=== PATIENT | male | born 1940 | race Caucasian/White ===

== ENCOUNTER 2018-04-27 13:39 | Outpatient (CLI) | payer MEDICARE, BC | END 2018-04-27 13:40 | disposition home or self-care (01) | LOC: LABBT 13:39 | PROVIDERS: ATTEND Internal Medicine Cardiovascular Disease | DX: Z01.818 Encounter for other preprocedural examination (principal); I48.92 Unspecified atrial flutter | CPT/HCPCS: 93005; 93010 ==

== ENCOUNTER 2018-05-03 09:51 | Day surgery (SDC) | payer MEDICARE, BC ==
[2018-04-27 14:01] VITALS: BMI 28.5
[2018-05-03] MEDS ORDERED: Lidocaine 1% PF 5 ML VIAL ONE ×2 (09:55→12:34)
[2018-05-03] MEDS ORDERED: PROPOFOL 200 MG/20 ML VIAL ONE (09:55)
--- NOTE | 2018-05-03 19:01 | ECHO ---
DATE OF SERVICE: 05/03/2018. PREPROCEDURE DIAGNOSIS: Atrial flutter. PROCEDURES PERFORMED: Transesophageal echo. The anesthesiology department provided with sedation for the patient. Please see their notes for det ails. After adequate sedation was achieved, the transesophageal probe was inserted into the mouth and into the esophagus and multiplanar views were then obtained. Left ventricle is normal size with normal wall thickness. Systolic function is normal with estimated EF at 50-55%. Left atrium is severely dilated. Left atrial appendage is small with normal velocities. No evidence of mass or thrombus. Right atrium is mildly dilated. No mass or thrombus. Interatrial septum appears to be intact by color Doppler. Right ventricle is not entirely well seen. Aortic valve is structurally normal. Three cusps, no stenosis or regurgitation. Mitral valve is structurally normal. There is mild MR, no stenosis. Tricuspid valve structurally normal. There is mild TR. Pulmonary valve is structurally normal. There is no stenosis or regurgitation. Thoracic aorta is without significant atherosclerotic disease. CONCLUSIONS: 1. Normal systolic function, EF of 50-55%. 2. Severely dilated left atrium. 3. Left atrial appendage is small without mass or thrombus, normal velocities. 4. The patient in atrial flutter during procedure. 5. Mild MR, mild TR.
--- NOTE | 2018-05-03 19:07 | OP ---
DATE OF SERVICE: 05/03/2019. PROCEDURES PERFORMED. Synchronized DC cardioversion. SUMMARY: The patient was brought to the outpatient area for a planned SILVIANO cardioversion. Please see SILVIANO repor t for further detail. After adequate sedation was achieved by the Anesthesia Department and the SILVIANO showed no evidence of t hrombus in the left atrial appendage, one single 150 joules synchronized cardioversion shock was del ivered successfully converting him from atrial flutter into sinus bradycardia. Patient tolerated pro cedure well. RECOMMENDATIONS: 1. Continue flecainide, Eliquis and beta jeferson. 2. Follow up in the office in 1 month.
--- NOTE | 2018-05-07 22:10 | EKG ---
Test Reason : PREOP Blood Pressure : / mmHG Vent. Rate : 050 BPM Atrial Rate : 250 BPM P-R Int : 000 ms QRS Dur : 098 ms QT Int : 506 ms P-R-T Axes : 252 -17 -09 degrees QTc Int : 461 ms Atrial flutter with variable A-V block Moderate voltage criteria for LVH, may be normal variant Junctional ST depression, probably normal Abnormal ECG Confirmed by LIZBETH SARAH (2) on 05/07/2018 10:09:39 PM Referred By: NATE Confirmed By:LIZBETH SARAH
== END 2018-05-03 14:01 | disposition home or self-care (01) ==
LOC: CCL 09:51
PROVIDERS: ATTEND Internal Medicine Cardiovascular Disease
PROC: B24BZZ4 Ultrasonography of Heart with Aorta, Transesophageal (ICD-10-PCS; principal; 2018-05-03)
PROC: 5A2204Z Restoration of Cardiac Rhythm, Single (ICD-10-PCS; 2018-05-03)
DX: I48.3 Typical atrial flutter (principal); I08.1 Rheumatic disorders of both mitral and tricuspid valves; I10 Essential (primary) hypertension; Z79.01 Long term (current) use of anticoagulants; Z79.899 Other long term (current) drug therapy
CPT/HCPCS: 92960; 93005; 93010; 93312; J2001; J2704

== ENCOUNTER 2018-08-11 08:57 | Outpatient (CLI) | payer MEDICARE, BC ==
--- NOTE | 2018-08-11 13:14 | PET ---
RADIONUCLIDE PET SCAN WITH CT ATTENUATION CORRECTION: HISTORY: Gastric cancer. Pancreatic mass. No prior imaging is available for direct correlation. FINDINGS: A large, ill-defined mass at the posterior aspect of the gastric fundus also involves the pancreatic tail and splenic artery, very poorly defined on the noncontrast images. Maximum SUV is 24.2. Near it in the left upper quadrant, an ill-defined soft tissue density mass estimated at 4.7 cm diameter show s maximum SUV of 31.3. Multiple additional ill-defined masses are scattered throughout the peritoneal cavity. A small implan t at the left anterior upper quadrant peritoneum shows maximum SUV of 10.9. Within the right upper qu adrant, a large lobular soft tissue density mass, estimated at 9.0 cm, shows maximum SUV of 22.2. At the lateral aspect of the right lower quadrant, a smaller soft tissue density mass, estimated at 2.0 cm, shows maximum SUV of 12.4. Within the left lower quadrant, an ill-defined soft tissue density mas s involving the sigmoid colon shows maximum SUV of 34.5. Deep within the dependent portion of the pel vis, uptake is favored to be associated with free fluid and shows a maximum SUV of 23.1. At the anterior aspect of the left upper lung lobe, a 1.4 cm linear soft tissue density lesion shows maximum SUV O0f 2.6. A prevascular mediastinal lymph node, estimated at 2.7 cm, shows maximum SUV of 5.7. Old, traumatic injury of the right posterolateral chest wall is apparent. Cysts arise from the cortex of each kidney. There is mild distention of the left renal collecting system and proximal ureter. A stone is not visible. Partial obstruction may be related to the metastatic intra-abdominal implants o r reactive inflammation. Small amount of free fluid is also seen over the dome of the liver. IMPRESSION: 1. Multiple hypermetabolic masses throughout the abdomen, consistent with widespread metastatic dise ase. The largest masses are associated with posterior wall of gastric fundus and pancreatic tail, and with intraperitoneal ill-defined soft tissue density masses throughout each side of the abdomen, as detailed above. 2. Metastatic disease also involves the left upper lobe lung and the prevascular mediastinal lymph n ode. POS: [facility]
== END 2018-08-11 08:58 | disposition home or self-care (01) ==
LOC: PET 08:57
PROVIDERS: ATTEND Internal Medicine Hematology & Oncology
DX: C16.9 Malignant neoplasm of stomach, unspecified (principal); C78.01 Secondary malignant neoplasm of right lung; C77.1 Secondary and unspecified malignant neoplasm of intrathoracic lymph nodes; R19.09 Other intra-abdominal and pelvic swelling, mass and lump
CPT/HCPCS: 78815; A9552

== ENCOUNTER 2018-08-16 09:53 | Outpatient (CLI) | payer MEDICARE, BC ==
--- NOTE | 2018-08-16 11:25 | RAD ---
TWO VIEWS OF THE CHEST: Comparison: None. History: Pre-operative radiograph. FINDINGS: Two views of the chest shows a normal sized cardiomediastinal silhouette. There is no evidence of con solidation, mass, or pleural effusion. Multiple remote right rib fractures are seen. IMPRESSION: No evidence of acute cardiopulmonary disease. POS: [facility]
--- NOTE | 2018-08-16 17:13 | EKG ---
Test Reason : Blood Pressure : / mmHG Vent. Rate : 051 BPM Atrial Rate : 051 BPM P-R Int : 000 ms QRS Dur : 106 ms QT Int : 470 ms P-R-T Axes : 000 -08 022 degrees QTc Int : 433 ms Sinus arrhythmia Minimal voltage criteria for LVH, may be normal variant Cannot exclude Anterior infarct , age undetermined T wave abnormality, consider anterior ischemia Abnormal ECG Confirmed by SELMA WHITFIELD ([id number]) on 08/16/2018 5:13:37 PM Referred By: SCHUYLER Confirmed By:SELMA WHITFIELD
== END 2018-08-16 09:54 | disposition home or self-care (01) ==
LOC: LABBT 09:53
PROVIDERS: ATTEND Specialist
DX: Z01.818 Encounter for other preprocedural examination (principal); C16.9 Malignant neoplasm of stomach, unspecified; K86.9 Disease of pancreas, unspecified; R16.0 Hepatomegaly, not elsewhere classified
CPT/HCPCS: 71046; 93005; 93010

== ENCOUNTER 2018-08-22 11:25 | Day surgery (SDC) | payer MEDICARE, BC ==
[2018-08-16 10:56] VITALS: BMI 26.6
[2018-08-22] MEDS ORDERED: Ketorolac Tromethamine 30 MG/ML VIAL ONE (12:20)
[2018-08-22] MEDS ORDERED: ceFAZolin Sodium 2 GM/100 ML BAG ONE (12:20)
[2018-08-22] MEDS ORDERED: Lidocaine 1% (PF) 30 ML VIAL ONE (12:32)
[2018-08-22] MEDS ORDERED: Bupivacaine/Epinephrine 0.25% 30 ML VIAL ONE (12:32)
[2018-08-22] MEDS ORDERED: Propofol 500 MG/50 ML VIAL ONE (12:45)
[2018-08-22] MEDS ORDERED: Fentanyl 100 MCG/2 ML VIAL ONE (13:17)
[2018-08-22] MEDS ORDERED: Lidocaine 1% PF 5 ML VIAL ONE (13:40)
[2018-08-22] MEDS ORDERED: ePHEDrine 50 MG/ML VIAL ONE (13:40)
[2018-08-22] MEDS ORDERED: PROPOFOL 200 MG/20 ML VIAL ONE (13:40)
[2018-08-22] MEDS ORDERED: Ondansetron PF 4 MG/2 ML Vial ONE (13:40)
--- NOTE | 2018-08-22 16:10 | RAD ---
CHEST ONE VIEW: HISTORY: Mediport placement. COMPARISON: Chest radiograph from 08/16/2018. FINDINGS: A new port catheter is in place with the tip at the inferior SVC, in good position. Multiple dysplas tic right-sided old rib fractures. The aorta is mildly tortuous. IMPRESSION: Uncomplicated placement of port catheter. No pneumothorax. POS: [facility]
--- NOTE | 2018-08-23 09:58 | OP ---
DATE OF PROCEDURE: 08/22/2018 PREOPERATIVE DIAGNOSIS: Gastroesophageal cancer. POSTOPERATIVE DIAGNOSIS: Gastroesophageal cancer PROCEDURE PERFORMED: Placement of right subclavian standard-sized power compatible MediPort. ANESTHESIA: Total intravenous anesthesia with local using 0.25% Marcaine with epinephrine. INDICATIONS: The patient is a 78-year-old white male. He has recently been diagnosed with a distal esophageal malignancy. Chemotherapy has been recommended. MediPort placement has been requested for this purpose. DESCRIPTION OF OPERATION: Informed consent was obtained. The patient was taken to the operating room where total intravenous anesthesia was obtained with the patient in supine position. Right periclavicular area was prepped with ChloraPrep and draped in sterile fashion. Local anesthetic was infiltrated and a large-gauge needle was passed under the clavicle in the subclavian vein. Guidewire was passed through the needle and fluoroscopically confirmed to enter the superior vena cava. Additional local anesthetic was infiltrated and transverse incision was created based on needle insertion site. A subcutaneous pocket was dissected inferiorly. Introducer dilator was passed over the guidewire under fluoroscopic guidance. The guidewire and dilator were removed, and the catheter was passed through the introducer. The tip of the catheter was positioned at the atriocaval junction and the catheter was trimmed to the appropriate length and secured to the locking hub of the MediPort. The port was then placed in the subcutaneous pocket where it was secured to the pectoral fascia with 2 interrupted sutures of 3-0 Prolene. The incision was then closed in layers with 3-0 and 4-0 Monocryl. Additional local anesthetic was infiltrated. The port was cannulated with a Melissa needle and it aspirated blood freely and was flushed with heparinized saline. Dermabond was placed externally on the skin incision. There were no complications. Blood loss was negligible. The patient tolerated the procedure well and was taken to recovery room in stable condition. FINDINGS: A standard size port was placed uneventfully into the right subclavian vein. The patient had normal anatomy internally and externally. There was essentially no blood loss and there were no complications. The patient tolerated the procedure well. Job ID: [id number]
== END 2018-08-22 15:31 | disposition home or self-care (01) ==
LOC: SDC 11:25
PROVIDERS: ATTEND Specialist
PROC: 02HV33Z Insertion of Infusion Device into Superior Vena Cava, Percutaneous Approach (ICD-10-PCS; principal; 2018-08-22)
PROC: B518ZZA Fluoroscopy of Superior Vena Cava, Guidance (ICD-10-PCS; 2018-08-22)
DX: C15.5 Malignant neoplasm of lower third of esophagus (principal); I10 Essential (primary) hypertension; K86.9 Disease of pancreas, unspecified; Z79.899 Other long term (current) drug therapy; Z98.890 Other specified postprocedural states
CPT/HCPCS: 71045; C1788; J0131; J0690; J1642; J1885; J2001; J2405; J2704; J3010; J3490

== ENCOUNTER 2018-10-09 16:02 | Inpatient (IN) | payer MEDICARE, BC ==
[2018-10-09 18:05] VITALS: BMI 24.2
[2018-10-09] MEDS ORDERED: Acetaminophen 325 MG TAB PO PRN (18:15)
[2018-10-09 18:53] LABS: Bilirubin Negative (Negative); Blood, Urine Negative (Negative); Clarity CLEAR (Clear); Glucose, Urine (Dipstick) Negative (Negative); Leukocyte Negative (Negative); Nitrite Negative (Negative); Protein, Urine (Dipstick) Negative (Neg-Trace); Specific Gravity, Urine 1.015 (1.002-1.036)
[2018-10-09 18:56] LABS: Bacteria/HPF None Seen HPF (None Seen); Hyaline Casts/LPF 0-3 HYALINE CAST LPF (0-3 Hyaline); RBC/HPF 0-3 HPF (0-3); Squamous Epithelial None Seen HPF (0-3); WBC/HPF 0-3 HPF (0-3)
[2018-10-09 19:14] LABS: ALT (SGPT) 16 U/L (8-55); AST (SGOT) 30 U/L (5-34); Albumin 3.3 g/dL (3.4-4.8); Alkaline Phosphatase 111 U/L (40-150); Anion Gap 10 mmol/L (10-20); BUN (Urea Nitrogen) 27 mg/dL (8.4-25.7); Bilirubin, Total 0.7 mg/dL (0.2-1.2); Calc. Creatinine Clearance 56 mL/min (70-130); Calcium 8.2 mg/dL (7.8-10.44); Carbon Dioxide 26 mmol/L (23-31); Chloride 101 mmol/L (98-107); Estimated GFR-MDRD 49; Globulin 2.1 g/dL (2.4-3.5); Glucose 131 mg/dL (83-110); Protein, Total 5.4 g/dL (5.8-8.1); Sodium 133 mmol/L (136-145)
[2018-10-09] MEDS ORDERED: Ondansetron PF 4 MG/2 ML Vial IVP PRN (21:09)
[2018-10-09] MEDS ORDERED: Ondansetron ODT 4 MG TAB PO PRN (21:09)
[2018-10-09] MEDS: Flecainide 50 MG TAB PO SCH (21:14)
[2018-10-09] MEDS: Cefepime 2 GM in Sodium Chloride 0.9% 100 ML IVPB SCH (22:09)
--- NOTE | 2018-10-10 03:29 | HP ---
PRIMARY CARE DOCTOR: Dr. Valdez. CODE STATUS: Full code. TIME OF EVALUATION: 9 p.m. CHIEF COMPLAINT: Fever. HISTORY OF PRESENT ILLNESS: This is a 78-year-old male patient with past medical history of gastric cancer recently diagnosed, being treated by Dr. Brendon Valdez. The patient received the last chemo on Tuesday and he reported that he gone to see Dr. Valdez through the [facility] because he was very weak and also he was found to have fever with no clear triggers and no alleviating factors. Symptoms were moderate. REVIEW OF SYSTEMS: CONSTITUTIONAL: The patient has fever, chills, generalized weakness. RESPIRATORY: The patient has low oxygen, needing oxygen by nasal cannula, scant cough and sputum production, mild shortness of breath. CARDIOVASCULAR: No chest pain or palpitation. GASTROINTESTINAL: No nausea. No vomiting, diarrhea, or abdominal pain. BABY SITTER: No dizziness, headache, or feeling lightheaded. GENITOURINARY: No burning on urination. EXTREMITIES: No leg swelling. All other systems were reviewed and negative except for the findings mentioned above. PAST MEDICAL HISTORY: Positive for gastric cancer, status post chemo, also history of A-flutter treated by Dr. Truong. FAMILY HISTORY: Reviewed and noncontributory for current presentation. SOCIAL HISTORY: The patient lives with family. No alcohol. No drugs. PAST SURGICAL HISTORY: Hip replacement, SILVIANO by Dr. Truong. ALLERGIES: NO KNOWN DRUG ALLERGIES. REPORTED MEDICATIONS: 1. Metoprolol 12.5 mg p.o. daily (Toprol-XL). 2. Flecainide. 3. Ferrous sulfate. 4. Multivitamins. PHYSICAL EXAMINATION: VITAL SIGNS: On presentation, the patient had fever in the [facility]. In the hospital, temperature was 98.6, blood pressure and heart rate within normal limits. The patient was hypoxic, needing nasal cannula 2 L to keep saturation above 90. GENERAL APPEARANCE: The patient is alert, oriented, not in acute distress. HEENT: Eyes, normal conjunctiva. Moist oral mucosa. Anicteric. No JVD. RESPIRATORY: Bilateral air entry. No rales. No wheezing. Symmetric expansion. CARDIOVASCULAR: Normal rate, regular rhythm. No murmurs. No gallop. No edema. ABDOMEN: Soft. Normal bowel sounds. MUSCULOSKELETAL: Baseline range of motion and strength. No tenderness. SKIN: Warm, intact. No pallor. No rash. No redness. Peripheral pulses are present. Capillary refill seems to be intact. NEURO: No evidence of any new focal weakness. Baseline speech. Cranial nerves seems to be intact. PSYCH: The patient is in good mood. No anxiety. Optimal judgment. LABORATORY DATA: Chest x-ray was done and the most likely patient to have pneumonia. We will need confirmation from chest x-ray and await to follow radiology results. Labs were reviewed. The patient has sodium 133, potassium 4.0, chloride 101, carbon dioxide 26, anion gap 10, BUN 27, creatinine 1.41, the previous creatinine was 1.69, GFR was 49, glucose 131, calcium 8.2, total bilirubin 0.7. LFTs were negative. Beta-natriuretic peptide 170. Albumin 3.3, globulin 2.1. Serum total protein is 5.4. UA was done and was negative. ASSESSMENT AND PLAN: The patient will be placed in the hospital with following medical problems: 1. Severe anemia. Also, the hemoglobin is in the paper chart reportedly, the hemoglobin was around 6. The patient receiving 3 PRBCs that has been ordered during admission to the hospital. Oncology to follow this problem. We will follow recommendations. 2. Possible pneumonia. The patient has shortness of breath, needing oxygen. Chest x-ray is pending. The patient had fever. We have placed him on antibiotics so far. We will follow cultures and adjust treatment as needed depending on sensitivity. 3. History of stomach cancer. This problem is being followed by Dr. Valdez, follow recommendations, has been consulted. 4. hx of atrial flutter. The patient has been followed with Dr. Truong in the past. This problem is chronic and is stable. No need for acute intervention at this point. Reconcile home medications. 5. Deep venous thrombosis prophylaxis. We will apply SCDs. 6. Acute hypoxic respiratory failure - needing oxygen on presentation to keep saturation above 90, likely due to pneumonia treatment as above. Job ID: [id number] [facility]
[2018-10-10 03:35] LABS: Band 9 % (5-11); Hemoglobin 6.3 g/dL (14.0-18.0); Lymphocytes 18 % (21-51); MDiff Complete? YES; Mean Corpuscular HGB CONC 32.5 g/dL (32.0-36.0); Mean Corpuscular Hemoglobin 30.8 pg (27.0-31.0); Mean Corpuscular Volume 94.7 fL (78.0-98.0); Mean Platelet Volume 8.3 fL (7.4-10.4); Monocytes 13 % (0-10); Neutrophil 60 % (42-75); Platelet Count 74 thou/uL (130-400); Platelet Morphology Comment Appears Decreased; RBC Distribution Width 15.2 % (11.5-14.5); Red Blood Cell (RBC) Count 2.05 mill/uL (4.70-6.10); White Blood Cell (WBC) Count 8.3 thou/uL (4.8-10.8)
[2018-10-10 03:55] LABS: Anion Gap 9 mmol/L (10-20); BUN (Urea Nitrogen) 29 mg/dL (8.4-25.7); Calc. Creatinine Clearance 62 mL/min (70-130); Calcium 7.9 mg/dL (7.8-10.44); Carbon Dioxide 26 mmol/L (23-31); Chloride 104 mmol/L (98-107); Estimated GFR-MDRD 55; Glucose 116 mg/dL (83-110); Sodium 135 mmol/L (136-145)
--- NOTE | 2018-10-10 08:52 | RAD ---
CHEST TWO VIEWS: Indication: History of hypoxia. Comparison: 08-22-18 FINDINGS: Right chest wall port is stable. Mild cardiomegaly is stable. Chronic lung changes are similar appear ing. There is stable post-traumatic deformity involving the right posterolateral chest wall. No airsp giovanni opacity, pleural effusion or pneumothorax was evident. IMPRESSION: Stable exam. No acute cardiopulmonary abnormality. POS: [facility]
[2018-10-10] MEDS: Flecainide 50 MG TAB PO SCH ×2 (09:07→21:36)
[2018-10-10] MEDS: Multivit, Therapeutic 1 TAB PO SCH (09:08)
[2018-10-10] MEDS: Ferrous Sulfate 325 MG TAB PO SCH (09:08)
[2018-10-10] MEDS: Cefepime 2 GM in Sodium Chloride 0.9% 100 ML IVPB SCH ×2 (09:09→21:37)
[2018-10-10 09:34] LABS: Hemoglobin 6.5 g/dL (14.0-18.0)
[2018-10-10 16:21] LABS: Hemoglobin 6.9 g/dL (14.0-18.0)
--- NOTE | 2018-10-10 17:05 | PDOC.PN ---
- Subjective Encounter Start Date: 10/10/18 Encounter Start Time: 17:03 Subjective: Admitted due to worsening weakness after chemotherapy. -: Also had low grade fever temp of 100.4 and severe anemia of 6. -: S/p 2 PRBC with no significant increase in Hb. Feeling better overall. - Objective Resuscitation Status - Order Detail: 10/09/18 21:09 Resuscitation Status Routine Resuscitation Status: FULL: Full Resuscitation Vital Signs & Weight: Vital Signs (12 hours) Temp Pulse Pulse Resp BP BP Pulse Ox 10/10/18 15:11 98.0 F 60 18 139/68 10/10/18 12:40 97.4 F L 58 L 18 136/67 10/10/18 12:27 97.9 F 59 L 18 121/61 10/10/18 11:40 98.0 F 68 18 128/67 97 10/10/18 08:00 97 10/10/18 07:50 98.1 F 71 18 139/76 97 Weight Admit Weight 198 lb 14.4 oz Weight 198 lb 14.4 oz I&O: 10/09/18 10/10/18 10/11/18 06:59 06:59 06:59 Intake Total 1280 1087 Output Total 1000 900 Balance 280 187 Result Diagrams: 10/10/18 15:50 10/10/18 03:05 Phys Exam - Physical Examination Constitutional: NAD HEENT: PERRLA, moist MMs Neck: supple Respiratory: no wheezing, no rhonchi fair air entry with right base crackles. Cardiovascular: RRR Gastrointestinal: soft, positive bowel sounds Musculoskeletal: no edema, pulses present Neurological: non-focal, moves all 4 limbs Psychiatric: A&O x 3 Dx/Plan (1) Acute on chronic anemia Code(s): D64.9 - ANEMIA, UNSPECIFIED Status: Acute (2) Thrombocytopenia Code(s): D69.6 - THROMBOCYTOPENIA, UNSPECIFIED Status: Acute (3) Atrial flutter Code(s): I48.92 - UNSPECIFIED ATRIAL FLUTTER Status: Acute (4) Iron deficiency anemia Code(s): D50.9 - IRON DEFICIENCY ANEMIA, UNSPECIFIED Status: Acute (5) CKD (chronic kidney disease) Code(s): N18.9 - CHRONIC KIDNEY DISEASE, UNSPECIFIED Status: Acute (6) Gastric cancer Status: Acute (7) Right lower lobe pneumonia Code(s): J18.1 - LOBAR PNEUMONIA, UNSPECIFIED ORGANISM Status: Acute (8) HTN (hypertension) Code(s): I10 - ESSENTIAL (PRIMARY) HYPERTENSION Status: Acute (9) Physical deconditioning Code(s): R53.81 - OTHER MALAISE Status: Acute - Plan Transfuse 1 more PRBC. Monitor H/H -: Replete bodys iron with IV iron -: Continue antibiotics. -: cardiology and Oncology following. -: PT eval and treat. * .
[2018-10-10] MEDS ORDERED: Sodium Chloride 0.9% (PF) 10 ML VIAL FS PRN (17:53)
[2018-10-10] MEDS: Pantoprazole 40 MG VIAL IVP SCH (20:20)
[2018-10-10] MEDS: Iron, Sodium Ferric Gluconate 250 MG in Sodium Chloride 0.9% 100 ML IVPB SCH (20:20)
--- NOTE | 2018-10-11 00:14 | CON ---
DATE OF CONSULTATION: REASON FOR CONSULT: Adenocarcinoma of the stomach. HISTORY OF PRESENT ILLNESS: Mr. 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 At the time of diagnosis, he had a hemoglobin of 5.3 and was transfused 4 units. He was seen by Dr. Miller. He was started on chemotherapy consisting of FOLFOX and Herceptin. He has received 4 doses, his 1st one was September 05, last dose was October 03. His hemoglobin has been stable throughout treatment with hemoglobin in the upper 7 range. He presented to the clinic yesterday with complaints of shortness of breath and weakness. He had 103.1 fever. He had low oxygen saturation on room air. His hemoglobin was 6.2 at that time. He was admitted for fever and anemia. He was started on antibiotics. All cultures are currently negative. He has received 3 units of packed RBCs with minimal improvement of his hemoglobin to 6.9. He did have a positive occult blood in his stool. He has been afebrile since admission. PAST MEDICAL HISTORY: 1. Stage IV gastric cancer. 2. Hypertension. PAST SURGICAL HISTORY: 1. Hip surgery. 2. Endoscopy. 3. Biopsy. ALLERGIES: NO KNOWN DRUG ALLERGIES. HOME MEDICATIONS: 1. Ferrous sulfate 325 daily. 2. Flecainide acetate 50 mg q.12 hours. 3. Toprol-XL 25 mg daily. 4. Protonix 40 mg b.i.d. FAMILY HISTORY: Sisters had breast cancer. SOCIAL HISTORY: , has 2 children. Lives with his spouse. No alcohol, tobacco, or illicit drug use. REVIEW OF SYSTEMS: A 10-point review of systems is negative except for noted in HPI. PHYSICAL EXAMINATION: VITAL SIGNS: Temperature is 98.0, pulse is 18, respiratory rate 16, BP is 139/ 68. GENERAL: This is a well-developed, well-nourished male, in no acute distress. HEENT: Normocephalic, atraumatic. Pupils are equal and reactive to light. NECK: Supple. CV: Regular rate and rhythm. LUNGS: He has rhonchi on right posterior. GI: No nausea, vomiting, diarrhea, constipation, or abdominal pain. : No dysuria or hematuria. MUSCULOSKELETAL: No joint or back pain. SKIN: No rash or pruritus. HEMATOLOGICAL: No petechiae or purpura. NEUROLOGICAL: Nonfocal. PSYCH: He is alert, oriented and appropriate. PERTINENT LABS AND X-RAYS: Current WBCs 8.3, hemoglobin 6.9, hematocrit 21.0, platelet count is 74,000. He has 60% neutrophils, 9% bands, 18% lymphocytes. Sodium is 135, potassium 4.9, chloride 104, CO2 is 26, BUN is 29, creatinine 1.27, calcium is 7.9, bilirubin is 0.7, AST is 30, ALT 16, alkaline phosphatase is 111. BNP is 170. Serum total protein 5.4, albumin 3.3, globulin 2.1. Urine was negative. Chest x-ray showed no acute process. ASSESSMENT: 1. Stage IV gastric cancer. 2. Severe symptomatic anemia secondary to gastrointestinal bleeding and chemotherapy. 3. Fever. DISCUSSION: The patient has been transfused 3 units of packed RBCs. He does have positive blood in his stool. We will begin Protonix and monitor his CBC closely. Consult Dr. Miller for his opinion. He will be continued on antibiotics. His cough and upper respiratory symptoms are much improved since admission. Case was discussed with Dr. Valdez. Thank you for the consult. We will follow him closely. Job ID: [id number] [facility]
[2018-10-11] MEDS ORDERED: Benzonatate 100 MG CAP PO PRN (01:14)
[2018-10-11 06:17] LABS: Anion Gap 10 mmol/L (10-20); BUN (Urea Nitrogen) 25 mg/dL (8.4-25.7); Calc. Creatinine Clearance 65 mL/min (70-130); Calcium 7.9 mg/dL (7.8-10.44); Carbon Dioxide 26 mmol/L (23-31); Chloride 104 mmol/L (98-107); Estimated GFR-MDRD 58; Glucose 148 mg/dL (83-110); Magnesium 2.1 mg/dL (1.6-2.6); Potassium 3.5 mmol/L (3.5-5.1); Sodium 136 mmol/L (136-145)
[2018-10-11 06:31] LABS: Mean Corpuscular HGB CONC 33.2 g/dL (32.0-36.0); Mean Corpuscular Hemoglobin 31.3 pg (27.0-31.0); Mean Corpuscular Volume 94.1 fL (78.0-98.0); Mean Platelet Volume 8.2 fL (7.4-10.4); Platelet Count 68 thou/uL (130-400); RBC Distribution Width 15.5 % (11.5-14.5); Red Blood Cell (RBC) Count 2.22 mill/uL (4.70-6.10); White Blood Cell (WBC) Count 5.3 thou/uL (4.8-10.8)
[2018-10-11 06:40] LABS: Anisocytosis SLIGHT = 6-15 cells (100X) (0-5/hpf); Band 7 % (5-11); Eosinophils 1 % (0-10); Lymphocytes 19 % (21-51); MDiff Complete? YES; Monocytes 19 % (0-10); Myelocyte 1 % (0-0); Neutrophil 53 % (42-75); Platelet Morphology Comment Appears Decreased
--- NOTE | 2018-10-11 08:23 | PRG ---
DATE OF SERVICE: 10/11/2018 SUBJECTIVE: The patient is feeling better today and had a good night's rest; however, he does complain of severe dry cough and has started Tessalon Perles with almost resolution of the cough. Denies any shortness of breath and otherwise feels well. He has not had a bowel movement yesterday, which was black. OBJECTIVE: VITAL SIGNS: Temperature 98.2, pulse 70, respirations 18, saturating 94% on room air, blood pressure 138/65. GENERAL APPEARANCE: The patient is lying in bed, in no acute distress. HEENT: Normocephalic, atraumatic, pale. Respirations are nonlabored. NEUROLOGIC: Cranial nerves 2 through 12 are grossly intact. PSYCH: A and O x3. LABORATORY DATA: White blood cells 5.3, hemoglobin 7.0, platelets 68. Sodium 136, potassium 3.5, BUN 25, creatinine 1.22, glucose 148, calcium 7.9, magnesium 2.1. ASSESSMENT AND PLAN: A 78-year-old male with metastatic gastric cancer, currently on the FOLFOX plus Herceptin, presenting with likely upper gastrointestinal bleed. The patient has a known stomach mass and ulcer, and has had bleeding and blood transfusions in the past. The patient has received 3 units of blood on this admission with minimal improvement, and after his last transfusion, his hemoglobin went to 6.9 and over the last 12 hours, has been stable and is currently 7.0. Dr. Miller has been consulted and should see the patient this morning, and we will await his decision if any intervention is needed at this time. I am going to also recheck his CBC again in the next 8 to 12 hours. We will continue to follow. Job ID: [id number]
[2018-10-11] MEDS ORDERED: Pantoprazole 40 MG VIAL IVP SCH (09:00)
[2018-10-11] MEDS: Ferrous Sulfate 325 MG TAB PO SCH (09:16)
[2018-10-11] MEDS: Flecainide 50 MG TAB PO SCH ×2 (09:16→21:16)
[2018-10-11] MEDS: Cefepime 2 GM in Sodium Chloride 0.9% 100 ML IVPB SCH ×2 (09:17→21:17)
[2018-10-11] MEDS: Multivit, Therapeutic 1 TAB PO SCH (09:17)
[2018-10-11] MEDS: Iron, Sodium Ferric Gluconate 250 MG in Sodium Chloride 0.9% 100 ML IVPB SCH (10:24)
--- NOTE | 2018-10-11 14:52 | PDOC.PN ---
- Subjective Encounter Start Date: 10/11/18 Encounter Start Time: 12:51 Subjective: Feeling better. -: S/p 3 PRBC. -: Denied fever or SOB. getting stronger - Objective Resuscitation Status - Order Detail: 10/09/18 21:09 Resuscitation Status Routine Resuscitation Status: FULL: Full Resuscitation Vital Signs & Weight: Vital Signs (12 hours) Temp Pulse Resp BP Pulse Ox 10/11/18 12:00 98.2 F 61 16 143/71 H 95 10/11/18 08:00 94 L 10/11/18 07:55 97.9 F 62 18 129/76 94 L 10/11/18 04:00 98.2 F 70 18 138/65 94 L Weight Admit Weight 198 lb 14.4 oz Weight 198 lb 14.4 oz I&O: 10/10/18 10/11/18 10/12/18 06:59 06:59 06:59 Intake Total 1280 1687 237 Output Total 1000 2050 Balance 280 -363 237 Result Diagrams: 10/11/18 05:45 10/11/18 05:45 Phys Exam - Physical Examination Constitutional: NAD HEENT: PERRLA, moist MMs Neck: no JVD, supple Respiratory: no wheezing, no rhonchi fair air ewntry bilaterally with few bibasal crackles/transmitted sound. Cardiovascular: irregular Gastrointestinal: soft, non-tender, no distention, positive bowel sounds Musculoskeletal: no edema, pulses present Neurological: non-focal, moves all 4 limbs Psychiatric: A&O x 3 Dx/Plan (1) Acute on chronic anemia Code(s): D64.9 - ANEMIA, UNSPECIFIED Status: Acute (2) Thrombocytopenia Code(s): D69.6 - THROMBOCYTOPENIA, UNSPECIFIED Status: Acute (3) Atrial flutter Code(s): I48.92 - UNSPECIFIED ATRIAL FLUTTER Status: Acute (4) Iron deficiency anemia Code(s): D50.9 - IRON DEFICIENCY ANEMIA, UNSPECIFIED Status: Acute (5) CKD (chronic kidney disease) Code(s): N18.9 - CHRONIC KIDNEY DISEASE, UNSPECIFIED Status: Acute (6) Gastric cancer Status: Acute (7) Right lower lobe pneumonia Code(s): J18.1 - LOBAR PNEUMONIA, UNSPECIFIED ORGANISM Status: Acute (8) HTN (hypertension) Code(s): I10 - ESSENTIAL (PRIMARY) HYPERTENSION Status: Acute (9) Physical deconditioning Code(s): R53.81 - OTHER MALAISE Status: Acute - Plan Monitor H/H. -: Awaiting GI input. -: Gastric cancer treatment as per Oncology. -: Continue antibiotics. -: Continue tambocor and metoprolol for atrial flutter * .
[2018-10-11] MEDS: Pantoprazole 40 MG VIAL IVP SCH (21:17)
[2018-10-12 05:49] LABS: Anisocytosis SLIGHT = 6-15 cells (100X) (0-5/hpf); Band 3 % (5-11); Eosinophils 1 % (0-10); Hemoglobin 7.6 g/dL (14.0-18.0); Lymphocytes 26 % (21-51); MDiff Complete? YES; Mean Corpuscular HGB CONC 32.4 g/dL (32.0-36.0); Mean Corpuscular Hemoglobin 30.6 pg (27.0-31.0); Mean Corpuscular Volume 94.2 fL (78.0-98.0); Mean Platelet Volume 8.7 fL (7.4-10.4); Monocytes 17 % (0-10); Neutrophil 53 % (42-75); Platelet Count 70 thou/uL (130-400); Platelet Morphology Comment Appears Decreased; Polychromasia SLIGHT = 2-3 cells (100X) (0-2/hpf); RBC Distribution Width 15.9 % (11.5-14.5); Red Blood Cell (RBC) Count 2.49 mill/uL (4.70-6.10); White Blood Cell (WBC) Count 5.2 thou/uL (4.8-10.8)
--- NOTE | 2018-10-12 07:54 | PDOC.PN ---
- Subjective Encounter Start Date: 10/12/18 Encounter Start Time: 07:52 Subjective: had a fall earlier after showering sustaining few samml scrapes/ bruises. -: No head trauma. -: For EGD today - Objective Resuscitation Status - Order Detail: 10/09/18 21:09 Resuscitation Status Routine Resuscitation Status: FULL: Full Resuscitation Vital Signs & Weight: Vital Signs (12 hours) Temp Pulse Resp BP Pulse Ox 10/12/18 07:49 98.6 F 64 16 136/77 95 10/12/18 05:12 98.1 F 64 20 139/72 96 10/11/18 20:00 97 Weight Admit Weight 198 lb 14.4 oz Weight 198 lb 14.4 oz I&O: 10/11/18 10/12/18 10/13/18 06:59 06:59 06:59 Intake Total 1687 1287 Output Total 2049 Balance -363 1287 Result Diagrams: 10/12/18 05:04 10/11/18 05:45 Phys Exam - Physical Examination Constitutional: NAD HEENT: PERRLA, moist MMs Neck: no JVD, supple Respiratory: no wheezing, no rhonchi good air entry with transmitted sound Cardiovascular: no significant murmur Gastrointestinal: soft, non-tender, no distention, positive bowel sounds Musculoskeletal: no edema Neurological: non-focal, moves all 4 limbs Psychiatric: A&O x 3 Dx/Plan (1) Acute on chronic anemia Code(s): D64.9 - ANEMIA, UNSPECIFIED Status: Acute (2) Thrombocytopenia Code(s): D69.6 - THROMBOCYTOPENIA, UNSPECIFIED Status: Acute (3) Atrial flutter Code(s): I48.92 - UNSPECIFIED ATRIAL FLUTTER Status: Acute (4) Iron deficiency anemia Code(s): D50.9 - IRON DEFICIENCY ANEMIA, UNSPECIFIED Status: Acute (5) CKD (chronic kidney disease) Code(s): N18.9 - CHRONIC KIDNEY DISEASE, UNSPECIFIED Status: Acute (6) Gastric cancer Status: Acute (7) Right lower lobe pneumonia Code(s): J18.1 - LOBAR PNEUMONIA, UNSPECIFIED ORGANISM Status: Acute (8) HTN (hypertension) Code(s): I10 - ESSENTIAL (PRIMARY) HYPERTENSION Status: Acute (9) Physical deconditioning Code(s): R53.81 - OTHER MALAISE Status: Acute - Plan For EGD. -: Start IS and mucinex. -: Re evaluate after EGD -: Isrraeloll add doxyxucline for atypical bacteria coverage. * .
[2018-10-12] MEDS ORDERED: guaiFENesin ER 600 MG TAB PO SCH (09:00)
--- NOTE | 2018-10-12 10:29 | CON ---
DATE OF CONSULTATION: 10/11/2018 REASON FOR CONSULTATION: Melena, anemia due to blood loss. HISTORY OF PRESENT ILLNESS: Mr. Charlie Mendieta is a very pleasant 78-year-old male who is known to me from before. The patient had an episode of SVT-atrial flutter and was cardioverted by Dr. Truong. . The patient was hospitalized a few days afterward earlier this year at [facility] because of melena, anemia due to blood loss. He underwent EGD and was found to have a very large ulcer in the proximal stomach over the gastric cardia and fundus and also a mass lesion. As he was on the anticoagulation, I could not biopsy the lesion. The anticoagulation was stopped and he returned and had a repeat EGD. The EGD showed adenocarcinoma. He subsequently had an abdominal CAT scan and also had and an endosonography to see if the surgery is possible. Unfortunately, endosonography done showed very large pancreatic mass and multiple liver metastases. It is not very clear whether he has primary or gastric cancer invading the pancreas. Ultimately, it was concluded it was probably the gastric cancer invading the pancreas and also going to liver. Initially, he wanted to go to [facility] for the opinion. Subsequently, he was asked to see Dr. Valdez to have chemotherapy. Subsequently, he had chemotherapy over the last several weeks. He has had 3 cycles of chemotherapy. A couple of days ago, he went to see Dr. Valdez and in the office he noticed fever of 103 degrees Fahrenheit. He was sent to hospital admission. The patient also found to be anemic. He has been transfused 3 units of packed RBCs. He gives history of black tarry stool off and on. The last stool was yesterday, but today he has no stool. He has no abdominal pain, no nausea, no vomiting. He had fever of 103 on admission, but now he is afebrile. Chest x-ray shows possible pneumonia. The patient at present time is awake, alert, and communicative. He denies any chest pain, abdominal pain, nausea, or vomiting. As mentioned earlier, he had one stool yesterday, but today no stool. He is also anemic. MEDICAL ILLNESS: 1. 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 2. Atrial flutter, status post cardioversion by Dr. Truong a few months ago. 3. Hip replacement. 4. Endosonography earlier this year. 5. SILVIANO by Dr. Truong. ALLERGIES: NONE. MEDICATIONS: Reviewed include; 1. Metoprolol. 2. Flecainide. 3. Ferrous sulfate. 4. Multivitamin. REVIEW OF SYSTEMS: Remarkable for melena, fever of 103 degrees Fahrenheit, he became normal afterward. He also is coughing with some mucus expectoration. PHYSICAL EXAMINATION: GENERAL: He appears very comfortable. He is awake, alert, and communicative. He appears very pale. He is in no distress. VITAL SIGNS: Afebrile. Pulse is 59, blood pressure 134/71. HEENT: Conjunctivae clear. NECK: Supple. No adenitis or thyromegaly noted. CARDIOVASCULAR: First and second heart sounds. LUNGS: Actually clear to auscultation except few rales on the left side. ABDOMEN: Soft. Abdomen is nontender. There is no organomegaly or masses. Bowel sounds are normal. EXTREMITIES: Reveal no edema. LABORATORY DATA: From today; WBC 5300, hemoglobin is 7, hematocrit 25.9, MCV 94.9, platelet count 68,000, polymorphs 53, lymphocytes 19, monocytes 19. Chemistry panel; sodium is 136, potassium 3.5, chloride 104, bicarb 26, BUN is 25, creatinine 1.22, glucose 148, calcium 7.9, magnesium 2.1. Liver function tests are normal. BNP 170. Albumin is 3.3. IMPRESSION: 1. A 78-year-old male with gastric ulcer, gastric mass diagnosed earlier this year and biopsy showed adenocarcinoma. Subsequent workup revealed he has liver metastasis and also invasion of pancreas. He had a chemotherapy and he has had 3 cycles of chemotherapy. His next cycle is due next week. He has had melena off and on. 2. Fever of 103, but no history for the last couple of days. 3. Atrial flutter status post cardioversion. I had a long talk with Anam's friend difficult really to do any specific therapy for it. However, visible vessel with bleeding can be or cauterized. He is agreeable to have this procedure. I will plan the EGD tomorrow and make further recommendation. In the meantime, I will recommend transfusion support as needed. Job ID: [id number]
[2018-10-12] MEDS: Multivit, Therapeutic 1 TAB PO SCH (10:59)
[2018-10-12] MEDS: Ferrous Sulfate 325 MG TAB PO SCH (10:59)
[2018-10-12] MEDS: Flecainide 50 MG TAB PO SCH (10:59)
[2018-10-12] MEDS: Cefepime 2 GM in Sodium Chloride 0.9% 100 ML IVPB SCH (11:09)
[2018-10-12] MEDS ORDERED: Promethazine HCl 25 MG/ML VIAL IM PRN (11:12)
[2018-10-12] MEDS ORDERED: Promethazine HCl 25 MG/ML VIAL SLOW IVP PRN (11:12)
[2018-10-12] MEDS ORDERED: Ondansetron HCl/PF 4 MG/2 ML Vial IVP PRN (11:12)
[2018-10-12 12:59] VITALS: BP 156/80; TEMP 97.7
--- NOTE | 2018-10-12 23:33 | OP ---
DATE OF PROCEDURE: 10/12/2018 OPERATIVE PROCEDURE: Esophagogastroduodenoscopy. PREOPERATIVE DIAGNOSES: A 78-year-old male with recently diagnosed gastric carcinoma of his ulcerated polyp. The patient presents with tarry stool off and on. He had been transfused 3 units so far. The patient underwent EGD to see whether lesion can be cauterized or amenable to injection of epinephrine. POSTOPERATIVE DIAGNOSES: Large ulcerated polyp and mass in fundus. No visible vessel active bleeding seen. DESCRIPTION OF PROCEDURE: The patient was placed on his left lateral position and was given sedation by Anesthesia Department. A Pentax video gastroscope under direct vision passed down the oropharynx, past the GE junction into the stomach and subsequently into the descending duodenum. There was no blood in this esophagus. In the GE junction, no pathology. The stomach is completely empty, does not show any fresh blood or any coffee ground material. the duodenum. No pathology seen in the duodenum. Retroflexion of scope in the stomach showed a large ulcerated polyp or lesion in the gastric fundus. No active bleeding seen. There is no visible vessel or any stigmata of bleeding seen. The stomach decompressed and the scope removed. RECOMMENDATION: 1. Protonix 40 once a day. 2. Transfuse as needed. Job ID: [id number]
== END 2018-10-12 16:04 | disposition home or self-care (01) | DRG 811 ==
LOC: UNDOADMIN 17:32 → ONC 17:32 → INTOOBSV 17:37 → ONC 17:37 → OBSVTOIN 20:26
PROVIDERS: ADMIT Internal Medicine; ATTEND Internal Medicine
PROC: 30233N1 Transfusion of Nonautologous Red Blood Cells into Peripheral Vein, Percutaneous Approach (ICD-10-PCS; 2018-10-09)
PROC: 0DJ08ZZ Inspection of Upper Intestinal Tract, Via Natural or Artificial Opening Endoscopic (ICD-10-PCS; principal; 2018-10-12)
DX: D50.9 Iron deficiency anemia, unspecified (principal); J18.1 Lobar pneumonia, unspecified organism; I48.92 Unspecified atrial flutter; C16.9 Malignant neoplasm of stomach, unspecified; C78.7 Secondary malignant neoplasm of liver and intrahepatic bile duct; C78.89 Secondary malignant neoplasm of other digestive organs; D69.6 Thrombocytopenia, unspecified; N18.9 Chronic kidney disease, unspecified; I12.9 Hypertensive chronic kidney disease with stage 1 through stage 4 chronic kidney disease, or unspecified chronic kidney disease; R53.81 Other malaise; K25.9 Gastric ulcer, unspecified as acute or chronic, without hemorrhage or perforation; Z96.649 Presence of unspecified artificial hip joint; Z92.21 Personal history of antineoplastic chemotherapy
CPT/HCPCS: 36415; 36430; 71046; 80048; 80053; 81001; 82274; 83735; 83880; 85025; 86301; 86850; 86870; 86900; 86901; 86905; 86922; 87040; 87070; 87205; C9113; J0692; J1642; J2916; J3490; P9016

== ENCOUNTER 2018-12-05 12:37 | Outpatient (CLI) | payer MEDICARE, BC ==
--- NOTE | 2018-12-05 15:40 | PET ---
Nuclear medicine FDG PET/CT: (Positron emission tomography and computed tomography) DATE: 12/05/2018 HISTORY: 78-year-old male with gastric carcinoma restaging COMPARISON: 08/11/2018 TECHNIQUE: IV injection of F-18 fluorodeoxyglucose (FDG) dose: 12.2 mCi. PET scan and attenuation correction CT performed from skull base to proximal thighs. FINDINGS: SUV (standard uptake values) numbers given are maximum SUVs. QCLR used. Previously, a noncalcified pulmonary nodule in anterior segment left upper lobe measuring approximate ly 1.4 x 0.6 cm with SUV of 2.6, currently measures 0.6 x 0.4 cm, with SUV of 1.1. In the left mediastinum, previously demonstrated approximately 2.7 x 2 cm prevascular space lymph nod e with SUV of 5.7, currently measures 1.8 x 1.3 cm, with SUV of 1.8. Mass at the gastric fundus enveloping the pancreatic tail is difficult to measure without IV contrast . Previous SUV was 24.2. Current SUV is 10.9. Located a short distance anterior and lateral to it, still abutting the ventral surface of the spleen , there is a soft tissue density mass that is attached to the main mass by a stalk, and is inseparable from the splenic flexure of the colon. It measures approximately 4 x 3 cm currently. Prev ious SUV was 31.3. Current SUV is 21.5. Left anterior upper quadrant peritoneal implant at peritoneal surface with previous SUV of 10.9 has c urrent SUV of 2.6. At right anterior mid abdomen, previous 9 x 3.5 cm intraperitoneal mass with SUV of 22.2 currently me asures 7 x 2.5 cm and has SUV of 12.5. Previously, a left lower quadrant mass involving sigmoid colon measuring approximately 4.5 x 3 cm, wi th previous SUV of 34.5, currently measures 4 x 3.5 cm, with SUV of 31.1. A small ill-defined focus of increased uptake abutting the left side of the rectosigmoid junction wit h previous SUV of 23.8 has current SUV of 16.7. A round 1.5 x 1.5 cm peritoneal implant near the right paracolic gutter abutting the lateral peritone al wall at previous SUV of 12.4. It is currently approximately 1 x 1 cm, with current SUV of 4.4. Previously, there were a few small foci of mildly increased uptake in the liver, higher than that of background liver activity. For example, in hepatic segment 4B abutting the falciform ligament, there was a focus 5.7 SUV. Currently, this area is the same as that of background liver activity, 2.[address] . [address] attenuation correction CT demonstrates again moderate left hydroureteronephrosis consis tent with obstructive uropathy. Splenomegaly. At least one tiny calcified gallstone. Prominent left renal cyst. IMPRESSION: 1) significant interval response to therapy. 2) the main gastric tumor, and the peritoneal metastatic masses, including the large masses, have dec reased in size and decreased in SUV. 3) the left upper lobe pulmonary nodule and the left mediastinal malignant lymphadenopathy are no lucho ibrahima hypermetabolic. 4) obstructive left uropathy with moderate left hydronephrosis, probably due to one of the masses in the left lower quadrant. 5) splenomegaly 6) cholelithiasis 7) there was probably hepatic metastasis on the previous PET scan. Those are no longer detectable..
== END 2018-12-05 12:38 | disposition home or self-care (01) ==
LOC: PET 12:37
PROVIDERS: ATTEND Internal Medicine Hematology & Oncology
DX: C16.0 Malignant neoplasm of cardia (principal); C25.2 Malignant neoplasm of tail of pancreas; K80.20 Calculus of gallbladder without cholecystitis without obstruction; R16.1 Splenomegaly, not elsewhere classified; R91.1 Solitary pulmonary nodule; C16.9 Malignant neoplasm of stomach, unspecified; C78.6 Secondary malignant neoplasm of retroperitoneum and peritoneum; N13.30 Unspecified hydronephrosis
CPT/HCPCS: 78815; A9552

== ENCOUNTER 2018-12-08 14:32 | Outpatient (CLI) | payer MEDICARE, BC | END 2018-12-08 14:33 | disposition home or self-care (01) | LOC: ULT 14:32 | PROVIDERS: ATTEND Internal Medicine Hematology & Oncology | DX: Z51.11 Encounter for antineoplastic chemotherapy (principal); C16.0 Malignant neoplasm of cardia; I08.3 Combined rheumatic disorders of mitral, aortic and tricuspid valves; Z79.899 Other long term (current) drug therapy | CPT/HCPCS: 93306 ==

== ENCOUNTER 2019-03-13 12:47 | Outpatient (CLI) | payer MEDICARE, BC ==
--- NOTE | 2019-03-13 14:01 | PET ---
PET CT SKULL TO MID THIGH: COMPARISON: PET/CT 12/05/2018. HISTORY: Malignant neoplasm of tail of pancreas, malignant neoplasm of the gastric cardia. TECHNIQUE: A PET/CT was performed from the skull to the mid thigh after administration of 12.2 millicuries of F- 18 FDG. Evaluation was performed on a [employer] workstation. FINDINGS: NECK: No areas of hypermetabolic activity. CHEST: No areas of hypermetabolic activity. ABDOMEN/PELVIS: Hypermetabolic mass of the proximal stomach is redemonstrated, with maximum SUV of 7, previously 10.9 . Ill-defined irregular soft tissue mass of this region by noncontrast CT imaging remains, with interspersed calcification, and is grossly stable in volume, although the mass is difficult to accura tely measure with discrete size parameters on the basis of this exam. Adjacent mesenteric mass, just laterally, is redemonstrated, with maximum SUV approximately 11.6, previously 21.5. There has be en interval decrease in hypermetabolic activity within mesenteric mass of the anterior right abdomen 1.5. This has decreased in size, where previously it measured at 9 cm now measures 5.6 cm. No dule related to metastasis of the right lower abdomen, laterally, previously measured at 1.5 cm measures approximately 1.1 cm. Finding is not currently hypermetabolic. SKELETON: Widespread scintigraphic uptake throughout the osseous structures is present. This could relate to re sponse to therapy and does limit evaluation of the osseous structures. CT images used for attenuation correction show scattered nonspecific pulmonary parenchymal opacities, primarily interstitial in configuration. There are redemonstrated remote, multiple right rib deformities, posterolaterally. Prior nodule of the medial left upper lobe has nearly resolved with mi nimal residua. Previously mentioned left prevascular space lymph node has also decreased in volume without hypermetabolic activity.. IMPRESSION: 1. Interval response to therapy with regard to gastric mass and scattered peritoneal metastases. 2. Diffuse scintigraphic uptake of the osseous structures which may relate to response to chemothera py. 3. Interval decrease in size of left upper lobe pulmonary nodule and prevascular lymph node. Transcribed Date/Time: 03/13/2019 2:10 PM
== END 2019-03-13 12:48 | disposition home or self-care (01) ==
LOC: PET 12:47
PROVIDERS: ATTEND Internal Medicine Hematology & Oncology
DX: C16.0 Malignant neoplasm of cardia (principal); K86.89 Other specified diseases of pancreas; C78.6 Secondary malignant neoplasm of retroperitoneum and peritoneum; K31.89 Other diseases of stomach and duodenum; R91.1 Solitary pulmonary nodule
CPT/HCPCS: 78815; A9552

== ENCOUNTER 2019-03-22 12:17 | Outpatient (CLI) | payer MEDICARE, BC | END 2019-03-22 12:18 | disposition home or self-care (01) | LOC: ULT 12:17 | PROVIDERS: ATTEND Internal Medicine Hematology & Oncology | DX: Z51.11 Encounter for antineoplastic chemotherapy (principal); C16.0 Malignant neoplasm of cardia; C25.2 Malignant neoplasm of tail of pancreas; Z79.899 Other long term (current) drug therapy; I08.8 Other rheumatic multiple valve diseases | CPT/HCPCS: 93306 ==

== ENCOUNTER 2019-05-19 00:52 | Inpatient (IN) | payer MEDICARE, BC ==
[2019-05-19 01:24] VITALS: BMI 24.6
[2019-05-19 02:36] LABS: INR-International Normal Ratio 1.3; PTT 37.5 SEC (22.9-36.1); Prothrombin Time 15.9 SEC (12.0-14.7)
[2019-05-19 02:43] LABS: Lactic Acid 1.1 mmol/L (0.5-2.2)
[2019-05-19 02:49] LABS: ALT (SGPT) 13 U/L (8-55); AST (SGOT) 20 U/L (5-34); Albumin 2.5 g/dL (3.4-4.8); Alkaline Phosphatase 129 U/L (40-110); Anion Gap 9 mmol/L (10-20); BUN (Urea Nitrogen) 27 mg/dL (8.4-25.7); Bilirubin, Direct 0.3 mg/dL (0.1-0.3); Bilirubin, Total 0.5 mg/dL (0.2-1.2); Calc. Creatinine Clearance 59 mL/min (70-130); Calcium 7.3 mg/dL (7.8-10.44); Carbon Dioxide 30 mmol/L (23-31); Chloride 100 mmol/L (98-107); Estimated GFR-MDRD 52; Glucose 118 mg/dL (83-110); Magnesium 1.8 mg/dL (1.6-2.6); Phosphorus 2.3 mg/dL (2.3-4.7); Potassium 3.2 mmol/L (3.5-5.1); Protein, Total 4.9 g/dL (5.8-8.1); Sodium 136 mmol/L (136-145)
[2019-05-19 02:52] LABS: Anisocytosis SLIGHT = 6-15 cells (100X) (0-5/hpf); Band 5 % (5-11); Eosinophils 1 % (0-10); Hemoglobin 7.1 g/dL (14.0-18.0); Lymphocytes 18 % (21-51); MDiff Complete? YES; Macrocytosis SLIGHT = 6-15 cells (100X) (0-5/hpf); Mean Platelet Volume 7.4 fL (7.4-10.4); Monocytes 29 % (0-10); Neutrophil 47 % (42-75); Platelet Count 84 thou/uL (130-400); Platelet Morphology Comment Appears Decreased; RBC Distribution Width 14.3 % (11.5-14.5); Red Blood Cell (RBC) Count 1.93 mill/uL (4.70-6.10); White Blood Cell (WBC) Count 6.4 thou/uL (4.8-10.8)
[2019-05-19 03:03] LABS: Troponin I 0.014 ng/mL (< 0.028)
[2019-05-19 06:49] LABS: Bacteria/HPF None Seen HPF (None Seen); Bilirubin Negative (Negative); Blood, Urine Trace (Negative); Clarity Clear (Clear); Glucose, Urine (Dipstick) Normal (Negative); Leukocyte Negative Leu/uL (Negative); Nitrite Negative (Negative); Protein, Urine (Dipstick) Negative (Neg-Trace); Squamous Epithelial None Seen HPF (0-3); Urobilinogen Normal mg/dL (Less than 2); WBC/HPF 0-3 HPF (0-3)
[2019-05-19 06:52] LABS: Urine Culture Reflex No No
[2019-05-19] MEDS ORDERED: Senokot S 8.6-50 MG TAB PO PRN (07:27)
[2019-05-19] MEDS ORDERED: Ondansetron PF 4 MG/2 ML Vial IVP PRN (07:27)
[2019-05-19] MEDS ORDERED: Acetaminophen 325 MG TAB PO PRN (07:27)
[2019-05-19] MEDS ORDERED: Sodium Chloride 0.9% 1,000 ML IV SCH (07:30)
--- NOTE | 2019-05-19 07:59 | RAD ---
EXAM: Single view of the chest HISTORY: Sepsis COMPARISON: 10/09/2018 FINDINGS: Single view of the chest shows a normal sized cardiomediastinal silhouette. The Mediport i s unchanged in position. Atelectasis is seen in the lung bases. There is no evidence of consolidation, mass, or pleural effusion. The bones are unremarkable. IMPRESSION: No evidence of acute cardiopulmonary disease
[2019-05-19] MEDS: Famotidine/PF 20 mg/2ml Vial SLOW IVP SCH ×2 (08:52→20:48)
[2019-05-19] MEDS: Ferrous Sulfate 325 MG TAB PO SCH ×2 (08:53→16:00)
[2019-05-19] MEDS ORDERED: Saccharomyces boulardii 250 MG CAP PO SCH (09:00)
[2019-05-19] MEDS ORDERED: Cefepime 1 GM in Sodium Chloride 0.9% 100 ML IVPB SCH (09:00)
[2019-05-19] MEDS ORDERED: Flecainide 50 MG TAB PO SCH (09:45)
--- NOTE | 2019-05-19 10:43 | RAD ---
EXAM: 3 views of the left ankle HISTORY: Ankle pain COMPARISON: None FINDINGS: 3 views of the left ankle shows no evidence of acute fracture or dislocation. Moderate late ral soft tissue swelling is seen. No degenerative changes are present. IMPRESSION: No evidence of acute osseous abnormality. Because of bony demineralization, if the patien t has persistent pain, a repeat radiograph in 7 days may be indicated. This examination was reviewed with Dr. Linn who agrees with the findings and impression.
[2019-05-19 11:40] LABS: Band 9 % (5-11); Eosinophils 1 % (0-10); Hemoglobin 7.3 g/dL (14.0-18.0); Hypersemented Neutrophil SLIGHT; Lymphocytes 20 % (21-51); MDiff Complete? YES; Macrocytosis SLIGHT = 6-15 cells (100X) (0-5/hpf); Mean Corpuscular HGB CONC 32.7 g/dL (32.0-36.0); Mean Corpuscular Hemoglobin 36.7 pg (27.0-31.0); Mean Platelet Volume 7.6 fL (7.4-10.4); Monocytes 11 % (0-10); Neutrophil 59 % (42-75); Platelet Count 86 thou/uL (130-400); Platelet Morphology Comment Appears Decreased; Polychromasia SLIGHT = 2-3 cells (100X) (0-2/hpf); RBC Distribution Width 14.2 % (11.5-14.5); Red Blood Cell (RBC) Count 1.98 mill/uL (4.70-6.10); White Blood Cell (WBC) Count 5.4 thou/uL (4.8-10.8)
--- NOTE | 2019-05-19 11:45 | ULT ---
Bilateral lower extremity venous duplex exam: HISTORY: Bilateral leg pain and swelling. COMPARISON: None. FINDINGS: Real-time color Doppler evaluation of the right and left lower extremities were performed f rom groin to calf. This includes evaluation the common femoral superficial and profunda femoral saphenous popliteal and posterior tibial veins. This shows patent deep venous systems bilaterally wit h normal compressibility and augmentation. Incidental note is made of soft tissue edema change and a right-sided Orona's cyst. IMPRESSION: No evidence of DVT of either lower extremity.
[2019-05-19] MEDS ORDERED: Potassium Chloride 20 MEQ TAB PO SCH (15:00)
--- NOTE | 2019-05-19 17:08 | HP ---
CHIEF COMPLAINT: Fall. HISTORY OF PRESENT ILLNESS: The patient is a 79-year-old male, who recently earlier this year was diagnosed with gastric cancer, undergoing chemotherapy. The patient presented to the hospital with multiple falls. The patient stated that he finished his chemotherapy about a couple of weeks ago and since then he has been feeling very tired. 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 He did not hit his head. The patient stated that on , he also had another fall. However, this was again a mechanical fall. The patient stated that on Tuesday he tried to sit on his chair, where the chair went backwards and the patient fell on his left side. The patient denied any losing of any consciousness. He denies any dizziness or lightheadedness. The patient does state that his left ankle is more swollen than the right and his left ankle has always given him more trouble than the right. The patient denies any shortness of breath, any fevers or chills, any chest pain or chest tightness. The patient was then brought into the hospital for possible concerns of some low-grade fever. However, he currently denies any symptoms of cough, diarrhea, abdominal pain, nausea, vomiting, chest pain, or shortness of breath. In the ER, this was [place] [facility], urine appeared clear. His chest x-ray was normal. He did not have any leukocytosis. The only thing that was abnormal was his hemoglobin was 7. The patient was admitted here for further evaluation. PAST MEDICAL HISTORY: As of the following; 1. Diagnosis of gastric cancer. 2. History of aflutter, currently on flecainide. 3. GERD. FAMILY HISTORY: No history of heart disease or cancer. SOCIAL HISTORY: He lives with his family. No alcohol use, drug use, or smoking history. He is a full code. PAST SURGICAL HISTORY: He had hip replacement, SILVIANO also done. ALLERGIES: NO KNOWN DRUG ALLERGIES. MEDICATIONS: He takes; 1. Metoprolol 1-/2, that is 37.5 mg daily. 2. Flecainide. 3. Iron. 4. Multivitamin. 5. Protonix. PHYSICAL EXAMINATION: VITAL SIGNS: As of the following; temperature of 99.0, pulse 73, respirations 18, oxygen saturation 95% on room air, and blood pressure 112/68. GENERAL: He is awake, alert, and oriented x3. Does not appear in any distress. HEENT: Normocephalic, atraumatic. Pupils are equal and reactive to light. NECK: No lymphadenopathy noted. CARDIOVASCULAR: S1 and S2 present. No murmurs, rubs, or gallops. LUNGS: Clear to auscultation. No rhonchi or wheezes noted. ABDOMEN: Soft and nontender. Bowel sounds are present x2. EXTREMITIES: He does have +2 lower extremity edema, left foot looks greater than right. He does have significant lower extremity swelling. NEUROVASCULAR: There are no focal deficits noted. LABORATORY RESULTS: WBCs of 5.4, hemoglobin of 7.3, his MCV is 112, and platelets of 86. Chemistry; sodium of 136, potassium of 3.2, BUN of 27, and creatinine of 1.33. He has mildly elevated alkaline phosphatase and lactate dehydrogenase. Urine as I mentioned from earlier was normal. He did have a chest x-ray, which did not show any acute abnormalities. ASSESSMENT AND PLAN: The patient is a 79-year-old male, who presents to the hospital with falls. 1. Generalized weakness. The patient's fall risk is multifactorial. His H and H are really low. He also has significant edema to his bilateral lower extremity and he is recently on chemotherapy. The patient states that he has been having some tingling sensation to his bilateral hands, which is most likely the side effect of chemotherapy. I will get Physical Therapy to evaluate him. His blood pressure also has been on the lower side. Even in [place] [facility], his blood pressure systolic was in the high 90s. I will continue his flecainide, however, I will stop his metoprolol for now. Also, if his H and H drops less than 7, may transfuse him 1 unit of PRBCs. I might even transfuse him if it is less than 7.5. We will watch him overnight. The patient currently would not be able to go to inpatient rehab because that would stop his chemotherapy and he wants to continue with the chemotherapy. The patient stated the last time that he fell, he did injure his left rotator cuff and is going to request surgery; however, everything is on hold since the patient first needs to finish his chemotherapy. I have also encouraged him to eat more protein, which he has not been doing much. The patient also has lost significant amount of weight, which most likely is contributing to this weakness and balancing issue, especially if his blood pressure is low. I will again discontinue the metoprolol for now. He did have an echocardiogram on 03/22, which indicated an ejection fraction of 45% to 50% with mild enlargement of the right atrium. 2. Gastric cancer. The patient to continue chemotherapy. 3. Anemia, appears to be macrocytic. I will transfuse him 1 unit of PRBCs. 4. Lower extremity swelling. I will get a venous Doppler and also x-ray of the left ankle. I may give him some diuretics and I have also recommended if the venous Dopplers are negative, I will recommend to use compression stockings. 5. Chronic kidney disease, stage 3. We will continue to monitor. This is his baseline. 6. Hypokalemia. We will replace potassium. Job ID: [id number]
[2019-05-19] MEDS: Flecainide 50 MG TAB PO SCH (20:48)
[2019-05-20 05:01] LABS: Anion Gap 8 mmol/L (10-20); BUN (Urea Nitrogen) 24 mg/dL (8.4-25.7); Calc. Creatinine Clearance 65 mL/min (70-130); Calcium 7.4 mg/dL (7.8-10.44); Carbon Dioxide 30 mmol/L (23-31); Chloride 101 mmol/L (98-107); Estimated GFR-MDRD 58; Glucose 97 mg/dL (83-110); Potassium 3.9 mmol/L (3.5-5.1); Sodium 135 mmol/L (136-145)
[2019-05-20 05:34] LABS: Band 7 % (5-11); Eosinophils 1 % (0-10); Lymphocytes 24 % (21-51); MDiff Complete? YES; Macrocytosis SLIGHT = 6-15 cells (100X) (0-5/hpf); Mean Corpuscular HGB CONC 32.3 g/dL (32.0-36.0); Mean Corpuscular Hemoglobin 36.4 pg (27.0-31.0); Mean Platelet Volume 7.7 fL (7.4-10.4); Monocytes 17 % (0-10); Neutrophil 50 % (42-75); Platelet Count 86 thou/uL (130-400); Platelet Morphology Comment Appears Decreased; Polychromasia SLIGHT = 2-3 cells (100X) (0-2/hpf); RBC Distribution Width 14.3 % (11.5-14.5); Reactive Lymphocytes 1 % (0-10); Red Blood Cell (RBC) Count 1.93 mill/uL (4.70-6.10); White Blood Cell (WBC) Count 5.2 thou/uL (4.8-10.8)
[2019-05-20] MEDS ORDERED: Furosemide 40 MG/4 ML VIAL SLOW IVP SCH (09:00)
[2019-05-20] MEDS: Flecainide 50 MG TAB PO SCH ×2 (10:01→20:17)
[2019-05-20] MEDS: Ferrous Sulfate 325 MG TAB PO SCH ×2 (10:01→17:59)
[2019-05-20] MEDS: Famotidine/PF 20 mg/2ml Vial SLOW IVP SCH ×2 (10:01→20:17)
[2019-05-20] MEDS: Multivitamin W/ Minerals 1 TAB PO SCH (10:02)
--- NOTE | 2019-05-20 19:25 | PDOC.HOSPP ---
- Subjective Encounter Date: 05/20/19 Encounter Time: 09:00 Subjective: pt up in bed no complains - Objective Vital Signs & Weight: Vital Signs (12 hours) Temp Pulse Pulse Pulse Resp BP BP 05/20/19 16:00 98.2 F 86 16 05/20/19 11:20 76 94 115/75 116/93 H 05/20/19 08:35 BP Pulse Ox 05/20/19 16:00 154/67 H 96 05/20/19 11:20 05/20/19 08:35 95 Weight Admit Weight 202 lb 4.8 oz Weight 203 lb 4.8 oz I&O: 05/19/19 05/20/19 05/21/19 06:59 06:59 06:59 Intake Total 0 Output Total 600 Balance -600 0 Result Diagrams: 05/20/19 04:00 05/20/19 04:00 Hospitalist ROS - Review of Systems Cardiovascular: denies: chest pain, palpitations, orthopnea, paroxysmal noc. dyspnea, edema, light headedness, other Gastrointestinal: denies: nausea, vomiting, abdominal pain, diarrhea, constipation, melena, hematochezia, other Genitourinary: denies: dysuria, frequency, incontinence, hematuria, retention, other - Medication Medications: Active Medications Generic Name Dose Route Start Last Admin Trade Name Jovanni PRN Reason Stop Dose Admin Famotidine 20 mg 05/19/19 09:00 05/20/19 10:01 Pepcid SLOW IVP 20 mg Q12HR LINDA Administration Ferrous Sulfate 325 mg 05/19/19 08:00 05/20/19 17:59 Feosol PO 325 mg BID-WM LINDA Administration Flecainide Acetate 50 mg 05/19/19 21:00 05/20/19 10:01 Tambocor PO 50 mg Q12HR LINDA Administration Iron/Minerals/Multivitamins 1 tab 05/20/19 09:00 05/20/19 10:02 Theragran M PO 1 tab DAILY LINDA Administration Pantoprazole Sodium 40 mg 05/19/19 09:00 05/20/19 10:02 Protonix PO 40 mg DAILY LINDA Administration Sodium Chloride 10 ml 05/19/19 09:00 05/20/19 10:02 Flush - Normal Saline IVF 10 ml Q12HR LINDA Administration - Exam Heart: negative: RRR, no murmur, no gallops, no rubs, normal peripheral pulses, irregular, diminshed peripheral pulses, murmur present, II/IV, III/IV Respiratory: negative: CTAB, no wheezes, no rales, no ronchi, normal chest expansion, no tachypnea, normal percussion, rales, rhonchi, tachypneic, wheezes Gastrointestinal: negative: soft, non-tender, non-distended, normal bowel sounds , no palpable masses, no hepatomegaly, no splenomegaly, no bruit, no guarding, no rigidity, tender to palpation, distended, diminished bowl sounds, voluntary guarding Hosp A/P (1) Generalized weakness Code(s): R53.1 - WEAKNESS Status: Acute (2) Anemia Code(s): D64.9 - ANEMIA, UNSPECIFIED Status: Acute (3) HTN (hypertension) Code(s): I10 - ESSENTIAL (PRIMARY) HYPERTENSION Status: Acute (4) Physical deconditioning Code(s): R53.81 - OTHER MALAISE Status: Acute - Plan will transfuse one unit of blood. will also give him lasix. PT to work with pt. possible discharge in am. currently in SR. no fever overnight.
[2019-05-21 05:11] LABS: Anion Gap 11 mmol/L (10-20); BUN (Urea Nitrogen) 25 mg/dL (8.4-25.7); Calc. Creatinine Clearance 60 mL/min (70-130); Calcium 7.6 mg/dL (7.8-10.44); Carbon Dioxide 27 mmol/L (23-31); Chloride 101 mmol/L (98-107); Estimated GFR-MDRD 52; Glucose 109 mg/dL (83-110); Potassium 3.4 mmol/L (3.5-5.1); Sodium 136 mmol/L (136-145)
[2019-05-21 06:17] LABS: Anisocytosis SLIGHT = 6-15 cells (100X) (0-5/hpf); Band 5 % (5-11); Eosinophils 1 % (0-10); Lymphocytes 11 % (21-51); MDiff Complete? YES; Mean Corpuscular HGB CONC 32.9 g/dL (32.0-36.0); Mean Corpuscular Hemoglobin 35.9 pg (27.0-31.0); Mean Platelet Volume 8.1 fL (7.4-10.4); Monocytes 18 % (0-10); Neutrophil 65 % (42-75); Platelet Count 89 thou/uL (130-400); Platelet Morphology Comment Appears Decreased; RBC Distribution Width 15.9 % (11.5-14.5); Red Blood Cell (RBC) Count 2.21 mill/uL (4.70-6.10); White Blood Cell (WBC) Count 4.9 thou/uL (4.8-10.8)
[2019-05-21 08:06] VITALS: BP 111/72; TEMP 97.8
[2019-05-21] MEDS ORDERED: Furosemide 40 MG/4 ML VIAL SLOW IVP SCH (09:00)
[2019-05-21] MEDS: Ferrous Sulfate 325 MG TAB PO SCH (09:12)
[2019-05-21] MEDS: Flecainide 50 MG TAB PO SCH (09:12)
[2019-05-21] MEDS: Multivitamin W/ Minerals 1 TAB PO SCH (09:12)
[2019-05-21] MEDS: Famotidine/PF 20 mg/2ml Vial SLOW IVP SCH (09:12)
[2019-05-21] MEDS ORDERED: Potassium Chloride 20 MEQ TAB PO SCH (09:15)
--- NOTE | 2019-05-22 02:33 | DIS ---
DATE OF ADMISSION: 05/19/2019 DATE OF DISCHARGE: 05/21/2019 DISCHARGE DIAGNOSES: 1. Generalized weakness. 2. Anemia, most likely secondary to his underlying malignancy. 3. Multiple falls. 4. Hypertension. 5. Physical deconditioning. HOSPITAL COURSE: The patient is a 79-year-old male, who initially presented to the hospital after multiple falls. A couple of them were mechanical. The patient has noticed that after his chemotherapy, he has become severely weak. The patient also was found to have an H and H of 7 to 7.3. At this time, he was transfused 1 unit of PRBC. The patient also had some swelling to his lower extremities at which venous Doppler was done, which was negative. He also had an ankle x-ray, which was stable. Just had some swelling. The patient was evaluated by PT and recommended outpatient with PT, which patient already has. The patient is going to be discharged home today. He does have an appointment with Oncology at 10:30 and he will make it to that appointment. The patient had some concerns in regard to the chemotherapy causing him to have more weakness. HOME MEDICATIONS: Will be as of the following. He is going to be on: 1. Pantoprazole 40 mg daily. 2. Tylenol 650 as needed. 3. Flecainide one tab p.o. daily. 4. Metoprolol 0.5 p.o. daily. 5. Multivitamin one p.o. daily. 6. Furosemide 1 tab p.o. daily. His generalized weakness and falls were attributed to multifactorial probably to anemia, also to significant lower extremity edema and also to his mild deconditioning from chemotherapy. The patient also has not been eating very much. I have encouraged him to do so and I also have asked him to restrict his fluids to at least 1.2 to 1.5 L a day. PHYSICAL EXAMINATION: VITAL SIGNS: Temperature of 97.8, 92, 16, 96% on room air, 111/72. GENERAL: He is awake, alert, and oriented x3. Does not appear in distress. CV: S1, S2 present. No murmurs, rubs, or gallops. ABDOMEN: Soft and nontender. Bowel sounds are present x2. Again, he will be discharged home. Follow up with his primary and oncologist. Job ID: [id number]
--- NOTE | 2019-05-23 05:33 | PQF ---
SAP Informatics Specialist Crystal Reports Winform BELEN Mayfield KYLE LEGGETT [id number] [facility]295 [id number] CLINICAL DOCUMENTATION CLARIFICATION FORM: POST DISCHARGE Addendum to original discharge summary date: ____ Late entry note date: __ DATE: 05/23/2019 ATTN: KYLE LEGGETT Please exercise your independent, professional judgment in responding to the clarification form. Clinical indicators are provided on the bottom of this form for your review Please check appropriate box(s): Kindly Provide etiology of weakness [ ] Weakness due to Anemia 2/2 malignancy [ x ] Weakness due to adverse effect of Chemotherapy/ anemia and malignancy [ ] Other diagnosis [ ] Unable to determine In addition, please specify: Present on Admission (POA): [ x] Yes [ ] No [ ] Unable to determine For continuity of documentation, please document condition throughout progress notes and discharge summary. Thank You. CLINICAL INDICATORS - SIGNS / SYMPTOMS / LABS Generalized weakness - Documented in H&P on 05/19 by KYLE LEGGETT H&H are really low - Documented in H&P on 05/19 by KYLE LEGGETT He Recently on chemotherapy - Documented in H&P on 05/19 by KYLE LEGGETT Tingling sensation to his bilateral hands, which is most likely side effect of chemotherapy - Documented in H&P on 05/19 by KYLE LEGGETT HGB 7.1 and HCT 21.6 on 05/19 - Documented in Laboratory results Anemia most likely 2/2 malignancy - Documented in DS on 05/21 by KYLE LEGGETT Mild deconditioning from chemotherapy - Documented in DS on 05/21 by KYLE LEGGETT RISK FACTORS Gastric cancer - Documented in H&P on 05/19 by KYLE LEGGETT Multiple falls HTN TREATMENTS: Blood transfusion PT/OT SAP Informatics Specialist Crystal Reports Winform Viewer (This form is maintained as a part of the permanent medical record) 2014 [employer]. All Rights Reserved [email or web address] [not provided] MTDD
--- NOTE | 2019-05-23 05:43 | PQF ---
SAP Boat Joiner Helper Crystal Reports Winform ViewerBELEN HOPE KYLE LEGGETT [id number] [id number] CLINICAL DOCUMENTATION CLARIFICATION FORM: POST DISCHARGE Addendum to original discharge summary date: ____ Late entry note date: __ DATE: 05/23/2019 ATTN:KYLE LEGGETT Please exercise your independent, professional judgment in responding to the clarification form. Clinical indicators are provided on the bottom of this form for your review Please check appropriate box(s): Weakness Etiology [x ] Weakness due to Anemia 2/2 malignancy [ x ] Weakness due to adverse effect of Chemotherapy [ ] Other diagnosis [ ] Unable to determine In addition, please specify: Present on Admission (POA): [x ] Yes [ ] No [ ] Unable to determine For continuity of documentation, please document condition throughout progress notes and discharge summary. Thank You. CLINICAL INDICATORS - SIGNS / SYMPTOMS / LABS H&H are very low- Documented in H&P on 05/19 by KYLE LEGGETT Patient having tingling sensation to his bilateral hands which is most likely side effect of Chemotherapy - Documented in H&P on 05/19 by KYLE LEGGETT HGB 7.1 & HCT 21.6 on 05/19 - Documented in Laboratory Anemia 2/2 malignancy - Documented in DS on 05/21 by KYLE LEGGETT Physical deconditioning from chemotherapy - Documented in DS on 05/21 by KYLE LEGGETT Generalized weakness and falls were attributed to multifactorial probably to anemia also significant lower extremity edema - Documented in DS on 05/21 by KYLE LEGGETT RISK FACTORS Gastric cancer - adverse effect of Chemotherapy HTN CKD 3 TREATMENTS: Blood transfusion PT/OT SAP Boat Joiner Helper Crystal Reports Winform Viewer (This form is maintained as a part of the permanent medical record) 2014 [employer]. All Rights Reserved [email or web address] [not provided] MTDD
--- NOTE | 2019-05-23 21:17 | PQF ---
SAP Loan Processing Supervisor Crystal Reports Winform BELEN Mayfield KYLE LEGGETT [id number] [facility] [id number] CLINICAL DOCUMENTATION CLARIFICATION FORM: POST DISCHARGE Addendum to original discharge summary date: ____ Late entry note date: __ Date: 05/23/2019 ATTN: KYLE LEGGETT Please exercise your independent, professional judgment in responding to the clarification form. Clinical indicators are provided on the bottom of this form for your review Please check appropriate box(s): [ ] Protein Calorie Malnutrition: [ ] Mild [ x] Moderate [ ] Severe [ ] Other Malnutrition (please specify) __ [ ] Underweight without malnutrition [ ] Cachexia [ ] Other diagnosis [ ] Unable to determine In addition, please specify: Present on Admission (POA): [ x ] Yes [ ] No [ ] Unable to determine CLINICAL INDICATORS - SIGNS / SYMPTOMS / LABS BMI of __24.8_ lost significant amount of weight which is most likely contributing to this weakness and balancing issue - Documented in H&P on 05/19 by KYLE LEGGETT Anemia appears to be macrocytic -Documented in H&P on 05/19 by KYLE LEGGETT Hypokalemia -Documented in H&P on 05/19 by KYLE LEGGETT Albumin level 2.5 on 05/19 - Documented in Laboratory Anemia most likely 2/2 underlying malignancy -- Documented in DS on 05/21 by KYLE LEGGETT The patient also not eating very much - Documented in DS on 05/21 by KYLE LEGGETT RISK FACTORS Gastric cancer on chemotherapy - Documented in H&P on 05/19 by KYLE LEGGETT HTN CKD 3 TREATMENT: Blood transfusion I have encouraged him to do so and I also have asked him to restrict fluids to atleast 1.2 to 1.5 L day - Documented in DS on 05/21 by KYLE LEGGETT Moderate Malnutrition (in acute illness) Energy Intake: <75% of estimated energy requirement for > 7 days SAP Loan Processing Supervisor Crystal Reports Winform ViewerWeight Loss: 1-2%/1 week; 5%/ 1 month; 7.5%/3 months Other: mild body fat loss; mild muscle mass loss; mild fluid accumulation; Severe Malnutrition (in acute illness) Energy Intake: < 50% of estimated energy requirement for > 5 days Weight Loss: >1-2%/1 week; >5%/1 month; >7.5%/3 months Other: moderate body fat loss; moderate muscle mass loss; moderate- severe fluid accumulation; measurably reduced it auditor strength Moderate Malnutrition (in chronic illness) Energy Intake: <75% of estimated energy requirement for >1 month Weight Loss: 5%/1 month; 7.5%/3 months; 10%/6 months; 20%/1 year Other: mild body fat loss; mild muscle mass loss; mild fluid accumulation Severe Malnutrition (in chronic illness) Energy Intake: <75% of estimated energy requirement for >1 month Weight Loss: >5%/1 month; >7.5%/3 months; >10%/6 months; >20%/1 year Other: severe body fat loss; severe muscle mass loss; severe fluid accumulation ; measurably reduced it auditor strength (This form is maintained as a part of the permanent medical record) 2014 [employer]. All Rights Reserved [email or web address] [not provided] MTDD
== END 2019-05-21 10:35 | disposition home or self-care (01) | DRG 375 ==
LOC: 2NO 00:52
PROVIDERS: ADMIT Internal Medicine; ATTEND Internal Medicine
PROC: 30233N1 Transfusion of Nonautologous Red Blood Cells into Peripheral Vein, Percutaneous Approach (ICD-10-PCS; principal; 2019-05-20)
DX: C16.9 Malignant neoplasm of stomach, unspecified (principal); E44.0 Moderate protein-calorie malnutrition; R53.1 Weakness; D63.0 Anemia in neoplastic disease; K21.9 Gastro-esophageal reflux disease without esophagitis; Z96.649 Presence of unspecified artificial hip joint; E87.6 Hypokalemia; N18.3 Chronic kidney disease, stage 3 (moderate); I12.9 Hypertensive chronic kidney disease with stage 1 through stage 4 chronic kidney disease, or unspecified chronic kidney disease; R53.81 Other malaise; D64.9 Anemia, unspecified; Z79.899 Other long term (current) drug therapy
CPT/HCPCS: 36415; 36430; 71045; 80048; 80076; 81001; 83605; 83735; 84100; 84484; 85025; 85610; 85730; 86850; 86870; 86900; 86901; 86922; 87040; 93970; J0692; J1940; J3490; P9016; S0028

== ENCOUNTER 2019-05-24 10:53 | Emergency (ER) | payer MEDICARE, BC ==
[2019-05-24 11:45] LABS: Bilirubin Negative (Negative); Blood, Urine Negative (Negative); Clarity Clear (Clear); Glucose, Urine (Dipstick) Normal (Negative); Leukocyte Negative Leu/uL (Negative); Nitrite Negative (Negative); Protein, Urine (Dipstick) Negative (Neg-Trace); Urobilinogen Normal mg/dL (Less than 2)
[2019-05-24 11:48] LABS: Hemoglobin 9.4 g/dL (14.0-18.0); Mean Corpuscular HGB CONC 32.5 g/dL (32.0-36.0); Mean Corpuscular Hemoglobin 35.5 pg (27.0-31.0); Mean Platelet Volume 7.6 fL (7.4-10.4); Platelet Count 111 thou/uL (130-400); RBC Distribution Width 15.1 % (11.5-14.5); Red Blood Cell (RBC) Count 2.66 mill/uL (4.70-6.10); White Blood Cell (WBC) Count 6.5 thou/uL (4.8-10.8)
[2019-05-24 11:51] LABS: INR-International Normal Ratio 1.2; PTT 31.3 SEC (22.9-36.1); Prothrombin Time 15.2 SEC (12.0-14.7)
[2019-05-24 12:06] LABS: Band 3 % (5-11); Lymphocytes 22 % (21-51); MDiff Complete? YES; Monocytes 16 % (0-10); Neutrophil 58 % (42-75); Platelet Morphology Comment Appears Decreased; RBC Morphology Normal; Reactive Lymphocytes 1 % (0-10)
[2019-05-24 12:16] LABS: ALT (SGPT) 24 U/L (8-55); AST (SGOT) 44 U/L (5-34); Albumin 2.9 g/dL (3.4-4.8); Alkaline Phosphatase 191 U/L (40-110); Anion Gap 9 mmol/L (10-20); BUN (Urea Nitrogen) 18 mg/dL (8.4-25.7); Bilirubin, Total 0.6 mg/dL (0.2-1.2); Calc. Creatinine Clearance 0 mL/min (70-130); Calcium 8.3 mg/dL (7.8-10.44); Carbon Dioxide 32 mmol/L (23-31); Chloride 97 mmol/L (98-107); Estimated GFR-MDRD 53; Globulin 3.1 g/dL (2.4-3.5); Glucose 106 mg/dL (83-110); Potassium 3.9 mmol/L (3.5-5.1); Sodium 134 mmol/L (136-145)
== END 2019-05-24 13:55 | disposition home or self-care (01) ==
LOC: ERS 10:53
DX: K92.2 Gastrointestinal hemorrhage, unspecified (principal); I47.1 Supraventricular tachycardia
CPT/HCPCS: 36415; 80053; 81003; 82274; 85025; 85610; 85730; 86850; 86900; 86901; 86922; 99284

== ENCOUNTER 2019-06-07 12:02 | Outpatient (CLI) | payer MEDICARE, BC ==
--- NOTE | 2019-06-07 13:45 | PET ---
"PRELIMINARY REPORT" PET CT SKULL TO MID THIGH: COMPARISON: 03/13/[address] HISTORY: Pancreatic and gastric cancer. TECHNIQUE: A PET/CT was performed from the skull to the mid thigh after administration of 12.2 millicuries of F- 18 FDG. Evaluation was performed on a [employer] workstation. FINDINGS: NECK: No areas of hypermetabolic activity. CHEST: Focal area of mild hypermetabolic activity of the superior right lung with SUV of [address] attenuation, a discrete nodule is not seen within this region, and this does overlie a traversing pulmonary vessel. There are numerous groundglass opacities throughout each lung and theref ore a component of infectious or inflammatory process cannot be excluded. Underlying neoplastic nodularity is also difficult to entirely exclude. ABDOMEN/PELVIS: Redemonstration of hypermetabolic mass of the proximal stomach, with SUV maximum of 18. Ill-defined, heterogeneous soft tissue mass of this region of the left upper quadrant remains. The region of this mass abuts the posterior body and region of tail of the pancreas. Adjacent hypermetabolic mass o f the left upper abdomen, anterior to the spleen has increased in metabolic activity, approximately 16.5. There is abnormal thickening of bowel involving the abdomen, most notable within the upper cent ral and right abdomen, nonspecific. Scattered mesenteric infiltration and ascites noted. There is hypermetabolic activity of the pelvis, also localizing to prominent thickening of the sigmoid colon, with SUV maximum, greater than 20. SKELETON: No areas of hypermetabolic activity. IMPRESSION: 1. Interval increase of SUV involving multifocal malignancy of the left upper abdomen. 2. Multifocal colonic wall inflammation with hypermetabolic activity, which could relate to a superi mposed colitis, given multifocality. Correlate clinically, as underlying, superimposed neoplasm cannot be excluded. 3. Small area of mild increased, hypermetabolic activity of the right upper lung, as above, without a well-formed underlying parenchymal nodule; however, this is superimposed upon multifocal abnormal parenchymal opacities. Therefore continued follow-up with CT thorax is recommended for continued asse ssment. Transcribed Date/Time: 06/07/2019 2:34 PM
== END 2019-06-07 12:03 | disposition home or self-care (01) ==
LOC: PET 12:02
PROVIDERS: ATTEND Internal Medicine Hematology & Oncology
DX: C16.9 Malignant neoplasm of stomach, unspecified (principal); C25.9 Malignant neoplasm of pancreas, unspecified; K63.89 Other specified diseases of intestine; R91.8 Other nonspecific abnormal finding of lung field
CPT/HCPCS: 78815; A9552

== ENCOUNTER 2019-06-17 00:26 | Inpatient (IN) | payer MEDICARE, BC ==
[2019-06-17] MEDS ORDERED: Acetaminophen 650 MG Suppository PR PRN (01:53)
[2019-06-17] MEDS ORDERED: Acetaminophen 325 MG TAB PO PRN (01:53)
[2019-06-17] MEDS: Sodium Chloride 0.9% 1,000 ML IV SCH ×2 (02:19→20:17)
--- NOTE | 2019-06-17 02:23 | PDOC.HHP ---
Hospitalist HPI - History of Present Illness Chills and Fever History of Present Illness: Patient states he was on his computer at home at 2pm when he had sudden chills. He got into bed with several blankets and later noted to have a fever by his . He came into the ED. He had a temp of 102. Reports having a cough for the last 2 -3 days, unable to bring up phlegm except for one occasion and it was yellow in color. Denies any chest pain or sob. Reports mild abdominal discomfort since he drank glucerna this evening just a moment ago. States he has not had a bowel movement for a week. Reports passing some gas today. Denies any n/v and states he continues to tolerate oral intake. He has lost a significant amount of weight in the last several months. Of note patient has a history of metastatic gastric cancer for which he has been undergoing chemotherapy. He received 12 cycles of FOLFOX and states most recently he has been on 5FU only. His last treatment was approximately 4 weeks ago. He sees Dr. Valdez. Per recent records he had a PET scan done in 05/2019 which showed Patient was diagnosed with a malignant gastric ulcer after being admitted with an upper GI bleed when placed on anticoagulation for a flutter. ED Course: Started on IV Abx with Cefepime, Levaquin and Vancomycin. He received 2400 mL NS and His potassium was replaced. Urine was notable for 1+ bacteria. K+ was low at 3.1, BUn 28, Creat 1.6, GFR 45 Calcium 7.6, Alk phos 165, Albumin 2.3. Lactic acid was 1.4. Mg+ 1.7. WCC 9, Hgb 8.4, Hct 26.4. Plt 121. CXR done showed slightly increased markings in the right lung base, felt to represent atelectasis or suboptimal inspiration. Hospitalist ROS - Review of Systems Constitutional: reports: fever, chills (sudden onset), malaise Eyes: denies: pain, vision change, conjunctivae inflammation, eyelid inflammation, redness, other ENT: denies: ear pain, ear discharge, nose pain, nose discharge, nose congestion , mouth pain, mouth swelling, throat pain, throat swelling, other Respiratory: reports: cough Cardiovascular: denies: chest pain, palpitations, orthopnea, paroxysmal noc. dyspnea, edema, light headedness, other Gastrointestinal: reports: abdominal pain, constipation. denies: nausea, vomiting, diarrhea, melena, hematochezia, other Genitourinary: denies: dysuria, frequency, incontinence, hematuria, retention, other Musculoskeletal: denies: neck pain, shoulder pain, arm pain, back pain, hand pain, leg pain, foot pain, other Skin: denies: rash, lesions, jethro, bruising, other Neurological: denies: weakness, numbness, incoordination, change in speech, confusion, seizures, other - Medication Medications: Active Medications Generic Name Dose Route Start Last Admin Trade Name Freq PRN Reason Stop Dose Admin Sodium Chloride 1,000 mls @ 70 mls/hr 06/17/19 02:15 06/17/19 02:19 Normal Saline 0.9% IV 1,000 mls .[id number] LINDA Administration At home he is on Flecainide Metoprolol Multivitamin Pantoprazole Furosemide He is also currently on maintenance chemotherapy with 5FU. Hospitalist History - Past Medical History Source: patient Cardiac: reports: HTN, Other (history of aflutter) Gastrointestinal: reports: GERD Heme/Onc: reports: Cancer (Gastric cancer) - Exam General Appearance: NAD, awake alert Eye: PERRL, anicteric sclera ENT: dry oral mucosa Neck: supple Heart: RRR Respiratory: CTAB Gastrointestinal: soft, no guarding, distended Gastrointestinal - other findings: nodularity, Extremities: no cyanosis Extremities - other findings: trace edema Skin: no lesions Neurological: cranial nerve grossly intact, normal sensation to touch, no weakness Musculoskeletal: normal tone, normal strength, no muscle wasting Psychiatric: normal affect, normal behavior, A&O x 3 Hospitalist Results - Labs Result Diagrams: 06/17/19 02:40 Hospitalist H&P A/P - Problem (1) Fever and chills Code(s): R50.9 - FEVER, UNSPECIFIED Status: Acute (2) Productive cough Code(s): R05 - COUGH Status: Acute (3) Hypokalemia Code(s): E87.6 - HYPOKALEMIA Status: Acute (4) Constipation Code(s): K59.00 - CONSTIPATION, UNSPECIFIED Status: Acute (5) Anemia Code(s): D64.9 - ANEMIA, UNSPECIFIED Status: Chronic (6) Atrial flutter Code(s): I48.92 - UNSPECIFIED ATRIAL FLUTTER Status: Chronic (7) CKD (chronic kidney disease) Code(s): N18.9 - CHRONIC KIDNEY DISEASE, UNSPECIFIED Status: Chronic (8) Gastric cancer Status: Chronic (9) HTN (hypertension) Code(s): I10 - ESSENTIAL (PRIMARY) HYPERTENSION Status: Chronic - Plan Plan: Will continue IV Abx with Rocephin and Vanc. (Pharmacy to dose Vanc) Repeat labs including lactic acid KUB, to rule out obstruction Monitor BP. Hold furosemide given low BP. Add-on BNP to labs. Gentle hdyration. Monitor electrolytes, add-on Mg+ Replace as needed. Consult Oncology Given low sats in ED, concern for possible PE with current risk factors. Patient with history of GIB therefore anticoaguation contraindicated. Consider CT Chest to further assess for underlying pneumonia vs. CTA to assess for underyling PE as well. Pending labs to confirm current renal function (he received fluids at outside ED ). Consult Palliative Care PT/OT.
[2019-06-17 02:50] LABS: Hemoglobin 8.2 g/dL (14.0-18.0); Mean Corpuscular HGB CONC 31.9 g/dL (32.0-36.0); Mean Corpuscular Hemoglobin 34.2 pg (27.0-31.0); Red Blood Cell (RBC) Count 2.39 mill/uL (4.70-6.10); White Blood Cell (WBC) Count 11.6 thou/uL (4.8-10.8)
[2019-06-17 03:05] LABS: Band 11 % (5-11); Eosinophils 1 % (0-10); Lactic Acid 1.7 mmol/L (0.5-2.2); Lymphocytes 20 % (21-51); MDiff Complete? YES; Mean Platelet Volume 8.7 fL (7.4-10.4); Monocytes 14 % (0-10); Neutrophil 54 % (42-75); Platelet Count 91 thou/uL (130-400); Platelet Morphology Comment Appears Decreased
[2019-06-17 03:12] LABS: ALT (SGPT) 13 U/L (8-55); AST (SGOT) 22 U/L (5-34); Albumin 2.4 g/dL (3.4-4.8); Alkaline Phosphatase 148 U/L (40-110); Anion Gap 12 mmol/L (10-20); BUN (Urea Nitrogen) 27 mg/dL (8.4-25.7); Bilirubin, Total 0.7 mg/dL (0.2-1.2); Calc. Creatinine Clearance 52 mL/min (70-130); Calcium 7.3 mg/dL (7.8-10.44); Carbon Dioxide 28 mmol/L (23-31); Chloride 100 mmol/L (98-107); Estimated GFR-MDRD 49; Globulin 2.5 g/dL (2.4-3.5); Glucose 112 mg/dL (83-110); Lipase 14 U/L (8-78); Magnesium 1.7 mg/dL (1.6-2.6); Potassium 3.6 mmol/L (3.5-5.1); Protein, Total 4.9 g/dL (5.8-8.1); Sodium 136 mmol/L (136-145)
[2019-06-17] MEDS: Vancomycin HCl 1.25 GM in Sodium Chloride 0.9% 250 ML 250 ML IVPB SCH (04:00)
[2019-06-17] MEDS ORDERED: Cefepime 2 GM in Sodium Chloride 0.9% 100 ML IVPB SCH (09:00)
[2019-06-17] MEDS: Flecainide 50 MG TAB PO SCH ×2 (09:44→20:14)
[2019-06-17] MEDS: Furosemide 20 MG TAB PO SCH (09:45)
[2019-06-17] MEDS: Famotidine/PF 20 mg/2ml Vial SLOW IVP SCH ×2 (09:45→20:14)
--- NOTE | 2019-06-17 09:50 | RAD ---
ABDOMEN ONE VIEW: HISTORY: Abdominal distention. FINDINGS: There is air in the colon and rectum. There is fecal material in the rectosigmoid. The cecum is dilat ed, measuring 12.5 cm. There is air in loops of small bowel without abnormal dilatation. There are postop changes of left hip arthroplasty. CODE T POS: SJ
[2019-06-17] MEDS: cefTRIAXone\\ROCEPHIN 2 GM in Sodium Chloride 0.9% 100 ML IVPB SCH (09:55)
[2019-06-17] MEDS ORDERED: Rocuronium Bromide 10 MG/ML (10ML VIAL) ONE (11:25)
--- NOTE | 2019-06-17 13:33 | PDOC.HOSPP ---
- Subjective Encounter Date: 06/17/19 Encounter Time: 10:00 Subjective: pt up in bed complains of pain to his LLq - Objective Vital Signs & Weight: Vital Signs (12 hours) Temp Pulse Resp BP BP Pulse Ox 06/17/19 12:00 98.1 F 67 18 101/63 100 06/17/19 08:00 97.7 F 73 18 113/69 96 06/17/19 04:34 97.6 F 72 20 110/62 100 Weight Weight 186 lb 4.8 oz I&O: 06/16/19 06/17/19 06/18/19 06:59 06:59 06:59 Intake Total 450 Output Total 200 Balance 250 Result Diagrams: 06/17/19 02:40 06/17/19 02:40 Hospitalist ROS - Review of Systems Respiratory: denies: cough, dry, shortness of breath, hemoptysis, SOB with excertion, pleuritic pain, sputum, wheezing, other Cardiovascular: denies: chest pain, palpitations, orthopnea, paroxysmal noc. dyspnea, edema, light headedness, other Gastrointestinal: reports: abdominal pain Genitourinary: denies: dysuria, frequency, incontinence, hematuria, retention, other - Medication Medications: Active Medications Generic Name Dose Route Start Last Admin Trade Name Freq PRN Reason Stop Dose Admin Famotidine 20 mg 06/17/19 09:00 06/17/19 09:45 Pepcid SLOW IVP 20 mg Q12HR LINDA Administration Flecainide Acetate 50 mg 06/17/19 09:00 06/17/19 09:44 Tambocor PO 50 mg Q12HR LINDA Administration Furosemide 20 mg 06/17/19 09:00 06/17/19 09:45 Lasix PO 20 mg DAILY LINDA Administration Sodium Chloride 1,000 mls @ 70 mls/hr 06/17/19 02:15 06/17/19 02:19 Normal Saline 0.9% IV 1,000 mls .[id number] LINDA Administration Ceftriaxone Sodium 2 gm/ 100 mls @ 200 mls/hr 06/17/19 09:00 06/17/19 09:55 Sodium Chloride IVPB 100 mls Q24HR LINDA Administration Vancomycin HCl 1.25 gm/ Sodium 250 mls @ 166.667 mls/hr 06/17/19 04:00 04:00 Chloride IVPB 250 mls 0400 LINDA Administration Metoprolol Succinate 12.5 mg 06/17/19 09:00 06/17/19 09:43 Toprol Xl PO 12.5 mg DAILY LINDA Administration Pantoprazole Sodium 40 mg 06/17/19 09:00 06/17/19 09:56 Protonix PO 40 mg BID LINDA Administration - Exam ENT: negative: normocephalic atraumatic, no oropharyngeal lesions, moist mucosa , dry oral mucosa Neck: negative: supple, symmetric, no JVD, no thyromegaly, no lymphadenopathy, no carotid bruit, JVD Heart: negative: RRR, no murmur, no gallops, no rubs, normal peripheral pulses, irregular, diminshed peripheral pulses, murmur present, II/IV, III/IV Respiratory: negative: CTAB, no wheezes, no rales, no ronchi, normal chest expansion, no tachypnea, normal percussion, rales, rhonchi, tachypneic, wheezes Gastrointestinal: normal bowel sounds, tender to palpation Extremities: negative: no cyanosis, no clubbing, no edema, 1+ LE edema, 2+ LE edema, clubbing Skin: negative: normal turgor, no lesions, no rashes, tenting Hosp A/P (1) Pain in the abdomen Code(s): R10.9 - UNSPECIFIED ABDOMINAL PAIN Status: Acute (2) Gastric cancer Status: Acute (3) Right lower lobe pneumonia Code(s): J18.1 - LOBAR PNEUMONIA, UNSPECIFIED ORGANISM Status: Acute (4) Anemia Code(s): D64.9 - ANEMIA, UNSPECIFIED Status: Chronic (5) CKD (chronic kidney disease) Code(s): N18.9 - CHRONIC KIDNEY DISEASE, UNSPECIFIED Status: Chronic - Plan pt's cecum has been dilated, will get ct abd/pel and give fleet enema. will continue abx for now. He has had only one bm last week.
[2019-06-17] MEDS ORDERED: Fleet Enema 133 ML BOT PR SCH (13:45)
--- NOTE | 2019-06-17 15:10 | CON ---
DATE OF CONSULTATION: 06/17/2019 REASON FOR CONSULTATION: Metastatic gastric carcinoma with possible sepsis. 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 He has been treated with chemotherapy since August 2018 and has done reasonably well. However, the most recent PET scan on June 07 did show possible evidence of progression. In addition, it also showed thickening of the right colon and sigmoid colon with inflammation in the sigmoid colon, SUV 20. In this setting, he presented to the emergency room with a fever of 102 with associated cough. O2 saturations were noted to be in the 80s. He has complained of some abdominal distention without true pain, nausea, vomiting, or diarrhea. He has had some crampy discomfort on occasion. He was admitted and has been placed on empiric antibiotics and supplemental oxygen. I am asked to see the patient to provide further management and recommendations. ALLERGIES: NONE. MEDICATIONS: 1. Amitriptyline. 2. Flecainide. 3. Lasix. 4. Metoprolol. 5. Protonix. PAST MEDICAL HISTORY: Medical illness, there is a history of hypertension and cardiac arrhythmias. PAST SURGICAL HISTORY: Surgery, he has undergone a left hip surgery in the past. FAMILY HISTORY: The patient's sister had breast cancer. There is no history of gastrointestinal malignancy. SOCIAL HISTORY: He is and his is present during the examination today. He has two children. He is a former smoker. 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 REVIEW OF SYSTEMS: See history of present illness. Otherwise, he denies significant cardiopulmonary, GI, , musculoskeletal, or neurological complaints. PHYSICAL EXAMINATION: VITAL SIGNS: Temperature 98.1, pulse 67 and regular, respirations 18, O2 saturation 100% on 2 L, and blood pressure 101/63. GENERAL: The patient is a well-developed and well-nourished white male, in no acute distress. He is alert, oriented, and cooperative. He is sitting in a chair, conversing appropriately. HEENT: The extraocular movements are intact. The pupils are equal, round, and reactive to light. NECK: Supple. LUNGS: Clear. CARDIOVASCULAR: Regular rate and rhythm without murmur, rub, gallop, or click. ABDOMEN: The abdomen is slightly distended, but nontender without mass or organomegaly. There is no rebound. EXTREMITIES: There is trace to 1+ edema bilaterally. LYMPH: No adenopathy. MUSCULOSKELETAL: No active arthritis. NEUROLOGIC: No focal findings and the cranial nerves 2 through 12 are grossly intact. LABORATORY DATA: White blood cell count 11.6 with 54 neutrophils, 11 bands, 20 lymphocytes, 14 monocytes, and 1 eosinophil. The hemoglobin is 8.2, MCV 107, and platelet count 91,000. Chemistry showed normal electrolytes and a creatinine of 1.39. The albumin is 2.4 and calcium 7.3. Liver function studies are normal except for a borderline alkaline phosphatase of 148. IMAGING: A plain film of the abdomen shows that there is air in the colon and rectum. There is fecal material throughout the rectosigmoid. The cecum is slightly dilated measuring 12.5 cm. There is air and loops of small bowel without abnormal dilation. IMPRESSION: 1. Metastatic HER-2 positive adenocarcinoma of the stomach. 2. Fever, respiratory complaints, and hypoxia. 3. Abdominal distention with PET evidence of diffuse colon inflammation. RECOMMENDATIONS: I agree with empiric antibiotics, O2, and general supportive measures. GI consultation has been planned and is warranted in this setting, while the abdominal findings may be related to chemotherapy, infection such as C. diff involvement of the colon should be considered. Thanks very much for allowing me to provide my recommendations. We will follow with you. Job ID: [id number]
--- NOTE | 2019-06-17 19:43 | CT ---
CT ABDOMEN AND PELVIS PERFORMED WITHOUT CONTRAST ENHANCEMENT: Date: 06/17/2019 HISTORY: Gastric cancer. Abdominal pain x2 weeks. Last chemo treatment was 6 weeks ago. COMPARISON: KUB examination done earlier today. PET scan study of 06/07/19. FINDINGS: There are worsening bibasilar lung changes with air bronchograms. Also changes of the right middle lo be. The liver and spleen show no focal abnormalities. Once again, there is a soft tissue mass along t he body of the stomach and involving the pancreatic tail region. This measures approximately 6.0 cm i n size. It appears relatively stable. There is moderate distention of the cecum, ascending colon, and transverse colon to the level of the splenic flexure where there is a mild transition to the more no rmal caliber colon. A moderate amount of stool is seen associated with this. There is suggestion of s ome questionable slight wall thickening to the ascending colon, but no pneumatosis. The mass in the g astric body and pancreatic tail region does not appear to be definitely contiguous with this, althoug h changes may indirectly be related to this area. There is a gallstone noted within a contracted gall bladder. Moderate ascites is again seen. The right and left adrenal glands, and right kidney are normal. Marked left-sided hydronephrosis and hydroureter with severe cortical thinning in the left kidney and a renal cyst appear to be a stable f inding. The ureter appears to be dilated to the level of the pelvic brim. It is difficult to see dist al to this area. There are some soft tissue changes in this area which is directly adjacent to the si gmoid colon. These changes are also stable since the previous exam. There is moderate ascites noted w ithin the pelvis. Marked arthritic changes of the spine are seen. Left hip prosthesis is noted. IMPRESSION: 1. Worsening bibasilar lung changes suggesting some developing infiltrate. 2. Stable moderate ascites as compared to the prior exam. 3. Stable appearance to the mass along the posterior aspect of the body of the stomach and pancreati c tail region. 4. There has been development of moderate right-sided colonic distention with stool within the ascen ding and transverse colon to the level of the splenic flexure. There is an area of mild transition wh ich is directly lateral to this area of mass in the gastric body and pancreatic tail region which blount s not definitely encircle this area but there could be some inflammatory change which may be contribu ting to this area of transition. 5. Left-sided hydronephrosis and hydroureter to the level of the pelvic brim. This is an area of kirstie e vague soft tissue change adjacent to the sigmoid colon which is unchanged since the prior exam. 6. Ascites is essentially stable and a gallstone again noted. 7. Soft tissue masses seen along the anterior abdominal wall at the level of the transverse colon ar e similar to the previous study. POS: AMA
[2019-06-17] MEDS ORDERED: Loratadine 10 MG TAB PO PRN (22:14)
[2019-06-18] MEDS: Vancomycin HCl 1.25 GM in Sodium Chloride 0.9% 250 ML 250 ML IVPB SCH (03:27)
[2019-06-18] MEDS: cefTRIAXone\\ROCEPHIN 2 GM in Sodium Chloride 0.9% 100 ML IVPB SCH (08:05)
[2019-06-18] MEDS: Famotidine/PF 20 mg/2ml Vial SLOW IVP SCH ×2 (08:06→20:41)
[2019-06-18] MEDS: Flecainide 50 MG TAB PO SCH ×2 (08:06→20:40)
[2019-06-18] MEDS: Furosemide 20 MG TAB PO SCH (08:06)
[2019-06-18] MEDS ORDERED: Bisacodyl 5 MG TAB PO SCH (08:30)
[2019-06-18] MEDS ORDERED: Fleet Enema 133 ML BOT PR SCH (08:45)
[2019-06-18] MEDS ORDERED: Polyethylene Glycol 3350 17 GM Packet PO SCH (09:00)
--- NOTE | 2019-06-18 13:36 | PDOC.HOSPP ---
- Subjective Encounter Date: 06/18/19 Encounter Time: 10:15 Subjective: pt up in bed had a bm yesterday. - Objective Vital Signs & Weight: Vital Signs (12 hours) Temp Pulse Resp BP Pulse Ox 06/18/19 11:00 97.3 F L 66 18 120/65 100 06/18/19 08:00 100 06/18/19 07:54 97.5 F L 68 18 109/67 100 Weight Weight 186 lb 4.8 oz I&O: 06/17/19 06/18/19 06/19/19 06:59 06:59 06:59 Intake Total 450 Output Total 200 Balance 250 Result Diagrams: 06/17/19 02:40 06/17/19 02:40 Hospitalist ROS - Review of Systems Respiratory: denies: cough, dry, shortness of breath, hemoptysis, SOB with excertion, pleuritic pain, sputum, wheezing, other Cardiovascular: denies: chest pain, palpitations, orthopnea, paroxysmal noc. dyspnea, edema, light headedness, other Gastrointestinal: denies: nausea, vomiting, abdominal pain, diarrhea, constipation, melena, hematochezia, other - Medication Medications: Active Medications Generic Name Dose Route Start Last Admin Trade Name Freq PRN Reason Stop Dose Admin Famotidine 20 mg 06/17/19 09:00 06/18/19 08:06 Pepcid SLOW IVP 20 mg Q12HR LINDA Administration Flecainide Acetate 50 mg 06/17/19 09:00 06/18/19 08:06 Tambocor PO 50 mg Q12HR LINDA Administration Furosemide 20 mg 06/17/19 09:00 06/18/19 08:06 Lasix PO 20 mg DAILY LINDA Administration Ceftriaxone Sodium 2 gm/ 100 mls @ 200 mls/hr 06/17/19 09:00 06/18/19 08:05 Sodium Chloride IVPB 100 mls Q24HR LINDA Administration Vancomycin HCl 1.25 gm/ Sodium 250 mls @ 166.667 mls/hr 06/17/19 04:00 03:27 Chloride IVPB 250 mls 0400 LINDA Administration Metoprolol Succinate 12.5 mg 06/17/19 09:00 06/18/19 08:06 Toprol Xl PO 12.5 mg DAILY LINDA Administration Pantoprazole Sodium 40 mg 06/17/19 09:00 06/18/19 08:06 Protonix PO 40 mg BID LINDA Administration - Exam Neck: negative: supple, symmetric, no JVD, no thyromegaly, no lymphadenopathy, no carotid bruit, JVD Heart: negative: RRR, no murmur, no gallops, no rubs, normal peripheral pulses, irregular, diminshed peripheral pulses, murmur present, II/IV, III/IV Respiratory: negative: CTAB, no wheezes, no rales, no ronchi, normal chest expansion, no tachypnea, normal percussion, rales, rhonchi, tachypneic, wheezes Gastrointestinal: soft, non-tender Gastrointestinal - other findings: mild distention Hosp A/P (1) Pain in the abdomen Code(s): R10.9 - UNSPECIFIED ABDOMINAL PAIN Status: Acute (2) Gastric cancer Status: Acute (3) Right lower lobe pneumonia Code(s): J18.1 - LOBAR PNEUMONIA, UNSPECIFIED ORGANISM Status: Acute (4) Anemia Code(s): D64.9 - ANEMIA, UNSPECIFIED Status: Chronic (5) CKD (chronic kidney disease) Code(s): N18.9 - CHRONIC KIDNEY DISEASE, UNSPECIFIED Status: Chronic (6) Hydronephrosis Code(s): N13.30 - UNSPECIFIED HYDRONEPHROSIS Status: Acute - Plan pt's cecum has been dilated, will get ct abd/pel and give fleet enema. will continue abx for now. He has had only one bm last week. 06/18 will get urology to see pt for his left hydro no previous scan for comparison. He does have ckd. pt had a small bm.will give him another enema. if no improvement will rx magcitrate.
--- NOTE | 2019-06-18 16:13 | PDOC.MOPN ---
Interval History: breathing well, no fever. C/o constipation despite fleets. - Vital Signs Vital Signs: Vital Signs (12 hours) Temp Pulse Resp BP Pulse Ox 06/18/19 11:00 97.3 F L 66 18 120/65 100 06/18/19 08:00 100 06/18/19 07:54 97.5 F L 68 18 109/67 100 Weight Weight 186 lb 4.8 oz - Physical Exam General: Alert, Oriented x3, No acute distress HEENT: Atraumatic, PERRLA, EOMI, Mucous membr. moist/pink Lungs: Clear to auscultation, Normal air movement Cardiovascular: Regular rate, Normal S1, Normal S2, No murmurs, Gallops, Rubs Abdomen: Normal bowel sounds, Soft, No tenderness, No hepatospenomegaly, No masses Extremities: No clubbing, No cyanosis, No edema, Normal pulses, No tenderness/ swelling Skin: No rashes, No breakdown, No significant lesion Neurological: Normal gait, Normal speech, Strength at 5/5 X4 ext, Normal tone, Sensation intact, Cranial nerves 3-12 NL, Reflexes 2+ Psych/Mental Status: Mental status NL, Mood NL - Labs Result Diagrams: 06/17/19 02:40 06/17/19 02:40 Status: lab reviewed by me A/P - Problem (1) Constipation Current Visit: Yes Code(s): K59.00 - CONSTIPATION, UNSPECIFIED Status: Acute (2) Gastric cancer Current Visit: Yes Status: Acute - Plan Plan: continue meds for constipation follow-up [facility] as scheduled.
[2019-06-18] MEDS: Sodium Chloride 0.9% 1,000 ML IV SCH (16:30)
[2019-06-18] MEDS: Polyethylene Glycol 3350 17 GM Packet PO SCH (20:41)
--- NOTE | 2019-06-19 00:07 | CON ---
DATE OF CONSULTATION: 06/18/2019 REASON FOR CONSULTATION: 1. Left-sided hydronephrosis and hydroureter extending to the level of pelvic brim. 2. Declining glomerular filtration rate. 3. Initial stage T3 N2 gastric cancer with liver metastases and diffuse metastatic disease throughout the abdomen and lungs. 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 The patient has been evaluated at [facility] and is currently under treatment here by Dr. Brendon Valdez for his metastatic HER2 positive adenocarcinoma of the stomach. The patient has evidence of metastatic disease within the pancreatic tail and in addition to liver metastases. The patient further has diffuse metastatic disease throughout the abdomen and lungs. On this hospital admission, he has been found to have hydronephrosis and hydroureter on the left side which terminates at the level of the pelvic brim and I have been consulted to evaluate him with regard to that. Ezra Anam's past genitourinary urinary history is only notable for TURP, which he believes was performed by Dr. Garrido over 10 years ago here at the [facility]. The patient also is having problems with his GI system on this admission with evidence of possible obstruction and/or constipation, is not completely clear at this point as he has had very poor bowel prep so far. The patient also has an issue with atrial flutter and atrial fibrillation, and has been on Eliquis following a cardioversion performed by Dr. Reyes. The patient is otherwise doing well. The patient did have evidence of some bibasilar infiltrates on this admission, has been covered with appropriate antibiotics for that. He is currently on ceftriaxone with improvement. He is also receiving vancomycin as well. Respiratory cultures positive for gram-positive cocci in pairs and clusters, as well as gram-positive rods. PAST MEDICAL HISTORY: 1. As described above. T3 N2 gastric cancer, now with diffuse metastatic disease within the abdomen and the lungs. Primary tumor in patient's pancreatic tail, as well as the liver. 2. 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 3. Past history of BPH, status post TURP. 4. New onset left-sided hydronephrosis. 5. Hypertension. PAST SURGICAL HISTORY: 1. Left hip surgery. 2. Transurethral resection of prostate. FAMILY MEDICAL HISTORY: Patient's sister has breast cancer and is now . 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 He is and has two children. Resides with his spouse. He is a former smoker of pipes and cigars, currently not smoking since the University bans smoking on campus. Formally consumed alcohol, but not at present. ALLERGIES: THE PATIENT REPORTS ALLERGIES TO SOME TYPE OF BLOOD THINNER RESULTING IN BLEEDING. OUTPATIENT MEDICATIONS: Included: 1. Amitriptyline 25 mg per day. 2. Centrum 9 mg or iron in 15 mL of oral liquid. 3. Flecainide 50 mg tablets. 4. Furosemide 20 mg tablets. 5. Metoprolol succinate ER 25 mg extended release. 6. Pantoprazole 40 mg tablets. 7. Previously on Lasix, but this has been discontinued. REVIEW OF SYSTEMS: CONSTITUTIONAL: The patient reports fatigue, weight loss, and loss of appetite. HEAD, EYES, EARS, NOSE, AND THROAT: Otherwise negative. CARDIAC AND CHEST: No chest pain, palpitations, or edema. ABDOMEN: Distention, constipation without diarrhea or vomiting. GENITOURINARY: The patient does not report difficulty emptying his bladder. He does have a history of previous surgery on the prostate gland. No history of previous bladder cancer or recent cystoscopic evaluations. He has not seen a urologist in many years. MUSCULOSKELETAL: Notable for patient's history of left hip surgery. Also reports some stumbling and difficulties with walking. PHYSICAL EXAMINATION: VITAL SIGNS: Patient is currently afebrile. Temperature 97.5, pulse 66, respirations 18, O2 saturation 100% on room air, and blood pressure is 120/65. GENERAL: This is a pleasant elderly white male, in no apparent distress. He is a reasonable historian. LUNGS: Clear bilaterally anteriorly. There are crackles and some dullness posteriorly. CARDIAC: There is an irregularly irregular rhythm. The abdomen is distended to my exam. Percussion reveals increased resonance in all four quadrants. GENITOURINARY: Phallus is without lesion. Foreskin retracts easily. Urethral meatus is adequate. Testes are found present bilaterally in the scrotum and are smooth, anodular, nontender, and atrophic. Digital rectal examination is performed and finds approximately 15 to 20 g prostate gland which is small, nontender, and not suspicious. BACK: There is decubitus prevention pad in place. There is no flank pain over either the left or right kidney. RADIOLOGIC STUDIES: A CT scan of the abdomen and pelvis performed on 06/17/2019 shows left-sided hydronephrosis and hydroureter extending to the pelvic brim. The right kidney appears normal. The left kidney has some thinning of the parenchyma approximately 1/3 of the original parenchyma remains. A PET nuclear scan was performed on 06/07/2019. This study showed multifocal malignancy in the upper abdomen, colonic wall inflammation and hypermetabolic activity, which was multifocal in location and small area of increased metabolic activity in the right upper lung as well. I reviewed that PET scan study from 06/07/2019 on the [facility] monitor and the parenchymal thinning and hydronephrosis as well as hydroureter are present on the nuclear medicine study from 06/07/2019 and essentially unchanged on the followup study here on 06/17/2019. Last previous PET scan study was done on March 13, 2019, and that study similarly showed a degree of hydronephrosis and hydroureter extending to the pelvic brim, which is of roughly the same degree as the findings on the current admission. These findings correlate well with my assessment that this is a more or less chronic finding. ASSESSMENT AND PLAN: Hydronephrosis and hydroureter of the left kidney are long-standing and chronic issue for this patient. It may well be due to retroperitoneal lymph node enlargement or other type of extrinsic compression of the ureter. The patient may also have metastatic disease extending to the bladder itself since there are many metastatic sites in this patient. I discussed with the patient the possible merits of cystoscopy and stent placement. At present time, there has been so much thinning of the parenchyma of the left kidney and appears that stenting him will only allow chemotherapeutic agents to exit from the kidney. It is not clear that he is actually obstructed on the left side either, although there is hydronephrosis and hydroureter suggesting that a nuclear medicine MAG 3 scan could be performed to evaluate flow and function of the kidneys. It is possible the kidney itself is not functional. I also discussed with the patient the relative merits of simply performing retrograde pyelography and placing a stent. We discussed the long-term discomfort issues with that. Most of the bladder spasm medicines also have concomitant side effects that cause constipation and this make the patient's current issues even more difficult to manage. I discussed with the patient that this is a chronic problem and we do not need to make an acute decision today. I do not think it is part of his acute presentation to the hospital on this admission either. I discussed with the patient that he would need to be cleared from a cardiac standpoint before proceeding to the operating room for any exploration, retrograde pyelography or other studies. A MAG 3 renal scan study could be obtained as an inpatient or outpatient to evaluate flow, function, and residual function as well as assess the degree of obstruction in this patient's collecting system on each side. Over 70 minutes of consultation, assessment, and evaluation time was spent evaluating the patient today. Job ID: [id number]
[2019-06-19] MEDS: Vancomycin HCl 1.25 GM in Sodium Chloride 0.9% 250 ML 250 ML IVPB SCH (03:58)
[2019-06-19] MEDS: cefTRIAXone\\ROCEPHIN 2 GM in Sodium Chloride 0.9% 100 ML IVPB SCH (08:06)
[2019-06-19] MEDS: Furosemide 20 MG TAB PO SCH (08:06)
[2019-06-19] MEDS: Flecainide 50 MG TAB PO SCH ×2 (08:08→21:49)
[2019-06-19] MEDS: Famotidine/PF 20 mg/2ml Vial SLOW IVP SCH (08:08)
[2019-06-19] MEDS: Polyethylene Glycol 3350 17 GM Packet PO SCH ×2 (08:27→21:50)
--- NOTE | 2019-06-19 08:57 | PDOC.MOPN ---
Interval History: Pt feeling better today. He had a BM each of the the last 2 days and feels relieved. He is still on 2L O2 but denies SOB. He walked to the bathroom w/o oxygen and was not dyspneic. No other complaints. - Vital Signs Vital Signs: Vital Signs (12 hours) Temp Pulse Resp BP Pulse Ox 06/19/19 08:00 97.5 F L 67 18 116/75 100 Weight Admit Weight 186 lb 4.65 oz Weight 186 lb 4.65 oz - Physical Exam General: Alert, Oriented x3, Cooperative HEENT: EOMI Lungs: Other (slightly decreased and rhoncourous BS over left [id number] lung field, right side CTAB) Cardiovascular: Regular rate Abdomen: Soft, No tenderness Neurological: Cranial nerves 3-12 NL Psych/Mental Status: Mental status NL, Mood NL - Labs Result Diagrams: 06/17/19 02:40 06/17/19 02:40 Lab results: Laboratory Results - last 24 hr 06/19/19 02:58: Vancomycin Trough 16.0 A/P - Problem (1) Constipation Current Visit: Yes Code(s): K59.00 - CONSTIPATION, UNSPECIFIED Status: Acute (2) Gastric cancer Current Visit: Yes Status: Acute (3) Acute on chronic anemia Current Visit: No Code(s): D64.9 - ANEMIA, UNSPECIFIED Status: Acute (4) Right lower lobe pneumonia Current Visit: No Code(s): J18.1 - LOBAR PNEUMONIA, UNSPECIFIED ORGANISM Status: Acute (5) Thrombocytopenia Current Visit: No Code(s): D69.6 - THROMBOCYTOPENIA, UNSPECIFIED Status: Acute (6) CKD (chronic kidney disease) Current Visit: No Code(s): N18.9 - CHRONIC KIDNEY DISEASE, UNSPECIFIED Status: Chronic - Plan Plan: Cont antibiotics and taper off Oxygen cont bowel regimen f/u Dr. Reyes for potential cardiac ablation f/u Dr. Hutton regarding possible urologic intervention, though kidneys seem to be improving f/u MD Carvalho for possible clinical trial
[2019-06-19 10:16] LABS: Hemoglobin 9.7 g/dL (14.0-18.0); Mean Corpuscular HGB CONC 33.1 g/dL (32.0-36.0); Platelet Count 109 thou/uL (130-400); RBC Distribution Width 14.5 % (11.5-14.5); Red Blood Cell (RBC) Count 2.69 mill/uL (4.70-6.10); White Blood Cell (WBC) Count 8.4 thou/uL (4.8-10.8)
[2019-06-19 10:27] LABS: Anion Gap 13 mmol/L (10-20); BUN (Urea Nitrogen) 22 mg/dL (8.4-25.7); Calc. Creatinine Clearance 57 mL/min (70-130); Calcium 7.8 mg/dL (7.8-10.44); Carbon Dioxide 27 mmol/L (23-31); Chloride 100 mmol/L (98-107); Estimated GFR-MDRD 55; Glucose 133 mg/dL (83-110); Potassium 3.6 mmol/L (3.5-5.1); Sodium 136 mmol/L (136-145)
[2019-06-19 11:07] LABS: Band 5 % (5-11); Eosinophils 3 % (0-10); Lymphocytes 25 % (21-51); MDiff Complete? YES; Monocytes 14 % (0-10); Neutrophil 53 % (42-75); Platelet Morphology Comment Appears Decreased; Polychromasia SLIGHT = 2-3 cells (100X) (0-2/hpf)
[2019-06-19] MEDS ORDERED: Magnesium Citrate 300 ML BOT PO SCH (13:30)
--- NOTE | 2019-06-19 14:59 | PDOC.HOSPP ---
- Subjective Encounter Date: 06/19/19 Encounter Time: 10:30 Subjective: pt up in bed had a bowl movement. - Objective Vital Signs & Weight: Vital Signs (12 hours) Temp Pulse Resp BP Pulse Ox 06/19/19 11:54 97.5 F L 69 18 117/70 100 06/19/19 08:00 97.5 F L 67 18 116/75 100 Weight Admit Weight 186 lb 4.65 oz Weight 186 lb 4.65 oz I&O: 06/18/19 06/19/19 06/20/19 06:59 06:59 06:59 Intake Total 1440 540 Balance 1440 540 Result Diagrams: 06/19/19 09:58 06/19/19 09:58 Hospitalist ROS - Review of Systems Respiratory: denies: cough, dry, shortness of breath, hemoptysis, SOB with excertion, pleuritic pain, sputum, wheezing, other Cardiovascular: denies: chest pain, palpitations, orthopnea, paroxysmal noc. dyspnea, edema, light headedness, other Gastrointestinal: denies: nausea, vomiting, abdominal pain, diarrhea, constipation, melena, hematochezia, other - Medication Medications: Active Medications Generic Name Dose Route Start Last Admin Trade Name Freq PRN Reason Stop Dose Admin Famotidine 20 mg 06/17/19 09:00 06/19/19 08:08 Pepcid SLOW IVP 20 mg Q12HR LINDA Administration Flecainide Acetate 50 mg 06/17/19 09:00 06/19/19 08:08 Tambocor PO 50 mg Q12HR LINDA Administration Furosemide 20 mg 06/17/19 09:00 06/19/19 08:06 Lasix PO 20 mg DAILY LINDA Administration Ceftriaxone Sodium 2 gm/ 100 mls @ 200 mls/hr 06/17/19 09:00 06/19/19 08:06 Sodium Chloride IVPB 100 mls Q24HR LINDA Administration Magnesium Citrate 300 ml 06/19/19 13:30 06/19/19 14:47 Citrate Of Magnesia 300 Ml Bot PO 06/19/19 15:30 300 ml NOW LINDA Administration Metoprolol Succinate 12.5 mg 06/17/19 09:00 06/19/19 08:06 Toprol Xl PO 12.5 mg DAILY LINDA Administration Pantoprazole Sodium 40 mg 06/17/19 09:00 06/19/19 08:06 Protonix PO 40 mg BID LINDA Administration Polyethylene Glycol 17 gm 06/18/19 21:00 06/19/19 08:27 Miralax PO 17 gm BID LINDA Administration - Exam Respiratory: negative: CTAB, no wheezes, no rales, no ronchi, normal chest expansion, no tachypnea, normal percussion, rales, rhonchi, tachypneic, wheezes Gastrointestinal: negative: soft, non-tender, non-distended, normal bowel sounds , no palpable masses, no hepatomegaly, no splenomegaly, no bruit, no guarding, no rigidity, tender to palpation, distended, diminished bowl sounds, voluntary guarding Extremities: negative: no cyanosis, no clubbing, no edema, 1+ LE edema, 2+ LE edema, clubbing Hosp A/P (1) Pain in the abdomen Code(s): R10.9 - UNSPECIFIED ABDOMINAL PAIN Status: Acute (2) Gastric cancer Status: Acute (3) Right lower lobe pneumonia Code(s): J18.1 - LOBAR PNEUMONIA, UNSPECIFIED ORGANISM Status: Acute (4) Anemia Code(s): D64.9 - ANEMIA, UNSPECIFIED Status: Chronic (5) CKD (chronic kidney disease) Code(s): N18.9 - CHRONIC KIDNEY DISEASE, UNSPECIFIED Status: Chronic (6) Hydronephrosis Code(s): N13.30 - UNSPECIFIED HYDRONEPHROSIS Status: Acute - Plan pt's cecum has been dilated, will get ct abd/pel and give fleet enema. will continue abx for now. He has had only one bm last week. 06/18 will get urology to see pt for his left hydro no previous scan for comparison. He does have ckd. pt had a small bm.will give him another enema. if no improvement will rx magcitrate. 06/19 will order magcitrate x1, pt wants me to ask EP if the procedure can be done while he is in the hospital. will stop vanco and continue ceftriaxone. Pt has not had any fever. will try to wean him off oxygen.
[2019-06-19] MEDS ORDERED: Fleet Enema 133 ML BOT PR SCH (20:45)
[2019-06-19] MEDS ORDERED: Famotidine 20 MG TAB PO SCH (21:00)
[2019-06-20 05:36] LABS: #Basophils 0.1 thou/uL (0.0-0.2); #Eosinphils 0.3 thou/uL (0.0-0.7); #Lymphocytes 3.8 thou/uL (1.20-3.40); #Monocytes 1.6 thou/uL (0.11-0.59); #Neutrophils 6.2 thou/uL (1.40-6.50); %Basophils 0.5 % (0.0-1.0); %Eosinophils 2.4 % (0.0-10.0); %Lymphocytes 31.9 % (21.0-51.0); %Monocytes 13.6 % (0.0-10.0); %Neutrophils 51.5 % (42.0-75.0); Hemoglobin 10.3 g/dL (14.0-18.0); Mean Corpuscular HGB CONC 32.4 g/dL (32.0-36.0); Mean Corpuscular Hemoglobin 34.6 pg (27.0-31.0); Mean Platelet Volume 8.3 fL (7.4-10.4); Platelet Count 142 thou/uL (130-400); RBC Distribution Width 14.7 % (11.5-14.5); Red Blood Cell (RBC) Count 2.98 mill/uL (4.70-6.10)
[2019-06-20 05:53] LABS: Anion Gap 11 mmol/L (10-20); BUN (Urea Nitrogen) 21 mg/dL (8.4-25.7); Calc. Creatinine Clearance 59 mL/min (70-130); Calcium 8.2 mg/dL (7.8-10.44); Carbon Dioxide 29 mmol/L (23-31); Chloride 100 mmol/L (98-107); Estimated GFR-MDRD 57; Glucose 117 mg/dL (83-110); Potassium 3.8 mmol/L (3.5-5.1); Sodium 136 mmol/L (136-145)
--- NOTE | 2019-06-20 08:16 | PRG ---
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 At the present time, the patient has evidence of diffuse metastatic disease in the abdomen and lungs, and is having some GI difficulties in addition to his left hydronephrosis and hydroureter. Yesterday, I reviewed multiple studies demonstrating the patient has actually had the hydronephrosis and hydroureter for quite sometime. The patient is not reporting flank pain, is not having acute obstructive issues that would be associated with infection, and is relatively pain free. I had a long discussion with him regarding possible interventions, evaluations and assessments, and we discussed again at length today a nuclear medicine MAG 3 renal scan study to assess renal function as well as to assess the level of obstruction on the left. At the present time, the patient is inclined to proceed with that, but he has studies planned with Dr. Reyes, as well as some outpatient studies that have already been ordered by his oncologist, Dr. Brendon Valdez. PHYSICAL EXAMINATION: VITAL SIGNS: The patient remains afebrile. Temperature of 97.3, pulse 88, respirations 18, O2 saturation on room air is 100%. Blood pressure is 114/83. GENERAL: Today, the patient is up on the bedside potty chair with attempting to clear his bowels. He has had some bowel preparation medications int trying to clear his bowel, so physical exam today is limited to observation. PULMONARY: The patient is breathing without difficulty. Does not appear to be in any type of respiratory distress. EXTREMITIES: Appear within normal limits. LABORATORY STUDIES: The patient's white count is 8400, improved from 11.6, two days ago. Hemoglobin is 29.2 with a hematocrit of 9.7 . Serum chemistries are essentially within normal limits except for glucose, which is elevated at 133. Estimated glomerular filtration rate has improved marginally at 55. Blood urea nitrogen is fallen to 22 from 27. Creatinine is improved to 1.27, which is also normal from a previous elevated value of 1.39. ASSESSMENT AND PLAN: 1. Concerns for left ureteral obstruction secondary to hydronephrosis finding on recent imaging. Discussed with the patient merits of proceeding with a Mag 3 renal scan studies since he is not having a pyelonephritis episode or other infective process and is pain free at the present time. I did discuss with the patient alternative evaluations which would be cystoscopy, retrograde pyelography, and stent placement, which may change his quality of life in a negative way. 2. The patient is inclined to proceed with a nuclear medicine study if this could be scheduled around his other events for tomorrow. 3. Cardiac issues. The patient is to undergo evaluation by Dr. Reyes tomorrow. Plans are not quite settled at this point. Discussed with the patient that our plans for nuclear medicine study are at the end of the list and could actually be performed as an outpatient. Job ID: [id number]
[2019-06-20] MEDS: Polyethylene Glycol 3350 17 GM Packet PO SCH ×2 (09:05→19:37)
[2019-06-20] MEDS: Flecainide 50 MG TAB PO SCH (09:06)
[2019-06-20] MEDS: cefTRIAXone\\ROCEPHIN 2 GM in Sodium Chloride 0.9% 100 ML IVPB SCH (09:06)
[2019-06-20] MEDS: Furosemide 20 MG TAB PO SCH (09:06)
[2019-06-20] MEDS ORDERED: PROPOFOL 200 MG/20 ML VIAL ONE (09:55)
[2019-06-20] MEDS ORDERED: PHENYLEPHRINE-NS 100 MCG/ML 10 ML SYRINGE ONE ×3 (09:55→12:06)
[2019-06-20] MEDS ORDERED: Lidocaine 1% (PF) 30 ML VIAL ONE (10:22)
[2019-06-20] MEDS ORDERED: Heparin (Artline) 500 ML ONE (10:22)
[2019-06-20] MEDS ORDERED: Heparin 10,000 UNITS/1 ML VIAL ONE (10:23)
[2019-06-20] MEDS ORDERED: Propofol 500 MG/50 ML VIAL ONE ×2 (10:24→12:29)
[2019-06-20] MEDS ORDERED: Propofol 1,000 MG/100 ML VIAL IV ONE (10:24)
--- NOTE | 2019-06-20 10:26 | PDOC.MOPN ---
Interval History: Abdominal distention after mag citrate and enema. Denies nausea, pain. - Vital Signs Vital Signs: Vital Signs (12 hours) Temp Pulse Resp BP BP Pulse Ox 06/20/19 07:45 97.2 F L 80 16 116/78 06/20/19 04:00 97.4 F L 79 18 124/84 95 06/20/19 00:00 97.8 F 77 18 127/82 97 Weight Admit Weight 186 lb 4.65 oz Weight 186 lb 4.65 oz - Physical Exam General: Alert, Oriented x3, No acute distress HEENT: Atraumatic, PERRLA, EOMI, Mucous membr. moist/pink Lungs: Clear to auscultation, Normal air movement Cardiovascular: Regular rate, Normal S1, Normal S2, No murmurs, Gallops, Rubs Abdomen: Other (distented but nontender) Extremities: No clubbing, No cyanosis, No edema, Normal pulses, No tenderness/ swelling Skin: No rashes, No breakdown, No significant lesion Neurological: Normal gait, Normal speech, Strength at 5/5 X4 ext, Normal tone, Sensation intact, Cranial nerves 3-12 NL, Reflexes 2+ Psych/Mental Status: Mental status NL, Mood NL - Labs Result Diagrams: 06/20/19 05:07 06/20/19 05:07 Lab results: Laboratory Results - last 24 hr 06/20/19 05:07: WBC 12.0 H, RBC 2.98 L, Hgb 10.3 L, Hct 31.8 L, MCV 107.0 H, MCH 34.6 H, MCHC 32.4, RDW 14.7 H, Plt Count 142, MPV 8.3, Neutrophils % 51.5, Lymphocytes % 31.9, Monocytes % 13.6 H, Eosinophils % 2.4, Basophils % 0.5, Neutrophils # 6.2, Lymphocytes # 3.8 H, Monocytes # 1.6 H, Eosinophils # 0.3, Basophils # 0.1 06/20/19 05:07: Sodium 136, Potassium 3.8, Chloride 100, Carbon Dioxide 29, Anion Gap 11, BUN 21, Creatinine 1.23, Estimated GFR (MDRD) 57, Glucose 117 H, Calcium 8.2 06/19/19 09:58: Neutrophils % (Manual) 53, Band Neuts % (Manual) 5, Lymphocytes % (Manual) 25, Monocytes % (Manual) 14 H, Eosinophils % (Manual) 3, Neutrophils # Not Reportable, Lymphocytes # Not Reportable, Plt Morphology Comment Appears Decreased L, Polychromasia SLIGHT = 2-3 cells 06/19/19 09:58: Sodium 136, Potassium 3.6, Chloride 100, Carbon Dioxide 27, Anion Gap 13, BUN 22, Creatinine 1.27, Estimated GFR (MDRD) 55, Glucose 133 H, Calcium 7.8 Status: lab reviewed by me A/P - Problem (1) Constipation Current Visit: Yes Code(s): K59.00 - CONSTIPATION, UNSPECIFIED Status: Acute (2) Gastric cancer Current Visit: Yes Status: Acute - Plan Plan: Ablation today for afib continue meds for constipation Discuss with Dr. Valdez
[2019-06-20] MEDS ORDERED: Fentanyl 100 MCG/2 ML VIAL ONE (10:53)
--- NOTE | 2019-06-20 12:09 | CON ---
DATE OF CONSULTATION: 06/20/2019 This is Fabiola Christianson NP, dictating for Mal Reyes MD. REASON FOR CONSULTATION: Atrial flutter. HISTORY OF PRESENT ILLNESS: Mr. Mendieta is a 79-year-old gentleman, known to our practice for history of typical atrial flutter. His atrial arrhythmia was initially discovered when he was undergoing a routine annual exam with his primary care provider, Dr. Candelario. He was found to be in atrial flutter and was referred to Dr. Truong, and underwent a SILVIANO-guided cardioversion. He was transiently placed on Eliquis, but had significant GI bleed that required 5 units of PRBCs while inpatient at [facility]. He underwent upper and lower endoscopy and was found to have a gastric neoplasm. He underwent chemotherapy for this, which had been stopped due to recurrent resistant gastric and kidney lesions. He is currently off anticoagulation and is on flecainide for arrhythmia suppression. Mr. Mendieta was at home and had recently started another round of chemo with his 1st session. He began to experience low-grade fever, chills, and malaise, went to the hospital and was found to have some pneumonia and was started on Rocephin. His vital signs have been stable. He is currently on the medical floor. He remains off anticoagulation and there is some desire voice for him to undergo atrial flutter ablation during this hospitalization as he cannot tolerate long-term oral anticoagulation therapy. Mr. Mendieta is currently resting comfortably in bed. He denies any heart racing, palpitations, chest pain, pressure, syncope, near syncope, stroke, or stroke-like symptoms. Review of systems is positive for fatigue, occasional cough. No longer feeling febrile. He is reporting some constipation. REVIEW OF SYSTEMS: A 12-point review of systems is negative except that listed above in HPI. PAST MEDICAL HISTORY: 1. Typical atrial flutter, diagnosed in 04/2018, on flecainide for suppression. 2. GI bleed related to gastric neoplasm, preventing chronic anticoagulation. 3. Aortic dilation. 4. Hypertension. 5. Multiple falls and deconditioning. 6. History of basal cell carcinoma. 7. Left hip replacement. 8. Left rotator cuff tear. ALLERGIES: NO KNOWN DRUG ALLERGIES. HOME MEDICATIONS: 1. Lasix 20 mg daily. 2. Flecainide 50 mg q.12 h. 3. Tylenol as needed. 4. Protonix 40 mg b.i.d. 5. Centrum Silver daily. 6. Toprol-XL 12.5 mg daily. SOCIAL HISTORY: Denies smoking, tobacco, or alcohol. He is . He is retired. FAMILY HISTORY: Not contributory. OBJECTIVE: VITAL SIGNS: Temperature 97.2 degrees Fahrenheit, pulse 80, blood pressure 116/78, respirations 16, and oxygen is 95% on room air. GENERAL: The patient is alert and oriented. Speech is clear. Affect is appropriate. He is lying flat in bed, in no apparent distress at the time of the exam. HEENT: He is normocephalic and atraumatic. Sclerae anicteric. Oral mucosa is moist and pink with adequate dentition and partial dentures. NECK: Supple without lymphadenopathy. Carotids are without bruit. Trachea is midline. LUNGS: Clear to auscultation bilaterally without significant wheezes, crackles, or rhonchi. Respirations are even and unlabored with good bilateral excursion. HEART: Rate is irregularly irregular with crisp S1 and S2. ABDOMEN: Soft and nontender without palpable masses. Hepatojugular reflux is negative. EXTREMITIES: Warm and dry to touch without clubbing, cyanosis, or edema, though scattered. Contusions are noted across both upper and lower extremities. NEUROLOGIC: Grossly intact and nonfocal. Gait was not assessed. LABORATORY DATA: WBC 12, hemoglobin 10.3, hematocrit 31.8, and platelet count is 142. Chemistry: Potassium 3.8, creatinine 1.23. Liver enzymes are within normal limits. EKG shows sinus rhythm. IMPRESSION: 1. Mr. Mendieta is a pleasant 79-year-old gentleman with prior history of hypertension, preserved left ventricular systolic function, and typical atrial flutter that was treated with a SILVIANO cardioversion in 04/2018. He has been on flecainide for suppression ever since he was found to have a severe gastrointestinal bleed while transiently on Eliquis. He still has some likely chemotherapy related anemia, but no active bleeding issues have been reported. 2. Atypical atrial flutter. 3. CHADS-VASc score of 3 on the basis of advanced age and hypertension. Oral anticoagulation is indicated, though not tolerated due to gastrointestinal bleed and gastric neoplasm. 4. Gastric cancer with possible metastases. PLAN AND RECOMMENDATIONS: Mr. Mendieta appears to be doing fairly well during this hospital stay and is being treated for his pneumonia. His vital signs are stable. We once again spent some time discussing atrial flutter and possible treatment options. To reduce his chance of sustained atrial arrhythmias, performing a cavotricuspid isthmus ablation is reasonable. He understands that there is still a chance that he may go on to have atrial fibrillation even after CTI ablation is performed. He is not a candidate for pulmonary venous isolation if he cannot be anticoagulated. We discussed the risks, benefits, and alternatives to cavotricuspid isthmus ablation and the electrophysiology study. He understands the chance of infection, bleeding, stroke, tamponade, and recurrence. He is willing to proceed and we will make arrangements for later today. He has been without food and drink, but is taking his pills this morning. We will keep him n.p.o. for this procedure. Thank you for allowing me to participate in the care of this patient. Job ID: [id number]
[2019-06-20] MEDS ORDERED: Hydrocortisone Sod Succ/PF 100 mg/2 ml Vial ONE (12:20)
[2019-06-20] MEDS ORDERED: Phenylephrine HCL 10 MG/ML VIAL ONE ×2 (12:32)
[2019-06-20] MEDS ORDERED: DOPamine 400 MG/D5W 250 ML 250 ML ONE (12:49)
--- NOTE | 2019-06-20 14:09 | OP ---
DATE OF PROCEDURE: 06/20/2019 PROCEDURE PERFORMED: Electrophysiology study and radiofrequency ablation. REASON FOR PROCEDURE: Mr. Mendieta is a 79-year-old male with a history of typical, isthmus dependent atrial flutter, flecainide requiring suppression and subsequently developing GI bleed, requiring transfusions, found to have a gastric cancer. He cannot take anticoagulants at this time. He is maintaining sinus rhythm. Here for atrial flutter ablation, which appears to be typical isthmus dependent on EKG morphology. DESCRIPTION OF PROCEDURE: The patient received deep sedation by anesthesia specialist. After adequate level of sedation achieved, the left and right femoral veins were prepped and draped and anesthetized using subcutaneous lidocaine. Under ultrasound guidance, both femoral veins were cannulated. Initially, in the right femoral vein, two 8-Persian short sheaths were introduced. Due to tortuosity and difficult advancement of the catheters, a Preface sheath was attempted to be placed, but that was also difficult to advance, hence a 3rd access was obtained in the left femoral vein, through which a Preface sheath was used to advance a ThermoCool SFST catheter to the right atrium. 3D map of the right atrium, CS os, His bundle, and RV annular area was obtained. Following that, a decapolar catheter was advanced to the right atrium, His bundle, RV, and CS position. Pacing mapping and recording was performed in each location including pacing the left atrium via the CS. The baseline rhythm was sinus rhythm with RR interval 988 milliseconds, CA was 318 milliseconds, QRS 82 milliseconds, QT 483 milliseconds, sinus node recovery time was 1552, corrected sinus recovery time was 564 milliseconds. AV Wenckebach cycle length was 640 milliseconds. No VA conduction was seen. AV adeline ERP was measured at 600/580 milliseconds. No dual AV adeline physiology is demonstrated. Burst atrial pacing did not induce atrial or supraventricular arrhythmias. Hence the typical isthmus by history, the decision was made to proceed with the cavotricuspid isthmus ablation. CTI ablation was performed. Total of 3 minutes of radiofrequency energy over 9 sessions were delivered. Initially 40 wise, reduced to 30 wise due to impedance changes. We were able to prolong the transisthmus time initially 30 milliseconds to 170 milliseconds. Transisthmus block was demonstrated by longest transisthmus time adjacent to the ablation line. In the end, atrial flutter was not re-inducible either. Dopamine was administered and the patency of the isthmus line was again rechecked. At the end of the case, catheter was removed. Cardiac silhouette did not change. The patient remained stable. CONCLUSIONS: 1. Successful cavotricuspid isthmus ablation. 2. Abnormal sinus adeline and AV adeline function and borderline His-Purkinje system function is seen. 3. No inducible arrhythmias at the end of the case. PLAN: For now, we will attempt to discontinue flecainide and monitor for recurrent arrhythmias. Job ID: [id number] [facility]
[2019-06-20] MEDS ORDERED: Cephalexin 250 MG CAP PO SCH (15:00)
--- NOTE | 2019-06-20 17:12 | PDOC.HOSPP ---
- Subjective Encounter Date: 06/20/19 Encounter Time: 10:15 Subjective: pt up in bed, post ablation feels well. - Objective Vital Signs & Weight: Vital Signs (12 hours) Temp Pulse Resp BP BP Pulse Ox 06/20/19 15:05 97.4 F L 74 16 117/86 97 06/20/19 14:30 96.8 F L 59 L 16 129/85 97 06/20/19 08:00 97 06/20/19 07:45 97.2 F L 80 16 116/78 Weight Admit Weight 186 lb 4.65 oz Weight 186 lb 4.65 oz I&O: 06/19/19 06/20/19 06/21/19 06:59 06:59 06:59 Intake Total 1440 1040 Output Total 300 Balance 1440 740 Result Diagrams: 06/20/19 05:07 06/20/19 05:07 Hospitalist ROS - Review of Systems Cardiovascular: denies: chest pain, palpitations, orthopnea, paroxysmal noc. dyspnea, edema, light headedness, other Gastrointestinal: denies: nausea, vomiting, abdominal pain, diarrhea, constipation, melena, hematochezia, other Genitourinary: denies: dysuria, frequency, incontinence, hematuria, retention, other - Medication Medications: Active Medications Generic Name Dose Route Start Last Admin Trade Name Norbertq PRN Reason Stop Dose Admin Cephalexin 250 mg 06/20/19 15:00 06/20/19 15:50 Keflex PO 07/02/19 09:01 Not Given TID LINDA Furosemide 20 mg 06/17/19 09:00 06/20/19 09:06 Lasix PO 20 mg DAILY LINDA Administration Ceftriaxone Sodium 2 gm/ 100 mls @ 200 mls/hr 06/17/19 09:00 06/20/19 09:06 Sodium Chloride IVPB 100 mls Q24HR LINDA Administration Metoprolol Succinate 12.5 mg 06/17/19 09:00 06/20/19 09:05 Toprol Xl PO 12.5 mg DAILY LINDA Administration Pantoprazole Sodium 40 mg 06/17/19 09:00 06/20/19 09:06 Protonix PO 40 mg BID LINDA Administration Polyethylene Glycol 17 gm 06/18/19 21:00 06/20/19 09:05 Miralax PO 17 gm BID LINDA Administration - Exam Neck: negative: supple, symmetric, no JVD, no thyromegaly, no lymphadenopathy, no carotid bruit, JVD Heart: negative: RRR, no murmur, no gallops, no rubs, normal peripheral pulses, irregular, diminshed peripheral pulses, murmur present, II/IV, III/IV Respiratory: negative: CTAB, no wheezes, no rales, no ronchi, normal chest expansion, no tachypnea, normal percussion, rales, rhonchi, tachypneic, wheezes Gastrointestinal: soft, normal bowel sounds Hosp A/P (1) Pain in the abdomen Code(s): R10.9 - UNSPECIFIED ABDOMINAL PAIN Status: Acute (2) Gastric cancer Status: Acute (3) Right lower lobe pneumonia Code(s): J18.1 - LOBAR PNEUMONIA, UNSPECIFIED ORGANISM Status: Acute (4) Anemia Code(s): D64.9 - ANEMIA, UNSPECIFIED Status: Chronic (5) CKD (chronic kidney disease) Code(s): N18.9 - CHRONIC KIDNEY DISEASE, UNSPECIFIED Status: Chronic (6) Hydronephrosis Code(s): N13.30 - UNSPECIFIED HYDRONEPHROSIS Status: Acute - Plan pt's cecum has been dilated, will get ct abd/pel and give fleet enema. will continue abx for now. He has had only one bm last week. 06/18 will get urology to see pt for his left hydro no previous scan for comparison. He does have ckd. pt had a small bm.will give him another enema. if no improvement will rx magcitrate. 06/19 will order magcitrate x1, pt wants me to ask EP if the procedure can be done while he is in the hospital. will stop vanco and continue ceftriaxone. Pt has not had any fever. will try to wean him off oxygen. 06/20 s/p ablation, pt doing well. pt had a small bowel movement since his magcitrate. will get abd xray. mild elevated wbc will monitor. He does have low grade temp.
--- NOTE | 2019-06-20 18:45 | RAD ---
SUPINE AP ABDOMINAL RADIOGRAPH 06/20/19 HISTORY: Abdominal distention. Follow-up evaluation. COMPARISON: 06/17/19. FINDINGS: Again noted is gaseous distention of the colon, predominantly involving the ascending and transverse colon. The degree of distention in the region of the cecum has increased measuring 15 cm on this exam ination with previous measurement of approximately 12 cm. There is gas seen in the rectum and sigmoid colon. Postsurgical changes of the left hip are noted. There is right convexed rotoscoliosis lumbar spine. P hleboliths overlie the pelvis. No other interval change. IMPRESSION: Persistent dilatation and gaseous distention of a large portion of the colon but predominantly involv ing the ascending and transverse colon with the ascending colon measuring 15 cm. Surgical consultatio n is suggested if this has not been performed. POS: AMA
--- NOTE | 2019-06-20 22:40 | PRG ---
DATE OF SERVICE: 06/20/2019 CHIEF COMPLAINT: 1. Left-sided hydronephrosis and hydroureter extending to the level of the pelvic brim. 2. Declining glomerular filtration rate. 3. Stage T3 N2 gastric cancer with liver metastases and metastases to the pancreas, now with evidence of diffuse metastatic disease to abdomen and lungs. 4. Gastrointestinal obstruction. INTERVAL HISTORY: The patient has undergone an electrophysiology intervention by Dr. Reyes today. The patient is doing well with no complaints. He has nearly regular rhythm at the present time with occasional dropped beats. The patient is reporting some improvement in his bowel function over the last 24 hours, but is markedly distended. He reports passing some flatus, but no stool. PHYSICAL EXAMINATION: VITAL SIGNS: Temperature is 97.2, pulse 84, respirations 16, O2 saturation is 96%. Pulse rate is typically running in the range of 70 to 90, this afternoon. Blood pressure is 113/76. Review of the patient's cardiac monitoring shows nearly regular rhythm with occasional dropped beats. Appears to have a first-degree AV block. HEAD, EYES, EARS, NOSE, AND THROAT: Extraocular movements are intact. Sclerae anicteric. Oropharynx clear. NECK: Supple. LUNGS: Clear to auscultation bilaterally. CARDIAC: There is mostly regular rhythm present. ABDOMEN: Markedly distended with an extra bulge on the right upper quadrant area, which has been seen before and the patient was markedly distended. Percussion reveals increased resonance in all four quadrants. Bowel sounds are heard on auscultation as well. BACK: No flank tenderness noted or reported. LABORATORY DATA: White count is 12,000 today with hemoglobin of 10.3, hematocrit of 31.8, neutrophil percentage is at 51.5%. The ANC is not elevated. Blood urea nitrogen is 21, which is improved from yesterday. Creatinine is at 1.23, stable from yesterday. Glucose is at 117. ASSESSMENT AND PLAN: Left ureteral to bladder level obstruction. This raised concern for intrinsic bladder process versus extrinsic compression of the pelvic brim. Discussed with the patient merits of undergoing a Mag 3 nuclear medicine scan. Yesterday, he elected to proceed with that. This was ordered but has not yet been performed presumably due to his other studies and interventions being planned. The patient and I discussed previously that I would not consider taking him to the operating room until Dr. Reyes's procedures have been completed and they now have been. The patient appears to be reasonably stable. I discussed with Mr. Mendieta possibly proceeding to the operating room for cystoscopic evaluation, retrograde pyelography, and possible stent placement. He is in agreement with that plan and we are still going to try and obtain a nuclear medicine study while he is here, so we some idea of what kind of function might be expected from the patient's obstructed left kidney. Degree of obstruction can also be assessed by that method. Hopefully, we will be able to get that completed tomorrow and proceed to the operating room on Tuesday. I will make him n.p.o. on night for possible Tuesday morning case. Job ID: [id number]
[2019-06-21 05:24] LABS: Anion Gap 9 mmol/L (10-20); BUN (Urea Nitrogen) 22 mg/dL (8.4-25.7); Calc. Creatinine Clearance 58 mL/min (70-130); Carbon Dioxide 31 mmol/L (23-31); Chloride 101 mmol/L (98-107); Estimated GFR-MDRD 55; Glucose 166 mg/dL (83-110); Potassium 4.3 mmol/L (3.5-5.1); Sodium 137 mmol/L (136-145)
[2019-06-21 05:52] LABS: Band 3 % (5-11); Eosinophils 1 % (0-10); Hemoglobin 9.3 g/dL (14.0-18.0); Lymphocytes 16 % (21-51); MDiff Complete? YES; Mean Corpuscular HGB CONC 32.7 g/dL (32.0-36.0); Mean Corpuscular Hemoglobin 35.3 pg (27.0-31.0); Mean Platelet Volume 7.9 fL (7.4-10.4); Monocytes 19 % (0-10); Neutrophil 61 % (42-75); Platelet Count 122 thou/uL (130-400); RBC Distribution Width 14.5 % (11.5-14.5); Red Blood Cell (RBC) Count 2.62 mill/uL (4.70-6.10)
[2019-06-21] MEDS: Furosemide 20 MG TAB PO SCH (08:45)
[2019-06-21] MEDS: cefTRIAXone\\ROCEPHIN 2 GM in Sodium Chloride 0.9% 100 ML IVPB SCH (08:46)
[2019-06-21] MEDS: Polyethylene Glycol 3350 17 GM Packet PO SCH (08:51)
[2019-06-21] MEDS ORDERED: Ondansetron PF 4 MG/2 ML Vial ONE (09:30)
[2019-06-21] MEDS ORDERED: PROPOFOL 200 MG/20 ML VIAL ONE (09:30)
[2019-06-21] MEDS ORDERED: PHENYLEPHRINE-NS 100 MCG/ML 10 ML SYRINGE ONE (09:30)
[2019-06-21] MEDS ORDERED: Dexamethasone 20 MG/5 ML VIAL ONE (09:30)
[2019-06-21] MEDS ORDERED: Rocuronium Bromide 10 MG/ML (10ML VIAL) ONE (09:30)
--- NOTE | 2019-06-21 10:07 | PDOC.EP ---
- Subjective Date: 06/21/19 Time: 08:00 Interval History: follow up after CTI ablation on 06/20/2019. Feeling well this AM. no bleeding or pain at groin sites. No cardiac complaints this am - Review of Systems Respiratory: denies: cough, dry, hemoptysis, pleuritic pain, shortness of breath , SOB with excertion, sputum, wheezing, other Cardiology: denies: chest pain, edema, heart racing, light headedness, paroxysmal noc. dyspnea, orthopnea, palpitations, passing out, pleuritic pain, pressure, swelling, other - Objective Allergies/Adverse Reactions: Allergies Allergy/AdvReac Type Severity Reaction Status Date / Time No Known Allergies Allergy Verified 05/19/19 02:03 Current Medications Acetaminophen (Tylenol) 650 mg PO Q4H PRN PRN Reason: Headache/Fever/Mild Pain (1-3) Acetaminophen (Tylenol) 650 mg FL Q4H PRN PRN Reason: Headache/Fever/Mild Pain (1-3) Cephalexin (Keflex) 250 mg PO TID [facility] Stop: 07/02/19 09:01 Last Admin: 06/20/19 15:50 Dose: Not Given Furosemide (Lasix) 20 mg PO DAILY [facility] Last Admin: 06/21/19 08:45 Dose: 20 mg Ceftriaxone Sodium 2 gm/ (Sodium Chloride) 100 mls @ 200 mls/hr IVPB Q24HR [facility] Last Admin: 06/21/19 08:46 Dose: 100 mls Loratadine (Claritin) 5 mg PO DAILY PRN PRN Reason: ALLERGIES Metoprolol Succinate (Toprol Xl) 12.5 mg PO DAILY [facility] Last Admin: 06/21/19 08:46 Dose: 12.5 mg Pantoprazole Sodium (Protonix) 40 mg PO BID [facility] Last Admin: 06/21/19 08:45 Dose: 40 mg Polyethylene Glycol (Miralax) 17 gm PO BID [facility] Last Admin: 06/21/19 08:51 Dose: Not Given Sodium Chloride (Flush - Normal Saline) 10 ml IVF Q12HR PRN PRN Reason: Saline Flush Sodium Chloride (Flush - Normal Saline) 10 ml IVF PRN PRN PRN Reason: Saline Flush Vital Signs & Weight: Vital Signs Temp Pulse Resp BP BP Pulse Ox 06/21/19 08:26 97.8 F 89 18 103/60 96 01/09/20 03:23 97.5 F L 79 20 107/71 94 L 06/21/19 00:00 97.7 F 78 18 115/76 94 L Admit Weight 186 lb 4.65 oz Weight 186 lb 4.65 oz I/O: I/O 06/20/19 06/21/19 06/22/19 06:59 06:59 06:59 Intake Total 1040 820 Output Total 300 300 Balance 740 520 - Physical Exam General: alert & oriented x3, appears well, no apparent distress, speech clear, affect appropriate HEENT: mucus membranes moist, normocephaly Neck: supple neck, midline trachea, no JVD/HJR, no masses, no bruit, no lymphadenopathy, no thromegaly Cardiology: regular rate and rhythm, no murmur Lungs: clear to auscultation, normal breath sounds, normal exam, no rhonchi Neurology: cranial nerve 2-12 intact, grossly intact, coordination normal Abdomen: unremarkable, active bowel sounds, HJR negative Extremities: dry, strong pulses, warm Skin: groin sites stable, device site stable w/o swelling - Labs Result Diagrams: 06/21/19 04:36 06/21/19 04:36 - EKG Interpretation EKG Method: Telemetry EKG shows: Sinus rhythm - Assessment/Plan Assessment/Plan: 1. Atrial flutter - s/p CTI right atrial flutter ablation. - stopped flecainide. plan to resume if atrial fibrillation is seen - rhythm stable overnight 2. Indication of anticoagulation - cannot take due to prior severe GI bleeding while on eliquis related to gastric neoplasm 3. Gastric neoplasm -per oncology Stable post ablation. Unable to take OAC/ASA due to prior bleed and not cleared by GI to our knowledge. If atrial fibrillation is seen will likely resume flecainide but otherwise he may stop this. Will see back in clinic in 6 weeks. OK for DC by EP.
--- NOTE | 2019-06-21 11:07 | PDOC.MOPN ---
Interval History: doing well. Passing gas. - Vital Signs Vital Signs: Vital Signs (12 hours) Temp Pulse Resp BP BP Pulse Ox 06/21/19 08:26 97.8 F 89 18 103/60 96 06/21/19 03:23 97.5 F L 79 20 107/71 94 L 06/21/19 00:00 97.7 F 78 18 115/76 94 L Weight Admit Weight 186 lb 4.65 oz Weight 186 lb 4.65 oz - Physical Exam General: Alert, Oriented x3, No acute distress HEENT: Atraumatic, PERRLA, EOMI, Mucous membr. moist/pink Lungs: Clear to auscultation, Normal air movement Cardiovascular: Regular rate, Normal S1, Normal S2, No murmurs, Gallops, Rubs Abdomen: Other (distended but soft) Skin: No rashes, No breakdown, No significant lesion Neurological: Normal gait, Normal speech, Strength at 5/5 X4 ext, Normal tone, Sensation intact, Cranial nerves 3-12 NL, Reflexes 2+ Psych/Mental Status: Mental status NL, Mood NL - Labs Result Diagrams: 06/21/19 04:36 06/21/19 04:36 Lab results: Laboratory Results - last 24 hr 06/21/19 04:36: WBC 8.0, RBC 2.62 L, Hgb 9.3 L, Hct 28.3 L, MCV 108.0 H, MCH 35.3 H, MCHC 32.7, RDW 14.5, Plt Count 122 L, MPV 7.9, Neutrophils % (Manual) 61 , Band Neuts % (Manual) 3 L, Lymphocytes % (Manual) 16 L, Monocytes % (Manual) 19 H, Eosinophils % (Manual) 1 06/21/19 04:36: Sodium 137, Potassium 4.3, Chloride 101, Carbon Dioxide 31, Anion Gap 9 L, BUN 22, Creatinine 1.26, Estimated GFR (MDRD) 55, Glucose 166 H, Calcium 8.0 Status: lab reviewed by me A/P - Problem (1) Constipation Current Visit: Yes Code(s): K59.00 - CONSTIPATION, UNSPECIFIED Status: Acute (2) Gastric cancer Current Visit: Yes Status: Acute - Plan Plan: continue bowel regimen. Cardiac and renal workup continues will follow during hospitalization.
[2019-06-21] MEDS ORDERED: EPINEPHrine 1 MG/10 ML Abboject SYRINGE ONE (11:24)
[2019-06-21] MEDS ORDERED: Naloxone HCl 0.4 mg/ml Vial ONE ×3 (11:24→22:55)
[2019-06-21] MEDS ORDERED: Furosemide 40 MG/4 ML VIAL ONE (13:15)
--- NOTE | 2019-06-21 13:50 | NM ---
RADIONUCLIDE DIVERTICULAR RENOGRAM: HISTORY: Gastric cancer, left-sided hydronephrosis. RADIOPHARMACEUTICAL: 10 mCi Technetium 99m-MAG3 injected intravenously. DIURETIC: 40 mg IV Lasix was administered 15 minutes prior to the injection of the radiopharmaceutical. The pa tient has a Hammer catheter in place during imaging. FINDINGS: There is slow and decreased tracer uptake by the left kidney compared to the right. The last image o f the renogram demonstrates no tracer material in the pelvocaliceal systems on the left. There is no rmal tracer uptake and excretion by the right kidney into the ureter and the urinary bladder. The differential function measures 95.5% on the right and 4.5% on the left. A downsloping right hal gram pelvis is seen. The left renogram curve remains close to the X-axis with mild slow upsloping. Since there is no ecretion of tracer material in the left pelvicalyceal systems, the possibility of h igh-grade obstruction cannot be excluded. IMPRESSION: Markedly decreased flow and function of the left kidney. POS: [facility]
--- NOTE | 2019-06-21 13:53 | RAD ---
Acute abdominal series INDICATION: Abdominal pain. COMPARISON: CT the abdomen and pelvis dated June 17, 2015 FINDINGS: CHEST: LUNGS: There is bibasilar atelectasis. Cardiomediastinal silhouette: Normal. Pleural effusion or pneumothorax: Negative. Pneumoperitoneum: Negative. ABDOMEN: Bowel gas pattern: The prominent gas-filled loops of colon within the abdomen are stable. No evidence to suggest obstruction. Gas seen at the level of rectum. Abnormal calcifications: None Osseous structures: The ununited fracture deformity involving the right posterior lateral chest wall is stable. There is a left total hip prosthesis. There is dextroscoliosis of lumbar spine. Additional findings: None. IMPRESSION: 1. Prominent gas-filled loops of colon are stable to the comparison examination. 2. Bibasilar atelectasis.
[2019-06-21] MEDS ORDERED: MD-Gastroview 120 ML BOT ONE (14:22)
[2019-06-21] MEDS ORDERED: Ropivacaine 0.5% HCl/PF (150 MG/30 ML VIAL) ONE (14:33)
[2019-06-21] MEDS ORDERED: Ropivacaine 0.2% HCl/PF (40 MG/20 ML VIAL) ONE (14:33)
--- NOTE | 2019-06-21 14:36 | PDOC.HOSPP ---
- Subjective Encounter Date: 06/21/19 Encounter Time: 13:00 Subjective: pt seen in the hallway going down for abdomen xay - Objective Vital Signs & Weight: Vital Signs (12 hours) Temp Pulse Resp BP BP Pulse Ox 06/21/19 11:06 97.4 F L 83 17 110/76 94 L 06/21/19 08:26 97.8 F 89 18 103/60 96 06/21/19 03:23 97.5 F L 79 20 107/71 94 L Weight Admit Weight 186 lb 4.65 oz Weight 186 lb 4.65 oz I&O: 06/20/19 06/21/19 06/22/19 06:59 06:59 06:59 Intake Total 1040 820 Output Total 300 300 Balance 740 520 Result Diagrams: 06/21/19 04:36 06/21/19 04:36 Hospitalist ROS - Medication Medications: Active Medications Generic Name Dose Route Start Last Admin Trade Name Freq PRN Reason Stop Dose Admin Cephalexin 250 mg 06/20/19 15:00 06/20/19 15:50 Keflex PO 07/02/19 09:01 Not Given TID LINDA Furosemide 20 mg 06/17/19 09:00 06/21/19 08:45 Lasix PO 20 mg DAILY [facility] Administration Ceftriaxone Sodium 2 gm/ 100 mls @ 200 mls/hr 06/17/19 09:00 06/21/19 08:46 Sodium Chloride IVPB 100 mls Q24HR [facility] Administration Metoprolol Succinate 12.5 mg 06/17/19 09:00 06/21/19 08:46 Toprol Xl PO 12.5 mg DAILY [facility] Administration Pantoprazole Sodium 40 mg 06/17/19 09:00 06/21/19 08:45 Protonix PO 40 mg BID [facility] Administration Polyethylene Glycol 17 gm 06/18/19 21:00 06/21/19 08:51 Miralax PO Not Given BID [facility] Hosp A/P (1) Pain in the abdomen Code(s): R10.9 - UNSPECIFIED ABDOMINAL PAIN Status: Acute (2) Gastric cancer Status: Acute (3) Right lower lobe pneumonia Code(s): J18.1 - LOBAR PNEUMONIA, UNSPECIFIED ORGANISM Status: Acute (4) Anemia Code(s): D64.9 - ANEMIA, UNSPECIFIED Status: Chronic (5) CKD (chronic kidney disease) Code(s): N18.9 - CHRONIC KIDNEY DISEASE, UNSPECIFIED Status: Chronic (6) Hydronephrosis Code(s): N13.30 - UNSPECIFIED HYDRONEPHROSIS Status: Acute - Plan pt's cecum has been dilated, will get ct abd/pel and give fleet enema. will continue abx for now. He has had only one bm last week. 06/18 will get urology to see pt for his left hydro no previous scan for comparison. He does have ckd. pt had a small bm.will give him another enema. if no improvement will rx magcitrate. 06/19 will order magcitrate x1, pt wants me to ask EP if the procedure can be done while he is in the hospital. will stop vanco and continue ceftriaxone. Pt has not had any fever. will try to wean him off oxygen. 06/20 s/p ablation, pt doing well. pt had a small bowel movement since his magcitrate. will get abd xray. mild elevated wbc will monitor. He does have low grade temp. 06/21 unable to examine pt, he has been off and then went to OR. abd xray done that indicated distended bowel, surgical consultation who ordered a barium indicated obst. pt has gastric cancer. gi was also consulted. pt was taken to surgery.
[2019-06-21] MEDS ORDERED: Fentanyl 250 MCG/5 ML VIAL ONE (16:11)
[2019-06-21] MEDS ORDERED: HYDROmorphone 0.5 MG/0.5 ML SYRINGE ONE (16:12)
[2019-06-21] MEDS ORDERED: Midazolam HCl 2 mg/2 ml Vial ONE (16:12)
[2019-06-21] MEDS ORDERED: SUGAMMADEX SODIUM 200 MG/2 ML VIAL ONE (16:12)
[2019-06-21] MEDS ORDERED: Piperacillin/Tazobactam 4.5 GM in Sodium Chloride 0.9% 100 ML IVPB SCH (16:15)
--- NOTE | 2019-06-21 16:16 | CON ---
DATE OF CONSULTATION: HISTORY OF PRESENT ILLNESS: Charlie Mendieta is a 79-year-old male with metastatic gastric cancer. This has been present since 2018. He presented with atrial fibrillation, atrial flutter on his EKG, referred to Dr. Truong, who underwent cardiac catheterization and evaluation. During the evaluation, he developed bleeding in [facility], where he required transfusion, reversal of his anticoagulation. The patient had cessation of his bleeding after multiple transfusions. The patient underwent colonoscopy and EGD in July 2018. He was diagnosed with cancer and referred to [facility], where he underwent endoscopic ultrasound revealing liver and renal metastasis. He has been treated by Dr. Valdez with chemotherapy, has a MediPort in place. He reports for the last 2 months, he has been having abdominal distention. He has been hospitalized and seen by Dr. Reyes, has undergone evaluations for electrophysiology and ablation. He has been seen by Dr. Valdez. He has been admitted since 06/17/2019. I have asked to see him today after undergoing CAT scan of abdomen and pelvis 06/17/2019, noting some changes in his upper left abdomen related to his gastric cancer and possible partial obstruction of his transverse colon. Plain x-rays and CAT scan reveal proximal right colon distention and distal decompression. The patient has not had a significant bowel movement in several weeks. He has passed a small amount of flatus. He remains distended. Plain x-rays obtained today, correlated with above interpretation and planning out this for Gastrografin enema, after which, if he is obstructed as expected, he will need an emergent laparotomy for palliative decompression and colostomy. He understands these issues and consents. ALLERGIES: NONE. SOCIAL HISTORY: Tobacco, alcohol cessation 10 years ago. MEDICATIONS: 1. Furosemide. 2. Flecainide. 3. Protonix. 4. Multivitamin. 5. Metoprolol. 6. MiraLAX. 7. Ceftriaxone. PAST SURGICAL HISTORY: MediPort, upper and lower endoscopy, ablations. PAST MEDICAL HISTORY: Atrial fibrillation/flutter; gastric adenocarcinoma, metastatic; GERD. PHYSICAL EXAMINATION: VITAL SIGNS: Height 6 feet and 5 inches, weight 186 pounds, and 22 BMI. Temperature 97.4, pulse 83, and blood pressure 110/76. HEAD, EARS, EYES, NOSE, and THROAT: Unremarkable. LUNGS: Clear to auscultation. CARDIAC: Regular rate and rhythm without murmur or gallop. ABDOMEN: Soft, distended, consistent with colon obstruction at the distal transverse colon, splenic flexure. EXTREMITIES: Unremarkable. LABORATORY DATA: Hemoglobin 9. Renal function normal. Platelet count 123,000. ASSESSMENT AND PLAN: Suspect colon obstruction. He had a colonoscopy in July last year. He has metastatic disease with gastric cancer, advanced. We will await Gastrografin enema, but he likely needs intervention and we will await that study. I have explained to him the risks of operation, infection, bleeding, reoperation, need for colostomy. Questions answered. Job ID: [id number]
--- NOTE | 2019-06-21 16:19 | RAD ---
Barium enema solid column HISTORY: Gastric cancer. Colon obstruction. FINDINGS: A 1:1 mixture of warm water: Gastrografin was administered per rectum. The rectum was initi ally decompressed. Liquid contrast easily distended the rectum, but as it entered the lower sigmoid colon, the contrast stopped flowing. Some inspissated stool is seen within the decompressed distal si gmoid colon. A mass is not reliably demonstrated. The initially placed contrast was drained. Prior CT was reviewed. On that CT, there is long segment i nflammation of the left colon extending to the sigmoid colon. While there may be a mass at the level of the splenic flexure, the CT shows no evidence of mass at the sigmoid colon. A second vigorous attempt was made to pass the contrast liquid through the sigmoid colon, but was sti ll unsuccessful. Excess contrast was drained. Patient tolerated the procedure well and was transferred to pre in unc hanged condition. IMPRESSION: High-grade obstruction at the distal sigmoid colon. Cause is not evident. Findings were called to Dr. Ryan at the time of the exam. Code CR.
[2019-06-21] MEDS ORDERED: Fentanyl 100 MCG/2 ML VIAL ONE (16:30)
[2019-06-21] MEDS ORDERED: Bupivacaine PF 0.5% 30 ML VIAL ONE (16:31)
[2019-06-21] MEDS ORDERED: Sodium Chloride 0.9% 20 ML ONE (17:34)
[2019-06-21] MEDS ORDERED: Phenylephrine HCL 10 MG/ML VIAL ONE (17:34)
[2019-06-21] MEDS ORDERED: Rocuronium Bromide 50 MG/5 ML VIAL ONE (18:23)
[2019-06-21] MEDS ORDERED: Albumin 5% 500 ML ONE (18:33)
[2019-06-21] MEDS ORDERED: Ondansetron HCl/PF 4 MG/2 ML Vial IVP PRN (20:05)
[2019-06-21] MEDS ORDERED: Acetaminophen 500 MG TAB PO PRN (20:18)
[2019-06-21] MEDS ORDERED: Sodium Chloride 0.9% (PF) 10 ML VIAL FS PRN (20:25)
[2019-06-21] MEDS ORDERED: Lactated Ringer's 1,000 ML IV SCH (20:30)
--- NOTE | 2019-06-21 20:47 | RAD ---
EXAM: CHEST ONE VIEW HISTORY: Central line placement. Recent surgery COMPARISON: 06/21/2019 at 1335 hours FINDINGS: Right sided Mediport catheter remains place and unchanged in position. There has been interval placem ent of a left subclavian central venous catheter with tip overlying the expected location of the proximal SVC. There is bibasilar atelectasis. No pneumothorax is appreciated on this examination, and there is no pleural effusion. Free intraperitoneal gas is seen beneath each hemidiaphragm likely related to recent surgery. Gaseous distention of loops of bowel in the upper abdomen are improved. IMPRESSION: 1. Interval placement of left subclavian central venous catheter with tip overlying the expected loca tion of the proximal SVC. No pneumothorax is seen. 2. Free intraperitoneal gas beneath each hemidiaphragm likely due to recent surgery. 3. Bibasilar atelectasis. 4. Above findings concerning free peritoneal gas beneath each hemidiaphragm was discussed with Dr. Avalos on 06/21/2019 at 2043 hours.
[2019-06-21] MEDS: Enoxaparin Sodium 40 MG/0.4 ML SYRINGE SC SCH (22:05)
[2019-06-21 23:00] LABS: Actual Bicarbonate (HCO3a) 27.9 mEq/L (22-28); Base Excess (BEa) -1.7 mEq/L (-2.0 to +3.0); Calcium, Ionized 1.14 mmol/L (1.12-1.30); Carboxyhemoglobin (COHb) 1.1 gm% (0.0-3.0); Hemoglobin (Hb) 10.9 g/dL (14.0-18.0); O2 Tension (PaO2) 136.8 mmHg (> 70.0); Potassium - ABG Lab 4.03 mmol/L (3.70-5.30)
[2019-06-21 23:01] LABS: CO2 Tension 76.6 mmHg (35.0-45.0); Puncture Site L RADIAL; pH, Arterial 7.18 (7.35-7.45)
[2019-06-21] MEDS ORDERED: Norepinephrine 8 MG/0.9% NS 250 ML ONE (23:22)
[2019-06-21] MEDS ORDERED: Norepinephrine 8 MG/0.9% NS 250 ML IVPB SCH (23:26)
[2019-06-21] MEDS ORDERED: Propofol BOLUS 1,000 MG/100 ML VIAL IV PRN (23:37)
[2019-06-21] MEDS ORDERED: Propofol 1,000 MG/100 ML VIAL IV PRN (23:37)
[2019-06-21] MEDS ORDERED: DISCONTINUE PREVIOUS NARCOTIC PAIN MEDICATIONS AND BENZODIAZEPINES FS SCH (23:37)
[2019-06-21] MEDS ORDERED: Morphine 2 MG/ML SYRINGE SLOW IVP PRN (23:37)
[2019-06-21] MEDS ORDERED: Fentanyl BOLUS 250 ML IVPB PRN (23:37)
[2019-06-21] MEDS ORDERED: Lorazepam 2 MG/ML VIAL SLOW IVP PRN (23:37)
[2019-06-21] MEDS ORDERED: fentaNYL Citrate/PF 2,000 MCG in Sodium Chloride 0.9% 60 ML IV SCH (23:37)
--- NOTE | 2019-06-21 23:40 | PDOC.EVN ---
Event Note - Event Note Event Note: HOSPITALIST EVENT NOTE code green and then code blue called for patient who never lost pulse with decreased responsiveness and agonal breathing returned from OR and PACU about 1-2 hours prior after SBO and with reported history of metastatic cancer. no IV opioids reportedly given in PACU received IV fentanyl 300mcg and sedatives and levophed intraoperatively due to hypotension (per nursing report) at bedside, patient awake with pinpoint pupils and agonal breathing and not responsive to noxious or verbal stimuli and being bagged sa02 100% with bp 90/ 60s. strong radial pulse noted given IV narcan 0.8 mg STAT with transient improvement in mentation, pupil size improved and intermittent improvement in mentation flailing arms and following basic commands. ER doctors at bedside. stat ABG obtained, results pending ( noted to have respiratory acidosis with hypercapnia) after few minutes noted to have repeat agonal breathing although appeared to be awake but somnolent. i spoke with patient about need to electively intubated and he nodded his yead "YES" in agreement repeat IV narcan given and patient electively intubated with etomidate and rocuronium, received epinephrine after intubation due to hypotension and started on levophed drip i spoke with surgeon dr. david benson supervisor spoke with spouse will follow post intubation cxr for ETT position Dr. Samir Cruz
--- NOTE | 2019-06-21 23:47 | RAD ---
PORTABLE AP CHEST X-RAY: 06/21/19 HISTORY: Post intubation. COMPARISON: 06/21/19 at 2004 hours. FINDINGS: There has been interval placement of an endotracheal tube with the tip overlying the T1-2 level and w ell above the level of the garret. Right sided Mediport remains in place. The left subclavian central venous catheters also stable in position. Pacing pad overlies the left upper quadrant. There is incr eased density at the left lung base probably attributable to atelectasis. Pulmonary vasculature is wi thin normal limits. The cardiac silhouette is magnified by patient rotation. Free intraperitoneal gas beneath the hemidiaphragms is less well delineated on this study. IMPRESSION: 1. Endotracheal tube noted in place which overlies the T1-2 level. 2. Left subclavian central venous catheter is stable in position. 3. Atelectasis left lung base. 4. Free intraperitoneal gas beneath the hemidiaphragms less well delineated on this supine image . POS: [facility]
--- NOTE | 2019-06-22 02:06 | OP ---
DATE OF PROCEDURE: 06/21/2019 PREOPERATIVE DIAGNOSES: Metastatic gastric cancer with left colon obstruction. POSTOPERATIVE DIAGNOSES: Metastatic gastric cancer with left colon obstruction, extensive carcinomatosis, 4750 mL of ascites, peritoneal carcinomatosis, large metastatic focus in the omentum. Note, Anesthesia, Dr. Portillo placed a left subclavian vein central line prior to the procedure. PROCEDURES PERFORMED: Exploratory laparotomy, resection of large omental implant to enable mobilization of the transverse colon and colostomy, loop colostomy in left upper quadrant, distal transverse colon, and SHAN wound VAC. ANESTHESIA: General anesthesia, TAP block. ESTIMATED BLOOD LOSS: 150 mL BLOOD TRANSFUSION: None. DESCRIPTION OF PROCEDURE: The patient was taken to the operating room, where under general anesthesia and TAP block, Dr. Portillo of Anesthesia placed a left subclavian vein central line. The abdomen was prepared with ChloraPrep and draped in routine fashion. An incision was made, carried down to the skin ans subcutaneous tissue, centered about the midline, directed more cephalad. There was between 4750 to 5 liters of ascites evacuated. There was carcinomatosis. There was a tumor nodule about the umbilicus excised, submitted. There was a large tumor burden in the omentum and carcinomatosis throughout the peritoneal cavity. The small bowel was not obstructed. There was abundant disease in the pelvis and left gutter. The left colon had a little bit of gas, but was not distended. The colon proximal to the splenic flexure was markedly distended. There was abundant metastatic disease in the splenic flexure and spleen, left upper quadrant. It was felt best to try to perform a loop colostomy. I had difficulty mobilizing the distal transverse colon and mid transverse colon because of tumor burden. Carefully enabled this by resecting a large omental tumor mass, mobilizing the mid transverse colon. I then took down the gastrocolic ligament to further mobilize the distal transverse colon. The mesentery of the distal transverse colon was then mobilized in avascular plane to further facilitate this. I then was able to accomplish enough mobilization to enable a colostomy in the left upper quadrant. The colon was markedly distended. To facilitate mobilization, a pursestring suture was placed at the anticipated colostomy site and using sterile technique and careful control, the colon decompressed gas and about 2 L of stool. There was no soilage. I then removed the suction, discarded it, closed the pursestring suture, and used a Betadine laparotomy pad to clean this area. I did thorough mobilization of the colon. Sponge and needle counts were correct and good hemostasis was noted. The defect was created circularly in the left upper quadrant skin and an anterior rectus fascia cruciate incision was made and the rectus muscle was split. The posterior fascia incised, and the segment of the mid distal transverse colon was brought out. Sponge and needle counts were correct. Midline fascia was closed with continuous suture of #1 PDS. Skin and subcutaneous tissues were irrigated thoroughly. Skin approximated arpan. SHAN wound VAC was placed. At this point, colostomy maturation was undertaken by removing the pursestring suture, making the colotomy a little larger, and 4-quadrant sutures of 3-0 silk was used to secure the seromuscular area of the colon to the fascia anteriorly. Colostomy maturation sutures were placed in four quadrants, turned both sides and everting the colostomy. Simple sutures of 3-0 Vicryl were used to complete maturation of the colostomy. Colostomy appliance was secured. The patient tolerated the procedure well and transferred to the recovery room in stable condition. Job ID: [id number]
[2019-06-22] MEDS ORDERED: Lactated Ringer's 1,000 ML IV SCH (02:45)
[2019-06-22 04:07] LABS: ALT (SGPT) 11 U/L (8-55); AST (SGOT) 25 U/L (5-34); Albumin 2.4 g/dL (3.4-4.8); Alkaline Phosphatase 128 U/L (40-110); Anion Gap 16 mmol/L (10-20); BUN (Urea Nitrogen) 25 mg/dL (8.4-25.7); Calc. Creatinine Clearance 52 mL/min (70-130); Calcium 7.7 mg/dL (7.8-10.44); Carbon Dioxide 24 mmol/L (23-31); Chloride 100 mmol/L (98-107); Estimated GFR-MDRD 49; Globulin 2.5 g/dL (2.4-3.5); Glucose 167 mg/dL (83-110); Potassium 4.5 mmol/L (3.5-5.1); Protein, Total 4.9 g/dL (5.8-8.1); Sodium 135 mmol/L (136-145)
[2019-06-22 04:20] LABS: Band 38 % (5-11); Hemoglobin 10.9 g/dL (14.0-18.0); Lymphocytes 10 % (21-51); MDiff Complete? YES; Mean Corpuscular HGB CONC 31.5 g/dL (32.0-36.0); Mean Corpuscular Hemoglobin 33.8 pg (27.0-31.0); Mean Platelet Volume 8.3 fL (7.4-10.4); Metamyelocyte 1 % (0-0); Monocytes 2 % (0-10); Myelocyte 1 % (0-0); Neutrophil 48 % (42-75); Platelet Count 179 thou/uL (130-400); Platelet Morphology Comment Appears Adequate; RBC Distribution Width 14.7 % (11.5-14.5); Red Blood Cell (RBC) Count 3.22 mill/uL (4.70-6.10); White Blood Cell (WBC) Count 39.6 thou/uL (4.8-10.8)
[2019-06-22] MEDS: Ketorolac Tromethamine 30 MG/ML VIAL IVP SCH ×5 (05:43→23:39)
[2019-06-22] MEDS ORDERED: Sodium Chloride 0.9% 500 ML IV SCH (06:30)
[2019-06-22] MEDS ORDERED: Sodium Chloride 0.9% 500 ML IVPB PRN (06:30)
[2019-06-22 06:48] LABS: Actual Bicarbonate (HCO3a) 21.4 mEq/L (22-28); Base Excess (BEa) -2.8 mEq/L (-2.0 to +3.0); CO2 Tension 34.9 mmHg (35.0-45.0); Calcium, Ionized 1.08 mmol/L (1.12-1.30); Hemoglobin (Hb) 10.3 g/dL (14.0-18.0); O2 Tension (PaO2) 93.6 mmHg (> 70.0); Potassium - ABG Lab 3.99 mmol/L (3.70-5.30); pH, Arterial 7.41 (7.35-7.45)
[2019-06-22 06:56] LABS: ALV-art Gradient 147.975 (0-20); Puncture Site RBRACH
[2019-06-22] MEDS ORDERED: Ventilator Sedation Protocol 1 EACH FS SCH (07:15)
--- NOTE | 2019-06-22 08:38 | RAD ---
Portable frontal chest radiograph: 06/22/2019 COMPARISON: 06/21/2019 HISTORY: Reevaluate endotracheal tube. FINDINGS: There is no endotracheal tube present consistent with interval extubation. There is a right -sided Port-A-Cath and a left-sided vascular catheter, stable. Hazy increased density in both lung bases again noted suggesting a combination of nonspecific airspace disease and bilateral pleural effu sions. IMPRESSION: Nonspecific stable pleural-parenchymal opacity in the lung bases. Endotracheal tube is no t visualized on this examination suggesting interval removal.
[2019-06-22] MEDS: Lactated Ringer's 1,000 ML IV SCH ×3 (08:43→23:40)
[2019-06-22] MEDS: Pantoprazole 40 MG VIAL IVP SCH (08:47)
[2019-06-22] MEDS: cefTRIAXone\\ROCEPHIN 2 GM in Sodium Chloride 0.9% 100 ML IVPB SCH (08:49)
--- NOTE | 2019-06-22 10:02 | CON ---
DATE OF CONSULTATION: HISTORY OF PRESENT ILLNESS: This is a 79-year-old gentleman, who is status post surgery on 06/21/2019. He then was on a surgical floor when a code blue was called in and he was intubated. His gases showed respiratory failure. Dr. Ryan was the surgeon. This morning, he was extubated by Dr. Ryan since he is awake, alert, and responsive. His pulse is 97, blood pressure is 92/57, sats are 100% on 2 L, respiratory rate 18. He is awake, alert, and responsive. Except for abdominal pain, he denies any other issues. PAST MEDICAL HISTORY: Pertinent for previous diagnosis of SVT, flutter, previous history of gastric neoplasm, chronic anticoagulation, and hypertension. PAST SURGICAL HISTORY: Left hip, left rotator, history of lap, basal cell carcinoma. HOME MEDICATIONS: 1. Protonix. 2. Vitamin. 3. Toprol-XL. 4. Lasix. 5. Flecainide. 6. He is now on Zosyn. SOCIAL HISTORY: No alcohol and tobacco abuse. ALLERGIES: NONE. REVIEW OF SYSTEMS: Unremarkable. PHYSICAL EXAMINATION: VITAL SIGNS: As noted, pulse 98, blood pressure 96/77, respiratory rate 10. CHEST: No wheezing or crackles. CARDIAC: Normal S1 and S2. No gallops. ABDOMEN: No masses. LABORATORY DATA: White count of 39,000, H and H of 10/34, platelet count is normal. PO2 this morning was 93, PCO2 is 34, pH 7.41 on a vent. PH was 7.18 prior to extubation with a pCO2 of 76, suggesting hypoventilation. Creatinine 1.41. IMPRESSION: Lap, metastatic disease, appears gastric carcinoma, renal failure, supraventricular tachycardia, leukocytosis, and respiratory failure secondary to probably narcotics. We will continue Zosyn as prescribed. Continue neb treatments, supportive care, PT. Pulmonary/Critical Care will follow in the ICU. 70 minutes consultation note, 50% direct patient care. Job ID: [id number]
--- NOTE | 2019-06-22 12:30 | PDOC.EP ---
- Subjective Date: 06/22/19 Time: 12:29 Interval History: follow up for arrhythmia management. Feeling tired this AM. Had eventful evening with respiratory distress post up, requiring narcan. Remains in ICU but now stable. No cardiac concerns or complaints. - Review of Systems Constitutional: reports: weakness. denies: chills, fever, malaise, sweats Respiratory: denies: cough, dry, hemoptysis, shortness of breath Cardiology: denies: chest pain, edema, heart racing, light headedness, palpitations, passing out Gastrointestinal: reports: abdominal pain, constipation - Objective Allergies/Adverse Reactions: Allergies Allergy/AdvReac Type Severity Reaction Status Date / Time No Known Allergies Allergy Verified 05/19/19 02:03 Current Medications Acetaminophen (Tylenol) 1,000 mg PO Q6H PRN PRN Reason: Moderate to Severe Pain (6-10) Albumin Human (Albumin 25%) 25 gm IVPB Q6HR [facility] Stop: 06/23/19 12:01 Albuterol/Ipratropium (Duoneb) 3 ml NEB [id number] [facility] Last Admin: 06/22/19 10:50 Dose: 3 ml Enoxaparin Sodium (Lovenox) 40 mg SC 2100 [facility] Last Admin: 06/21/19 22:05 Dose: 40 mg Ceftriaxone Sodium 2 gm/ (Sodium Chloride) 100 mls @ 200 mls/hr IVPB Q24HR [facility] Last Admin: 06/22/19 08:49 Dose: 100 mls Piperacillin Sod/Tazobactam (Sod 4.5 gm/ Sodium Chloride) 100 mls @ 200 mls/hr IVPB WILLCALL [facility] Stop: 06/22/19 16:16 Norepinephrine Bitartrate (Levophed) 250 mls @ 0 mls/hr IVPB INF [facility]; Protocol Fentanyl Citrate 2,000 mcg/ (Sodium Chloride) 100 mls @ 0 mls/hr IV INF [facility]DA; Protocol Stop: 07/21/19 23:37 Fentanyl Citrate (Fentanyl Bolus) 250 mls @ 0 mls/hr IVPB PRN PRN PRN Reason: Breakthrough pain/agitation Stop: 07/21/19 23:37 Lactated Ringer's (Lactated Ringer's) 1,000 mls @ 125 mls/hr IV .Q8H [facility] Last Admin: 06/22/19 08:43 Dose: 1,000 mls Ketorolac Tromethamine (Toradol) 15 mg IVP Q6HR [facility] Stop: 06/26/19 23:59 Last Admin: 06/22/19 11:43 Dose: 15 mg Lorazepam (Ativan) 2 mg SLOW IVP Q1H PRN PRN Reason: Breakthrough agitation Stop: 07/21/19 23:37 Metoprolol Succinate (Toprol Xl) 12.5 mg PO DAILY [facility] Last Admin: 06/22/19 08:47 Dose: Not Given Morphine Sulfate (Morphine) 2 mg SLOW IVP Q1H PRN PRN Reason: BREAKTHROUGH PAIN/Agitation Stop: 07/21/19 23:37 Pantoprazole Sodium (Protonix) 40 mg IVP DAILY [facility] Last Admin: 06/22/19 08:47 Dose: 40 mg Propofol (Diprivan) 1,000 mg IV INF PRN; Protocol PRN Reason: TO ACHIEVE GOAL RASS Stop: 07/21/19 23:37 Last Admin: 06/22/19 00:16 Dose: 1,000 mg Propofol (Diprivan Bolus) 20 mg IV Q5MIN PRN PRN Reason: BREAKTHROUGH AGITATION Stop: 07/21/19 23:37 Sodium Chloride (Flush - Normal Saline) 10 ml IVF Q12HR PRN PRN Reason: Saline Flush Sodium Chloride (Flush - Normal Saline) 10 ml IVF PRN PRN PRN Reason: Saline Flush Sodium Chloride (Normal Saline Pf) 10 ml FS PRN PRN PRN Reason: RECONSTITUTION Vital Signs & Weight: Vital Signs Temp Pulse Resp Pulse Ox 06/22/19 12:00 98.8 F 100 06/22/19 10:50 105 H 18 100 06/22/19 08:00 12 100 06/22/19 07:00 97.8 F 06/22/19 06:55 104 H 06/22/19 04:59 106 H 06/22/19 04:00 06/22/19 03:00 98.1 F 06/22/19 02:15 107 H 06/22/19 02:00 20 06/22/19 01:51 98 Admit Weight 186 lb 4.65 oz Weight 171 lb 1.259 oz I/O: I/O 06/21/19 06/22/19 06/23/19 06:59 06:59 06:59 Intake Total 820 0 Output Total 300 220 70 Balance 520 -220 -70 - Medication Contraindications No Anticoagulant reason: Anticoagulant not tolerated - Physical Exam General: alert & oriented x3, appears well, no apparent distress, speech clear, affect appropriate HEENT: mucus membranes moist, normocephaly, EOMI, pallor Neck: supple neck, midline trachea, no JVD/HJR, no lymphadenopathy Cardiology: PMI nondisplaced, tachycardia Lungs: clear to auscultation, no wheeze, rales, rhonchi Neurology: cranial nerve 2-12 intact, grossly intact, no lateralizing findings Abdomen: decreased bowel sounds (colostomy), tender Extremities: dry, strong pulses, warm - Labs Result Diagrams: 06/22/19 03:30 06/22/19 03:30 - EKG Interpretation EKG shows: Sinus rhythm - Assessment/Plan Assessment/Plan: 1. Atrial flutter - s/p CTI right atrial flutter ablation. - stopped flecainide. plan to resume if atrial fibrillation is seen - rhythm stable overnight 2. Indication of anticoagulation - cannot take due to prior severe GI bleeding while on eliquis related to gastric neoplasm 3. Gastric neoplasm -per oncology Stable post ablation. Unable to take OAC/ASA due to prior bleed and not cleared by GI to our knowledge. Flecainide washing out. Had respiratory distress after GI surgery yesterday. Given Narcan. Now in ICU but extubated. Heart rhythm has had some variance since in ICU. It seems to be sinus tachycardia with occasional PACs and PVCs. This could be related to the events of the past 24 hrs vs flecainide washout. Cannot rule out left atrial flutter with some of the episodose. Will order 21 lead EKG to better assess rhythm. If recurrent atrial arrhythmias are seen he will require antiarrhythmic therapy for suppression as he cannot be anticoagulated. If NPO, I recommend starting IV amiodarone. If no ileus post op and taking PO could resume Flecainide 100mg PO BID. Will see back in clinic in 6 weeks. OK for DC by EP. Otherwise I will check on him Tuesday.
[2019-06-22] MEDS: Albumin 25% 25 GM/100 ML BOT IVPB SCH ×3 (13:32→23:39)
--- NOTE | 2019-06-22 14:29 | PDOC.MOPN ---
Interval History: events noted, patient sleeping, not disturbed. - Vital Signs Vital Signs: Vital Signs (12 hours) Temp Pulse Resp Pulse Ox 06/22/19 12:00 98.8 F 100 06/22/19 10:50 105 H 18 100 06/22/19 08:00 12 100 06/22/19 07:00 97.8 F 06/22/19 06:55 104 H 06/22/19 04:59 106 H 06/22/19 04:00 20 06/22/19 03:00 98.1 F Weight Admit Weight 186 lb 4.65 oz Weight 171 lb 1.259 oz Most Recent Monitor Data Heart Rate from ECG 91 NIBP 80/57 NIBP BP-Mean 64 Respiration from ECG 22 SpO2 100 - Physical Exam General: No acute distress HEENT: Atraumatic, PERRLA, EOMI, Mucous membr. moist/pink Lungs: Clear to auscultation, Normal air movement Cardiovascular: Regular rate, Normal S1, Normal S2, No murmurs, Gallops, Rubs Abdomen: Other (wound vac) Extremities: No clubbing, No cyanosis, No edema, Normal pulses, No tenderness/ swelling - Labs Result Diagrams: 06/22/19 03:30 06/22/19 03:30 Lab results: Laboratory Results - last 24 hr 06/22/19 06:40: Specimen Type ARTERIAL, Puncture Site RBRACH, Bicarbonate Actual 21.4 L, ABG pH 7.41, ABG pCO2 34.9 L, ABG pO2 93.6 H, ABG O2 Sat Calc/ Mikhail 97.3, ABG O2 Content 14.0 L, ABG Base Excess -2.8 L, ABG Hematocrit 30.0 L , ABG Hemoglobin 10.3 L, ABG Oxyhemoglobin 96.0, ABG Carboxyhemoglobin 1.0, ABG Methemoglobin 0.30, ABG Deoxyhemoglobin 2.7, A-a O2 Gradient 147.975 H, Sodium 131 L, Potassium 3.99, Chloride 103, Ionized Calcium 1.08 L, Mode of Support SIMV, % Minute Volume 8.8, Mechanical Rate 16, Spontaneous Rate 0, Inspired O2 40, Tidal Volume 500, Pressure Support 10, PEEP or CPAP 5.0 06/22/19 03:30: Sodium 135 L, Potassium 4.5, Chloride 100, Carbon Dioxide 24, Anion Gap 16, BUN 25, Creatinine 1.41 H, Estimated GFR (MDRD) 49, Glucose 167 H , Calcium 7.7 L, Total Bilirubin 1.0, AST 25, ALT 11, Alkaline Phosphatase 128 H , Serum Total Protein 4.9 L, Albumin 2.4 L, Globulin 2.5, Albumin/Globulin Ratio 1.0 L 06/22/19 03:30: WBC 39.6 H, RBC 3.22 L, Hgb 10.9 L, Hct 34.6 L, MCV 107.0 H, MCH 33.8 H, MCHC 31.5 L, RDW 14.7 H, Plt Count 179, MPV 8.3, Neutrophils % ( Manual) 48, Band Neuts % (Manual) 38 H, Lymphocytes % (Manual) 10 L, Monocytes % (Manual) 2, Metamyelocytes % (Man) 1 H, Myelocytes % 1 H, Plt Morphology Comment Appears Adequate 06/21/19 22:52: Specimen Type ARTERIAL, Puncture Site L RADIAL, Bicarbonate Actual 27.9, ABG pH 7.18 L*, ABG pCO2 76.6 H*, ABG pO2 136.8 H, ABG O2 Sat Calc/ Mikhail 98.1 H, ABG O2 Content 15.1 L, ABG Base Excess -1.7, ABG Hematocrit 32.0 L , ABG Hemoglobin 10.9 L, ABG Oxyhemoglobin 96.7, ABG Carboxyhemoglobin 1.1, ABG Methemoglobin 0.30, ABG Deoxyhemoglobin 1.9, Hiren Test POSITIVE, Sodium 133 L, Potassium 4.03, Chloride 101, Ionized Calcium 1.14, Mode of Support INTERMIT BAG @ 100% 06/21/19 22:46: POC Glucose 199 H 06/21/19 17:39: Blood Type A POSITIVE, Antibody Screen POSITIVE H, Antibody Identification ANTI-c, Crossmatch See Detail Status: lab reviewed by me A/P - Problem (1) Constipation Current Visit: Yes Code(s): K59.00 - CONSTIPATION, UNSPECIFIED Status: Acute (2) Gastric cancer Current Visit: Yes Status: Acute - Plan Plan: gastric lesion with bowel obstruction s/p cardiac arrest remains in ICU on levophed supportive care
[2019-06-22] MEDS ORDERED: Sodium Chloride 0.9% 1,000 ML IV SCH (15:15)
--- NOTE | 2019-06-22 15:21 | EKG ---
Test Reason : PREOP ABLATION Blood Pressure : / mmHG Vent. Rate : 078 BPM Atrial Rate : 078 BPM P-R Int : 282 ms QRS Dur : 102 ms QT Int : 388 ms P-R-T Axes : 039 -15 -13 degrees QTc Int : 442 ms Sinus rhythm with 1st degree A-V block Possible Lateral infarct , age undetermined Abnormal ECG Confirmed by DR. Michaela CARMONA ([id number]) on 06/22/2019 3:21:08 PM Referred By: LUCAS Confirmed By:DR. Michaela CARMONA
--- NOTE | 2019-06-22 15:23 | EKG ---
Test Reason : PPST ABLATION Blood Pressure : / mmHG Vent. Rate : 069 BPM Atrial Rate : 069 BPM P-R Int : 000 ms QRS Dur : 106 ms QT Int : 450 ms P-R-T Axes : -72 -16 -20 degrees QTc Int : 482 ms Unusual P axis, possible ectopic atrial rhythm Possible Lateral infarct (cited on or before 20-JUN-2019) Abnormal ECG When compared with ECG of 20-JUN-2019 10:42, (Unconfirmed) Ectopic atrial rhythm has replaced Sinus rhythm Confirmed by DR. Michaela CARMONA ([id number]) on 06/22/2019 3:23:04 PM Referred By: [facility] Confirmed By:DR. Michaela CARMONA
[2019-06-22 15:39] LABS: Hemoglobin 9.7 g/dL (14.0-18.0); Mean Corpuscular HGB CONC 31.8 g/dL (32.0-36.0); Mean Corpuscular Hemoglobin 33.8 pg (27.0-31.0); Mean Platelet Volume 8.1 fL (7.4-10.4); Platelet Count 150 thou/uL (130-400); Red Blood Cell (RBC) Count 2.88 mill/uL (4.70-6.10); White Blood Cell (WBC) Count 27.7 thou/uL (4.8-10.8)
--- NOTE | 2019-06-22 15:45 | PRG ---
DATE OF SERVICE: SUBJECTIVE: Charlie Mendieta is doing well today. Last night, postoperatively, he on telemetry after arriving here from PACU developed somnolence, required intubation due to respiratory acidosis. By this morning, he is alert and appropriately responsive. Blood gases looked good. I saw him earlier this morning and it was advised to wean him from the ventilator and extubate him, which has been accomplished by the time of this dictation. He is alert and doing well. OBJECTIVE: VITAL SIGNS: Blood pressure 80/57, heart rate 91, and respiratory rate 22. LUNGS: Clear to auscultation. CARDIAC: Regular rate and rhythm without murmur or gallop. ABDOMEN: Soft. No longer tender. Colostomy producing stool. SHAN wound suction device in place. EXTREMITIES: Unremarkable. LABORATORY DATA: White count 39 and hemoglobin 10. Basic metabolic profile normal. Creatinine slightly elevated at 1.41. Urine output is marginal. ASSESSMENT/PLAN: 1. Left hydronephrosis. Hammer catheter in place, followed by Dr. Hutton. 2. Deconditioning, poor nutrition. Albumin 25 g q.6 hours. 3. Respiratory failure. The patient has been extubated. Clear liquid diet initiated. At this point, we will continue to keep him on liquids and albumin, LR at 125 an hour. He has metastatic gastric cancer with carcinomatosis. He had 4.5 L of ascites at the time of operation yesterday, this was evacuated. He had extensive carcinomatosis causing obstruction of his left colon with tremendous tumor burden in his pelvis, probably accounting for his mild chronic hydronephrosis. There was great difficulty in mobilizing his colon to form the colostomy. At this point, he is doing well. We will ask Physical Therapy to see him and try to get into a chair, out of bed, and mobile. Job ID: [id number]
[2019-06-22 16:02] LABS: ALT (SGPT) 10 U/L (8-55); AST (SGOT) 27 U/L (5-34); Albumin 2.5 g/dL (3.4-4.8); Alkaline Phosphatase 110 U/L (40-110); Anion Gap 11 mmol/L (10-20); Anisocytosis SLIGHT = 6-15 cells (100X) (0-5/hpf); BUN (Urea Nitrogen) 28 mg/dL (8.4-25.7); Band 13 % (5-11); Bilirubin, Total 0.9 mg/dL (0.2-1.2); Calc. Creatinine Clearance 34 mL/min (70-130); Calcium 7.7 mg/dL (7.8-10.44); Carbon Dioxide 27 mmol/L (23-31); Chloride 101 mmol/L (98-107); Estimated GFR-MDRD 33; Globulin 2.2 g/dL (2.4-3.5); Glucose 123 mg/dL (83-110); Lymphocytes 5 % (21-51); MDiff Complete? YES; Macrocytosis SLIGHT = 6-15 cells (100X) (0-5/hpf); Monocytes 7 % (0-10); Neutrophil 74 % (42-75); Platelet Morphology Comment Appears Adequate; Polychromasia SLIGHT = 2-3 cells (100X) (0-2/hpf); Potassium 4.8 mmol/L (3.5-5.1); Protein, Total 4.7 g/dL (5.8-8.1); Reactive Lymphocytes 1 % (0-10); Schistocytes SLIGHT = 2-5 cells (100X) (0-1/hpf); Sodium 134 mmol/L (136-145)
[2019-06-22] MEDS: Enoxaparin Sodium 40 MG/0.4 ML SYRINGE SC SCH (20:24)
--- NOTE | 2019-06-22 21:28 | PRG ---
DATE OF SERVICE: 06/22/2019 CHIEF COMPLAINT: 1. Left-sided hydronephrosis and hydroureter extending to the level of the pelvic brim. 2. Declining glomerular filtration rate. 3. Stage T3 N2 gastric cancer with liver metastases. Metastases to the pancreas. No evidence of diffuse metastatic disease in the abdomen and lungs with malignant ascites. 4. Gastrointestinal obstruction, now status post diverting colostomy after resection of large omental implant of the gastric cancer. These are by Dr. Ryan on 06/21/2019. INTERVAL HISTORY: Mr. Charlie Mendieta is a very pleasant 79-year-old white male, who has been undergoing a number of procedures related to both his heart and his diagnosis of T3 N2 gastric cancer with metastatic disease. The patient presented with colon obstruction and also has evidence of left ureteral obstruction at the pelvic brim. We did have the patient undergo a nuclear medicine renal scan, which was performed on 06/21/2019. This study shows that he has essentially no function remaining in the left kidney. There is markedly decreased flow and function in the left kidney with 4.5% of his remaining differential function on the left side, 95.5% on the right side. PHYSICAL EXAMINATION: VITAL SIGNS: The patient's pulse is 86, respiration 16, O2 saturations 100% on 2 L by nasal cannula, current blood pressure is 93/57. HEAD, EYES, EARS, NOSE, AND THROAT: Extraocular movements are intact. Sclerae anicteric. Oropharynx is clear. The patient is awake, alert, and able to converse. He has good understanding of his current situation. LUNGS: Continuing evidence of his pneumonia, he does have a cough today. There are crackles heard bilaterally. CARDIAC: Regular rhythm. ABDOMEN: Shows presence of a colostomy in addition to surgical incisional scar. GENITOURINARY: Indwelling Hammer catheter is in place and is draining urine. LABORATORY STUDIES: The patient's white count is 27,700, consistent with patient's operative procedure. The patient's hemoglobin is 9.7, with hematocrit of 30.6. Serum chemistries showed the patient's current blood urea nitrogen up to 28 and creatinine increased to 1.98. These are increases from his baseline values of blood urea nitrogen of around 21, with creatinine of 1.23 on 06/20/2019. INTERVAL STUDIES: A nuclear medicine study is described shows only 4.5% of function remaining in the patient's left kidney. ASSESSMENT AND PLAN: 1. Metastatic gastric cancer as described. The patient has undergone surgical intervention for bowel obstruction, now has diverting colostomy. Appears to be doing well from that standpoint. There is positive production of stool. Abdomen appears to be more decompressed. 2. Quite concerns regarding hydronephrosis of the left kidney. The patient undoubtedly is obstructed secondary to metastatic involvement with a gastric cancer. I discussed with the patient the merits of stenting him and these are really not going to be beneficial to him in the long run. He will have stent discomfort from it. There is essentially no contribution to his total renal clearance from the left kidney, which only represents 4.5% of the technetium uptake on the nuclear medicine renogram study and due to that, I am not recommending placing stents in this patient. which would merit that would be inflammatory conditions associated with an abscess in the left kidney. This will be managed simply by placing a stent, treating the patient and ultimately removing the stent. The patient's renal function appears to be reasonable to support his life at this point and I do not perceive need for any further interventions. 3. Indwelling Hammer catheter. This can be removed when the patient is suitably ambulatory, not in intensive care unit situation where fluid output needs to be managed or assessed. At the present time, I think he could undergo a voiding trial in a day or two. My call group colleagues are available this weekend if there are any issues with the catheter. Over 35 minutes of consultation, assessment, and discussion time was spent with the patient today. Job ID: [id number]
[2019-06-23 03:50] LABS: ALT (SGPT) 9 U/L (8-55); AST (SGOT) 23 U/L (5-34); Albumin 2.8 g/dL (3.4-4.8); Alkaline Phosphatase 89 U/L (40-110); Anion Gap 11 mmol/L (10-20); BUN (Urea Nitrogen) 30 mg/dL (8.4-25.7); Bilirubin, Total 0.8 mg/dL (0.2-1.2); Calc. Creatinine Clearance 33 mL/min (70-130); Calcium 7.7 mg/dL (7.8-10.44); Carbon Dioxide 26 mmol/L (23-31); Chloride 103 mmol/L (98-107); Estimated GFR-MDRD 32; Globulin 1.8 g/dL (2.4-3.5); Glucose 124 mg/dL (83-110); Magnesium 1.9 mg/dL (1.6-2.6); Protein, Total 4.6 g/dL (5.8-8.1); Sodium 136 mmol/L (136-145)
[2019-06-23 04:37] LABS: Band 2 % (5-11); Hemoglobin 7.1 g/dL (14.0-18.0); Hypochromia SLIGHT = 6-15 cells (100X) (0-5/hpf); Lymphocytes 16 % (21-51); MDiff Complete? YES; Mean Corpuscular HGB CONC 32.6 g/dL (32.0-36.0); Mean Corpuscular Hemoglobin 34.7 pg (27.0-31.0); Mean Platelet Volume 8.1 fL (7.4-10.4); Monocytes 25 % (0-10); Neutrophil 56 % (42-75); Platelet Count 78 thou/uL (130-400); Platelet Morphology Comment Appears Decreased; RBC Distribution Width 14.8 % (11.5-14.5); Reactive Lymphocytes 1 % (0-10); Red Blood Cell (RBC) Count 2.03 mill/uL (4.70-6.10); Target Cells SLIGHT = 2-5 cells (100X) (0-1/hpf); White Blood Cell (WBC) Count 12.1 thou/uL (4.8-10.8)
[2019-06-23] MEDS: Ketorolac Tromethamine 30 MG/ML VIAL IVP SCH (05:37)
[2019-06-23] MEDS: Albumin 25% 25 GM/100 ML BOT IVPB SCH ×2 (05:37→13:21)
[2019-06-23] MEDS: cefTRIAXone\\ROCEPHIN 2 GM in Sodium Chloride 0.9% 100 ML IVPB SCH (09:32)
[2019-06-23] MEDS: Pantoprazole 40 MG VIAL IVP SCH (09:32)
[2019-06-23] MEDS: Lactated Ringer's 1,000 ML IV SCH ×3 (09:35→23:45)
--- NOTE | 2019-06-23 10:31 | PRG ---
DATE OF SERVICE: 06/23/2019 SUBJECTIVE: Charlie Mendieta this morning is awake, alert, and responsive. No pain. No shortness of breath. OBJECTIVE: VITAL SIGNS: He is still on Levophed with blood pressure of 120/70, pulse 80, respiratory rate 18, saturations 99%, and afebrile. CHEST: No wheezing or crackles. CARDIAC: Normal S1 and S2. No gallops. ABDOMEN: No masses. LABORATORY DATA: H and H have dropped to 7 and 21, white count is better at 12,000, no left shift. Lytes are normal. Creatinine is 2.0. ASSESSMENT: 1. metastatic cancer. 2. Status post respiratory failure. 3. Hydronephrosis. 4. Hypertension. PLAN: He is going to be transfused today. Otherwise, continue supportive care, PT. We will follow in the ICU. Job ID: [id number]
[2019-06-23 12:13] LABS: Bilirubin Negative (Negative); Blood, Urine 2+ (Negative); Clarity Turbid (Clear); Glucose, Urine (Dipstick) Normal (Negative); Leukocyte 75 Leu/uL (Negative); Nitrite Negative (Negative); Protein, Urine (Dipstick) 50 mg/dL (Neg-Trace); RBC/HPF 21-50 HPF (0-3); Squamous Epithelial 0-3 HPF (0-3); Urobilinogen Normal mg/dL (Less than 2)
[2019-06-23 12:23] LABS: Bacteria/HPF None Seen HPF (None Seen)
[2019-06-23 12:24] LABS: Urine Culture Reflex Yes Yes
[2019-06-23 12:32] LABS: Creatinine, Urine 115.12 mg/dL (63-166); Protein, Urine Random Quant 102 mg/dL (1-14); Sodium, Urine Less than 20 mmol/L (Not Available); Urea Nitrogen, Random Urine 472 mg/dl
--- NOTE | 2019-06-23 15:31 | CON ---
DATE OF CONSULTATION: 06/23/2019 SERVICE: Nephrology. REASON FOR CONSULTATION: Acute kidney injury. REQUESTING PHYSICIAN: Juanita Bustillo MD HISTORY OF PRESENT ILLNESS: A 79-year-old male with recent diagnosis of gastric cancer with metastasis on chemotherapy, atrial flutter, prior GI bleed, who was admitted on June 17, due to acute onset of fever and chills, as well as abdominal discomfort. Further evaluation revealed pneumonia and the patient was started on antibiotics. The patient was seen by lapidarist and had ablation since the patient cannot be on anticoagulation for persistent atrial flutter. The patient also subsequently developed abdominal distention and further evaluation revealed abdominal intestinal obstruction necessitating General Surgery consult. The patient subsequently had exploratory laparotomy as well as resection of abdominal omental tumor mass and creation of left upper quadrant colostomy. Postoperative period was complicated by hypotension, and the patient also was started on Toradol, following which creatinine was noted to be trending up. On admission, creatinine was 1.39, which improved to a level of 1.26 on the morning prior to surgery. A day after surgery; however, creatinine started trending up from 1.41 to 2.02 earlier today necessitating Nephrology consult. The patient has had hypotension, requiring pressor as well as fluid resuscitation, and is currently still on Levophed. He reports feeling better. Denied nausea or vomiting. He admitted to chronic bilateral leg edema, which has worsened since admission. During this hospitalization, the patient has received several blood products and also receiving albumin and fluids due to hypotension. Fever has subsided as well as cough and abdominal distention. PAST MEDICAL HISTORY: 1. Metastatic gastric cancer. 2. Atrial flutter. 3. GI bleeding. 4. Gastric ulcer. 5. Hypertension. 6. Gastroesophageal reflux disease. PAST SURGICAL HISTORY: 1. Left hip surgery. 2. Prior EGD and colonoscopy. 3. SILVIANO, cardioversion. FAMILY HISTORY: The patient lives at home with spouse. Sister had breast cancer. SOCIAL HISTORY: The patient is and lives with spouse. He is a former smoker. 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 ALLERGIES: NO KNOWN DRUG ALLERGIES REPORTED. PRIOR TO HOSPITAL MEDICATIONS: 1. Flecainide 50 mg p.o. b.i.d. 2. Furosemide 20 mg p.o. daily. 3. Metoprolol succinate 12.5 mg p.o. daily. 4. Multivitamin with mineral, folic acid, and lycopene and lutein (Centrum Silver Men) tablet one tablet p.o. daily. 5. Protonix 40 mg p.o. b.i.d. 6. Acetaminophen 650 q.6h p.r.n. CURRENT HOSPITAL MEDICATIONS: 1. Ceftriaxone 2 g every 24 hours. 2. Lactated Ringer's 125 mL/h. 3. Norepinephrine titration. 4. DuoNeb q.4 hours p.r.n. 5. Albumin 25 g IV q.6 hours. 6. Ketorolac 15 mg IV q.6 hours. 7. Lovenox 40 mg subcutaneously every evening. 8. Metoprolol succinate 12.5 mg p.o. daily. 9. Protonix IV push 40 mg daily. 10. Acetaminophen 1000 mg p.o. q.6 hours p.r.n. 11. Morphine 2 mg IV push q.2 hours p.r.n. for pain. 12. Propofol infusion. REVIEW OF SYSTEMS: 12-point review of systems performed was negative, other than pertinent positives and negatives included in the history of present illness. PHYSICAL EXAMINATION: VITAL SIGNS: Temperature 97.7, pulse 88, respiratory rate 16, SpO2 of 100% on 2 L nasal cannula, blood pressure is 111/61. GENERAL: Chronically ill-looking male, in no obvious distress. Afebrile. Anicteric. Acyanotic. HEENT: Normocephalic, atraumatic. Oral mucosa is moist. NECK: Supple with no JVD. CARDIOVASCULAR: Irregular. Normal heart sounds one and two. RESPIRATORY: Fair air entry bilaterally with some transmitted breath sounds. GI: Full, soft with appropriate tenderness. Colostomy noted. Bowel sound is normoactive. UROGENITAL: Hammer catheter is in place draining some urine. EXTREMITIES: Moderate bilateral leg edema noted. Mild edema of the hands noted as well. CORPORATE COMMUNICATIONS SPECIALIST: Conscious, alert, and oriented x3 with appropriate mental status. DIAGNOSTIC DATA: CBC today showed WBC count of 12.1, hemoglobin of 7.12, MCV of 106, platelet of 78. CMP showed sodium 136, potassium 4.0, chloride 103, CO2 of 26, BUN 30, creatinine 2.02, glucose 124, calcium 7.7, phosphorus 4.0, magnesium 1.9, total bilirubin 0.8, AST 23, ALT 9, alkaline phosphatase 89, total protein 4.6, albumin 2.8, globulin 1.8. CT scan of the abdomen done on June 17, showed mild hydronephrosis and hydroureter on the left side. Nuclear medicine renal scan showed poor tracer on the left kidney with differential function of 95.5% on the right and 4.5% on the left. ASSESSMENT: 1. Acute on chronic kidney disease. Most likely due to hemodynamic factors related to hypotension and use of NSAIDs. The patient was started on Toradol on June 21. The following day, renal function started trending up. Acute tubular necrosis is a concern here given progressive increase in creatinine in a patient who had hypotension. 2. Chronic kidney disease stage 3. 3. Acute on chronic blood loss anemia. 4. Metastatic gastric cancer with widespread metastasis. 5. Bilateral leg edema. 6. Hypoalbuminemia. 7. Hypotension. 8. History of gastric ulcer. PLAN: 1. We will stop Toradol. 2. Agree with fluid resuscitation with albumin, IV fluid, as well as blood transfusion to improve hemodynamics. 3. We will avoid any nephrotoxic agents. 4. We will dose medications renally. 5. We will also get urine electrolytes as well as urinalysis. 6. We will trend renal function. 7. Further treatment to follow depending on hospital course. Job ID: [id number]
[2019-06-23] MEDS ORDERED: traMADol HCl 50 MG TAB PO PRN (17:16)
--- NOTE | 2019-06-23 17:31 | PRG ---
DATE OF SERVICE: 06/23/2019 SUBJECTIVE: Charlie Mendieta is in ICU. He is awake and communicative. I have discussed with him operative findings. I had discussed with his operative findings after surgery that night. His wanted to go home as she did not want to be the one to tell him and discuss with him the situation. After seeing the patient today, I was asked by the patient's nurse to come and talk to the patient's as the patient did not want to explain the situation to her. I informed them that I have talked to them both separately and they are well aware of the terminal nature of the patient's illness. I have suggested he consider hospice care and DNR status. Palliative Care is seeing him. They need to have discussions with the family. The patient asked how much longer he had to live and I told him probably not more than 6 months to a year or approximately the less, but I did not know. He did indicate that he does need to get his affairs in order both at home and at the [facility]. The patient is not having nausea and vomiting. He is tolerating clear liquids. He is having more than adequate colostomy output. OBJECTIVE: VITAL SIGNS: Blood pressure 117/66 and heart rate 90. LUNGS: Clear to auscultation. CARDIAC: Regular rhythm without murmur or gallop. ABDOMEN: Soft, flat, nondistended. LABORATORY DATA: White count 12 and hemoglobin 7. He is receiving 1 unit of blood. His sodium was 136, BUN 30, and creatinine 2.02. ASSESSMENT AND PLAN: 1. Ascites, both secondary to a carcinomatosis and colon obstruction. We have relieved the colon obstruction. Hopefully, the ascites will improve, but he may reaccumulate. 2. Advance diet as he has tolerated his diet and colostomy is healthy. 3. Terminal ileus. Palliative Care has seen him. I have encouraged hospice care and DNR status. We will continue to mobilize him, hoping that he will become independently ambulatory for some time. 4. Suction device over his wound. We will remove that prior to discharge. 5. Deconditioning. Physical therapy ambulation up in chair. Job ID: [id number]
[2019-06-24 06:32] LABS: Band 1 % (5-11); Hemoglobin 7.6 g/dL (14.0-18.0); Lymphocytes 17 % (21-51); MDiff Complete? YES; Mean Corpuscular HGB CONC 32.1 g/dL (32.0-36.0); Mean Corpuscular Hemoglobin 33.9 pg (27.0-31.0); Mean Platelet Volume 8.3 fL (7.4-10.4); Metamyelocyte 2 % (0-0); Monocytes 18 % (0-10); Neutrophil 62 % (42-75); Platelet Count 54 thou/uL (130-400); Platelet Morphology Comment Appears Adequate; RBC Distribution Width 14.9 % (11.5-14.5); Red Blood Cell (RBC) Count 2.22 mill/uL (4.70-6.10); White Blood Cell (WBC) Count 5.2 thou/uL (4.8-10.8)
[2019-06-24 06:33] LABS: Anion Gap 12 mmol/L (10-20); BUN (Urea Nitrogen) 30 mg/dL (8.4-25.7); Calc. Creatinine Clearance 44 mL/min (70-130); Carbon Dioxide 25 mmol/L (23-31); Chloride 105 mmol/L (98-107); Estimated GFR-MDRD 36; Glucose 91 mg/dL (83-110); Potassium 3.9 mmol/L (3.5-5.1); Sodium 138 mmol/L (136-145)
[2019-06-24] MEDS: Lactated Ringer's 1,000 ML IV SCH ×2 (08:42→13:51)
--- NOTE | 2019-06-24 10:17 | PRG ---
DATE OF SERVICE: 06/24/2019 SUBJECTIVE: Anam is a 79-year-old gentleman, status post lap leyda. OBJECTIVE: VITAL SIGNS: Temperature 97, blood pressure 130/89, respiratory rate 20, saturations 98% on 4 L, pulse 80. GENERAL: He is awake, alert, and responsive. No pain. No discomfort. CHEST: Minimal crackles or rhonchi. CARDIAC: Normal S1, S2. No gallop. ABDOMEN: Soft. LABORATORY STUDIES: White count 5000, H and H are 7 and 23, platelet count is low at 54,000, decreased. Lytes are normal. ASSESSMENT: 1. Status post laparotomy, carcinomatosis, colon obstruction. 2. Do not resuscitate. 3. Severe thrombocytopenia. 4. Mild azotemia. PLAN: 1. Continue PT, supportive care. 2. He can be transferred out of the ICU any time. Job ID: [id number]
[2019-06-24] MEDS: cefTRIAXone\\ROCEPHIN 2 GM in Sodium Chloride 0.9% 100 ML IVPB SCH (10:55)
--- NOTE | 2019-06-24 13:27 | PRG ---
DATE OF SERVICE: 06/24/2019 SUBJECTIVE: The patient seen at bedside. Says he was complaining of shortness of breath since 10 minutes, feels that he cannot completely take a full breath. Abdominal pain is better. Denies vomiting. Denies chest pain. Denies headache, dizziness. OBJECTIVE: VITAL SIGNS: Blood pressure 108/87, pulse 110, respiratory rate 20, oxygen saturation 100%. LABORATORY DATA: CBC unremarkable except hemoglobin 7.6, platelets 54. BMP unremarkable except creatinine 1.82. Urine culture negative. Respiratory culture negative. IMPRESSION: 1. Acute hypoxic-hypercapnic respiratory failure, postop, resolved. Currently, the patient is on room air. Pulmonary evaluation appreciated. Continue incentive spirometry. 2. Metastatic gastric cancer with left colon obstruction, status post exploratory laparotomy, resection of large omental implant to enable mobilization of the transverse colon and colostomy, loop colostomy in left upper quadrant, distal transverse colon, and SHAN wound VAC. Continue postop care as per Surgery. Continue diet as per Surgery. 3. Acute kidney injury, most likely left hydronephrosis related and secondary to bowel obstruction and possible Toradol related, improving. Nephrology evaluation appreciated. 4. Left hydronephrosis. Evaluated by Urology. Recommended no urological intervention needed at present. 5. Acute on chronic anemia, status post PRBC transfusion. We will continue monitor H and H. 6. Thrombocytopenia. Platelets are 54 today. We will hold the Lovenox today. 7. History of gastric cancer. Oncology on board. 8. Sinus tachycardia. We will increase metoprolol dose. 9. Deep venous thrombosis and gastrointestinal prophylaxis. Plan discussed with the patient and nursing staff. Job ID: [id number]
[2019-06-24] MEDS ORDERED: Flecainide 50 MG TAB PO SCH (14:15)
--- NOTE | 2019-06-24 14:46 | PRG ---
DATE OF SERVICE: 06/24/2019 SERVICE: Nephrology. SUBJECTIVE: A 79-year-old male with gastric cancer with metastasis on chemotherapy admitted with fever and chills. The patient subsequently had exploratory laparotomy with colostomy for intestinal obstruction. Nephrology is following patient for acute on chronic renal failure. Reports feeling better. Denied nausea or vomiting. No fever or chills. OBJECTIVE: VITAL SIGNS: Temperature 97.4, pulse 107, respiratory rate 23, SpO2 of 98% on 4 L nasal cannula, and blood pressure is 131/89. GENERAL: Fatigued elderly male, in no obvious distress. Afebrile, anicteric. HEENT: Normocephalic, atraumatic. Oral mucosa is mildly dry. CARDIOVASCULAR: Irregular rhythm. Tachycardic. RESPIRATORY: Fair air entry bilaterally with some transmitted breath sounds. GI: Full, left upper quadrant colostomy noted. Bowel sound is hypoactive. EXTREMITIES: [id number] bilateral lower extremity edema. POWDER SHOVELER: Conscious and alert, oriented x3 with appropriate mental status. Cranial nerves 2 through 12 are grossly intact. DIAGNOSTIC DATA: CBC showed WBC count of 5.2, hemoglobin of 7.6, platelet of 54. BMP showed sodium 138, potassium 3.9, chloride 105, CO2 25, BUN 30, creatinine 1.82, calcium 8.0, glucose 91. ASSESSMENT: 1. Acute kidney injury: Due to hemodynamic factor related to intravascular contraction as well as use of NSAIDs. Creatinine is trending downward marginally from 2.02 to 1.82 with discontinuation of Toradol. 2. Chronic kidney disease. 3. Gastric cancer. 4. Tachyarrhythmia. 5. Thrombocytopenia. 6. Gastric cancer. 7. Chronic bilateral leg edema. 8. Hypoalbuminemia. PLAN: 1. We will add albumin to expand intravascular space and reduce IV fluid (crystalloid due to edema). 2. Avoid nephrotoxic agents. 3. Monitor electrolytes and replete as needed. 4. Colostomy management as per Surgery. 5. Repeat renal function test in the morning. Job ID: [id number]
--- NOTE | 2019-06-24 15:22 | CON ---
DATE OF CONSULTATION: 06/24/2019 PRIMARY SENIOR CATEGORY MANAGER: Bryon Truong MD REASON FOR CONSULTATION: Atrial fibrillation. HISTORY OF PRESENT ILLNESS: Mr. Mendieta is a pleasant 79-year-old white gentleman, very well known to myself, who comes to the hospital for fevers and chills. He has been diagnosed with gastric cancer, recently restarted chemotherapy, presented to the hospital with fevers and chills. During his evaluation, he started having abdominal pain and had to undergo exploratory laparotomy with resection of large omental implant to enable mobilization of the transverse colon and colostomy. This was all secondary to left colon obstruction due to metastatic gastric cancer. During his hospital stay, he also was in atrial flutter, so he was taken to the lab by Dr. Reyes and had atrial flutter ablation. His flecainide was stopped. Now, I am being asked to see him as he went into atrial fibrillation with rapid ventricular response. Mr. Mendieta denies any palpitations. No chest pain, tightness, pressure. No shortness of breath. PAST MEDICAL HISTORY: 1. Typical atrial flutter. 2. GI bleed secondary to gastric neoplasm discovered after starting Eliquis for typical atrial flutter. 3. Hypertension. 4. Multiple falls and deconditioning. 5. Basal cell carcinoma in the past. 6. Left hip replacement. 7. Left rotator cuff tear. 8. Aortic dilatation. 9. Recent abdominal surgery with colectomy and colostomy. OUTPATIENT MEDICATIONS: Include; 1. Lasix 20 mg a day. 2. Flecainide 50 mg q.12h. 3. Tylenol p.r.n. 4. Protonix. 5. Centrum Silver. 6. Toprol-XL 12.5 mg a day. SOCIAL HISTORY: No alcohol, tobacco, or drugs. FAMILY HISTORY: Noncontributory. REVIEW OF SYSTEMS: 12-point review of systems was done and was all negative unless stated in the history of present illness. PHYSICAL EXAMINATION: VITAL SIGNS: Temperature 98.9, respiratory rate 24, saturating 100% on 2 L nasal cannula, blood pressure 108/79, heart rate between 90 and 125. GENERAL: Awake, alert, and oriented x3, in no distress. HEENT: Normocephalic and atraumatic. NECK: Supple. LUNGS: Clear. CARDIOVASCULAR: S1, S2. Irregularly irregular. Heart rate in the 110s. ABDOMEN: Soft. Colostomy bag in place. EXTREMITIES: Trace edema. SKIN: Warm and dry. LABORATORY DATA: Laboratory work was reviewed. White count of 5.2, hemoglobin of 7.6, hematocrit of 23, platelet count of 54. Chemistries today; his creatinine 1.82, this is down from yesterday at 2. Potassium is 3.9. UA; 2+ blood, 2+ crystals, 21-50 red cells, 7-10 white cells. ASSESSMENT: 1. Atrial flutter, status post AVJ ablation. 2. Paroxysmal atrial fibrillation. 3. Metastatic gastric cancer. 4. Left colon obstruction secondary to metastatic gastric cancer, status post exploratory laparotomy and omental implant with colostomy. 5. Acute kidney injury, improving. 6. Left hydronephrosis. 7. Jhmxg-hj-warbbuv anemia. 8. Thrombocytopenia. PLAN: 1. We will restart his flecainide. We will do a one time dose of 50 mg with 100 twice a day. 2. No anticoagulation secondary to bleeding, low platelets, and anemia. 3. We will repeat an echocardiogram to make sure LV function and valvular structures are unchanged and we can in fact use flecainide. 4. . We will follow. TIME SPENT: 30 minutes critical care. Job ID: [id number]
[2019-06-24] MEDS: Albumin 25% 25 GM/100 ML BOT IVPB SCH (20:19)
[2019-06-24] MEDS: Flecainide 50 MG TAB PO SCH (20:19)
[2019-06-24] MEDS ORDERED: Enoxaparin Sodium 40 MG/0.4 ML SYRINGE SC SCH (21:00)
[2019-06-25] MEDS: Albumin 25% 25 GM/100 ML BOT IVPB SCH ×2 (01:20→08:01)
[2019-06-25 03:50] LABS: Albumin 3.2 g/dL (3.4-4.8); Anion Gap 14 mmol/L (10-20); BUN (Urea Nitrogen) 31 mg/dL (8.4-25.7); Calc. Creatinine Clearance 49 mL/min (70-130); Calcium 8.2 mg/dL (7.8-10.44); Carbon Dioxide 22 mmol/L (23-31); Chloride 101 mmol/L (98-107); Estimated GFR-MDRD 41; Glucose 116 mg/dL (83-110); Phosphorus 3.2 mg/dL (2.3-4.7); Potassium 3.9 mmol/L (3.5-5.1); Sodium 133 mmol/L (136-145)
[2019-06-25 04:02] LABS: Band 2 % (5-11); Hemoglobin 7.7 g/dL (14.0-18.0); Hypochromia SLIGHT = 6-15 cells (100X) (0-5/hpf); Lymphocytes 10 % (21-51); MDiff Complete? YES; Macrocytosis SLIGHT = 6-15 cells (100X) (0-5/hpf); Mean Corpuscular HGB CONC 32.3 g/dL (32.0-36.0); Mean Corpuscular Hemoglobin 34.4 pg (27.0-31.0); Mean Platelet Volume 8.4 fL (7.4-10.4); Monocytes 15 % (0-10); Neutrophil 73 % (42-75); Platelet Count 67 thou/uL (130-400); Platelet Morphology Comment Appears Decreased; RBC Distribution Width 14.9 % (11.5-14.5); Red Blood Cell (RBC) Count 2.25 mill/uL (4.70-6.10); White Blood Cell (WBC) Count 7.3 thou/uL (4.8-10.8)
[2019-06-25] MEDS: Flecainide 50 MG TAB PO SCH ×2 (08:01→19:54)
[2019-06-25] MEDS: cefTRIAXone\\ROCEPHIN 2 GM in Sodium Chloride 0.9% 100 ML IVPB SCH (08:07)
--- NOTE | 2019-06-25 08:39 | PDOC.MOPN ---
Interval History: Pt c/o 06/22 abd pain. Mild nausea. He is depressed about the change in his condition. - Vital Signs Vital Signs: Vital Signs (12 hours) Temp Pulse Resp Pulse Ox 06/25/19 07:27 103 H 21 H 97 06/25/19 04:00 98 F 06/25/19 02:00 106 H 25 H 95 06/25/19 00:00 98.3 F 98 06/24/19 22:48 97 19 97 Weight Admit Weight 186 lb 4.65 oz Weight 215 lb 9.793 oz Most Recent Monitor Data Heart Rate from ECG 101 NIBP 117/84 NIBP BP-Mean 95 Respiration from ECG 31 SpO2 99 - Physical Exam General: Alert, Oriented x3, Cooperative Lungs: Normal air movement Cardiovascular: Regular rate Abdomen: Other (left-sided colostomy in place, no erythema) Neurological: Cranial nerves 3-12 NL Psych/Mental Status: Mental status NL - Labs Result Diagrams: 06/25/19 03:07 06/25/19 03:07 Lab results: Laboratory Results - last 24 hr 06/25/19 03:07: Blood Type A POSITIVE, Antibody Screen POSITIVE H, Antibody Identification Cancelled, Crossmatch See Detail 06/25/19 03:07: Sodium 133 L, Potassium 3.9, Chloride 101, Carbon Dioxide 22 L, Anion Gap 14, BUN 31 H, Creatinine 1.64 H, Estimated GFR (MDRD) 41, BUN/ Creatinine Ratio 18.90, Glucose 116 H, Calcium 8.2, Phosphorus 3.2, Albumin 3.2 L 06/25/19 03:07: WBC 7.3, RBC 2.25 L, Hgb 7.7 L, Hct 23.9 L, MCV 106.0 H, MCH 34.4 H, MCHC 32.3, RDW 14.9 H, Plt Count 67 L, MPV 8.4, Neutrophils % (Manual) 73, Band Neuts % (Manual) 2 L, Lymphocytes % (Manual) 10 L, Monocytes % (Manual ) 15 H, Hypochromia SLIGHT = 6-15 cells, Plt Morphology Comment Appears Decreased L, Macrocytosis SLIGHT = 6-15 cells 06/21/19 17:39: Crossmatch See Detail A/P - Problem (1) Constipation Current Visit: Yes Code(s): K59.00 - CONSTIPATION, UNSPECIFIED Status: Acute (2) Gastric cancer Current Visit: Yes Status: Acute (3) Acute on chronic anemia Current Visit: No Code(s): D64.9 - ANEMIA, UNSPECIFIED Status: Acute (4) Right lower lobe pneumonia Current Visit: No Code(s): J18.1 - LOBAR PNEUMONIA, UNSPECIFIED ORGANISM Status: Acute (5) Thrombocytopenia Current Visit: No Code(s): D69.6 - THROMBOCYTOPENIA, UNSPECIFIED Status: Acute (6) CKD (chronic kidney disease) Current Visit: No Code(s): N18.9 - CHRONIC KIDNEY DISEASE, UNSPECIFIED Status: Chronic - Plan Plan: encourage increasing PO intake cont PT Discussed treatment vs hospice: he has very advanced cancer and may have weeks to months to live and could not tolerate treatment in his current condition, however if he is able to improve his PS in the next couple weeks he could potentially receive 2nd-line chemotherapy, otherwise would recommend hospice. Pt will discuss with his .
--- NOTE | 2019-06-25 09:13 | PRG ---
DATE OF SERVICE: 06/25/2019 SUBJECTIVE: This morning, he is better status post lap. OBJECTIVE: VITAL SIGNS: Temperature 98, pulse 103, respiratory rate 21, saturations are 97% on 1 L, blood pressure 120/80. CHEST: No wheezing or crackles. CARDIAC: Normal S1, S2. No gallops. ABDOMEN: No masses. LABORATORY DATA: Creatinine 1.6. His white count is 7000, H and H are 7 and 23, platelet count is 67,000. IMPRESSION AND PLAN: 1. Metastatic carcinomatosis. 2. Respiratory failure, resolved. 3. Hypertension. 4. Severe deconditioning. Pulmonary maier, doing better, can be transferred to monitored bed. We will follow. Job ID: [id number]
--- NOTE | 2019-06-25 10:46 | PRG ---
DATE OF SERVICE: 06/23/2019 SUBJECTIVE: The patient is seen at bedside. Says he feels better. Denies any shortness of breath, chest pain, has abdominal pain, started a clear liquid diet today. Denies fever. OBJECTIVE: VITAL SIGNS: Blood pressure 118/60, heart rate 87, respiratory rate 21, oxygen saturation 100%, temperature 97.7. GENERAL: Patient lying in bed comfortably, in no distress. HEENT: Conjunctivae normal. Oral mucosa mildly pale. HEART: Sound normal. ABDOMEN: Mildly distended. Bowel sounds audible. Negative edema. EXTREMITIES: Feet no rash, no cyanosis. LABORATORY DATA: BMP unremarkable except creatinine 2.02. UA, white blood cells 7 to 10. IMPRESSION: 1. Acute hypercapnic hypoxic respiratory failure, most likely secondary to pain medication induced under postop, status post intubation, status post extubation on 06/22/2019. The patient is currently feeling better. No distress. 2. Small bowel obstruction secondary to possible gastric cancer, status post exploratory laparotomy, resection of large omental implant to enable mobilization of transverse colon and colostomy loop colostomy in the left upper quadrant distal transverse colon and SHAN wound VAC. The patient started clear liquid diet by Surgery. Continue postop care as per Surgery. 3. Left-sided hydronephrosis and hydroureter, extending to the level of pelvic brim. Urology on board, recommended no surgical intervention. 4. History of a gastrointestinal stromal tumor, Oncology on board. 5. Anemia of chronic disease. The patient denies any active bleeding. We will give 1 unit PRBC today. 6. Acute kidney injury, most likely secondary to hypotension. Nephrology been consulted and will continue fluids. Monitor BMP in the morning. 7. Deep venous thrombosis and gastrointestinal prophylaxis. PLAN: Discussed with the patient and nursing staff. Job ID: [id number]
--- NOTE | 2019-06-25 13:30 | PDOC.HOSPP ---
- Subjective Encounter Date: 06/25/19 Encounter Time: 12:20 Subjective: is feeling better no nausea but has fullness to eat more no sob - Objective Vital Signs & Weight: Vital Signs (12 hours) Temp Pulse Pulse Pulse Resp BP BP 06/25/19 10:40 113 H 107 H 136/100 H 133/93 H 06/25/19 08:00 97.1 F L 06/25/19 07:27 103 H 21 H 06/25/19 04:00 98 F 06/25/19 02:00 106 H 25 H Pulse Ox Pulse Ox Pulse Ox 06/25/19 10:40 101 H 100 06/25/19 08:00 97 06/25/19 07:27 97 06/25/19 04:00 06/25/19 02:00 95 Weight Admit Weight 186 lb 4.65 oz Weight 215 lb 9.793 oz Most Recent Monitor Data Heart Rate from ECG 112 NIBP 136/100 NIBP BP-Mean 112 Respiration from ECG 21 SpO2 99 I&O: 06/24/19 06/25/19 06/26/19 06:59 06:59 06:59 Intake Total 5066 2629 720 Output Total 958 920 300 Balance 4108 1709 420 Result Diagrams: 06/25/19 03:07 06/25/19 03:07 Hospitalist ROS - Medication Medications: Active Medications Generic Name Dose Route Start Last Admin Trade Name Freq PRN Reason Stop Dose Admin Acetaminophen 1,000 mg 06/21/19 20:18 06/23/19 09:33 Tylenol PO 1,000 mg Q6H PRN Administration Moderate to Severe Pain (6-10) Albuterol/Ipratropium 3 ml 06/22/19 10:30 06/25/19 10:49 Duoneb NEB Not Given [id number] LINDA Flecainide Acetate 100 mg 06/24/19 21:00 06/25/19 08:01 Tambocor PO 100 mg Q12HR LINDA Administration Ceftriaxone Sodium 2 gm/ 100 mls @ 200 mls/hr 06/17/19 09:00 06/25/19 08:07 Sodium Chloride IVPB 100 mls Q24HR LINDA Administration Metoprolol Succinate 25 mg 06/25/19 09:00 06/25/19 08:01 Toprol Xl PO 25 mg DAILY LINDA Administration Pantoprazole Sodium 40 mg 06/24/19 09:00 06/25/19 08:01 Protonix PO 40 mg DAILY LINDA Administration - Exam General Appearance: awake alert, ill appearing Eye: PERRL, anicteric sclera ENT: normocephalic atraumatic, dry oral mucosa Neck: supple, no JVD Heart: RRR, no murmur Respiratory: no wheezes, no rales Gastrointestinal: soft, normal bowel sounds, distended Gastrointestinal - other findings: colostomy has brown stool Extremities: no cyanosis, 1+ LE edema Neurological: cranial nerve grossly intact, no focal deficits Hosp A/P (1) Gastric cancer Status: Acute (2) Hydronephrosis Code(s): N13.30 - UNSPECIFIED HYDRONEPHROSIS Status: Acute Qualifiers: Hydronephrosis type: unspecified Qualified Code(s): N13.30 - Unspecified hydronephrosis (3) Acute on chronic anemia Code(s): D64.9 - ANEMIA, UNSPECIFIED Status: Acute (4) Generalized weakness Code(s): R53.1 - WEAKNESS Status: Acute (5) Physical deconditioning Code(s): R53.81 - OTHER MALAISE Status: Acute (6) Right lower lobe pneumonia Code(s): J18.1 - LOBAR PNEUMONIA, UNSPECIFIED ORGANISM Status: Resolved (7) Thrombocytopenia Code(s): D69.6 - THROMBOCYTOPENIA, UNSPECIFIED Status: Acute (8) Atrial flutter Code(s): I48.92 - UNSPECIFIED ATRIAL FLUTTER Status: Chronic Qualifiers: Atrial flutter type: unspecified Qualified Code(s): I48.92 - Unspecified atrial flutter (9) CKD (chronic kidney disease) Code(s): N18.9 - CHRONIC KIDNEY DISEASE, UNSPECIFIED Status: Chronic Qualifiers: Chronic kidney disease stage: stage 3 (moderate) Qualified Code(s): N18.3 - Chronic kidney disease, stage 3 (moderate) (10) HTN (hypertension) Code(s): I10 - ESSENTIAL (PRIMARY) HYPERTENSION Status: Chronic Qualifiers: Hypertension type: essential hypertension Qualified Code(s): I10 - Essential (primary) hypertension - Plan is on flecainide bid, toprol xl, protonix, nebs on reg diet prognosis guarded has severe deconditioning, oob to chair and mobilize with PT as tolerated abd is distended, likely has reaccumulation of ascites (had 3.5 lts removed with surgery) onc progress notes reviewed, is for 2nd line chemo if his functional status improves in not they suggest hospice may tx to onc floor unless pt wants ep studies for flutter, he is not a candidate for anticoagulation now, may end up on vent post procedure is very deconditioned.
--- NOTE | 2019-06-25 14:31 | PDOC.CPN ---
- Subjective Date: 06/25/19 Time: 14:29 Interval history: Feels depressed about his current condition. Nausea. - Review of Systems General: reports: fatigue Respiratory: reports: shortness of breath Cardiovascular: reports: edema Gastrointestinal: reports: nausea Musculoskeletal: reports: pain Neurological: denies: numbness, syncope, seizure, weakness - Objective Allergies/Adverse Reactions: Allergies Allergy/AdvReac Type Severity Reaction Status Date / Time No Known Allergies Allergy Verified 05/19/19 02:03 Visit Medications: Current Medications Acetaminophen (Tylenol) 1,000 mg PO Q6H PRN PRN Reason: Moderate to Severe Pain (6-10) Last Admin: 06/23/19 09:33 Dose: 1,000 mg Albuterol/Ipratropium (Duoneb) 3 ml NEB [id number] [facility] Last Admin: 06/25/19 10:49 Dose: Not Given Flecainide Acetate (Tambocor) 100 mg PO Q12HR [facility] Last Admin: 06/25/19 08:01 Dose: 100 mg Ceftriaxone Sodium 2 gm/ (Sodium Chloride) 100 mls @ 200 mls/hr IVPB Q24HR [facility] Last Admin: 06/25/19 08:07 Dose: 100 mls Metoprolol Succinate (Toprol Xl) 25 mg PO DAILY [facility] Last Admin: 06/25/19 08:01 Dose: 25 mg Pantoprazole Sodium (Protonix) 40 mg PO DAILY [facility] Last Admin: 06/25/19 08:01 Dose: 40 mg Sodium Chloride (Flush - Normal Saline) 10 ml IVF Q12HR PRN PRN Reason: Saline Flush Sodium Chloride (Flush - Normal Saline) 10 ml IVF PRN PRN PRN Reason: Saline Flush Tramadol HCl (Ultram) 50 mg PO Q4H PRN PRN Reason: Mild Pain (1-3) Vital Signs & Weight: Vital Signs Temp Pulse Pulse Pulse Resp BP BP 06/25/19 10:40 113 H 107 H 136/100 H 133/93 H 06/25/19 08:00 97.1 F L 06/25/19 07:27 103 H 21 H 06/25/19 04:00 98 F Pulse Ox Pulse Ox Pulse Ox 06/25/19 10:40 101 H 100 06/25/19 08:00 97 06/25/19 07:27 97 06/25/19 04:00 Admit Weight 186 lb 4.65 oz Weight 215 lb 9.793 oz - Medication Contraindications No Anticoagulant reason: Anticoagulant not tolerated - Physical Exam General: no apparent distress HEENT: normocephaly Neck: supple neck Cardiac: regular rate and rhythm Lungs: normal breath sounds Neuro: grossly intact Abdomen: active bowel sounds Extremities: no edema Skin: clear Musculoskeletal: no fluid collection - Labs Result Diagrams: 06/25/19 03:07 06/25/19 03:07 - Telemetry Supraventricular conduction: atrial flutter - Assessment/Plan Assessment/Plan: 1. Atrial fibrilation/Atroial flutter. 2. S/P Flutter balation 3. metastatic gastric Ca 4. Left colon obstruction, s/p Exp lap with omental implant and colostomy. 5. Anemia 6. Left hydronephrosis 7. Thrombocytopenia PLAN: - Continue Flecainide 100 mgf BID - No anticoagulation due to bleeding issues in the past from metastatic disease. - Currently rate controlled. - Critical Care Time Critical care time (mins): 30
--- NOTE | 2019-06-25 17:43 | PDOC.GSPN ---
Surgery Progress Note: Subj - Subjective Narrative: c/o nausea and bloating with solids Surgery Progress Note: Obj - Vital signs Vital signs: Vital Signs - Most Recent Temp Pulse Resp BP Pulse Ox 97.1 F L 110 H 19 136/100 H 100 06/25/19 08:00 06/25/19 14:47 06/25/19 14:47 06/25/19 10:40 06/25/19 14:47 - Physical Exam General: no distress Abdomen: soft, decreased bowel sounds, appropriately tender, distended Wound: ostomy/colostomy (with no air/stool) Surgery Progress Note: Results - Labs Result Diagrams: 06/25/19 03:07 06/25/19 03:07 Lab results: Laboratory Results - last 24 hr 06/25/19 03:07 Blood Type A POSITIVE Antibody Screen POSITIVE H Antibody Identification Cancelled Crossmatch See Detail Surgery Progress Note: A/P - Problem (1) Carcinomatosis Current Visit: Yes Code(s): C80.0 - DISSEMINATED MALIGNANT NEOPLASM, UNSPECIFIED Status: Acute - Plan Plan: Ileus expected -placed back down to fulls
--- NOTE | 2019-06-25 19:37 | PRG ---
DATE OF SERVICE: 06/25/2019 SERVICE: Nephrology. SUBJECTIVE: A 79-year-old male seen in followup for acute on chronic renal failure. The patient with gastric cancer, admitted due to fever and chills, felt to be due to pneumonia later developed abdominal distention and found to have intestinal obstruction, for which he is status post resection of omental mass with colostomy. Complained of abdominal distention and bloating and easy satiety. Denied nausea, vomiting, hematemesis, or hematochezia. Oral intake is suboptimal. OBJECTIVE: VITAL SIGNS: Temperature 97.4, pulse 89, respiratory rate 19, SpO2 of 100% on 2 L nasal cannula, and blood pressure is 111/86. GENERAL: Chronically ill-looking elderly male, in no obvious distress. The patient is fatigued. HEENT: Normocephalic and atraumatic. CARDIOVASCULAR: Regular rhythm and rate with normal heart sounds 1 and 2. RESPIRATORY: Fair air entry bilaterally with some transmitted breath sounds. GI: Distended and tympanitic with hypoactive bowel sounds. Left upper quadrant colostomy as well as ventral midline surgical incision noted. UROGENITAL: Mild scrotal edema and Hammer catheter in place. EXTREMITIES: Mild bilateral leg edema noted. INDUSTRIAL SERVICES WORKER: Conscious, alert, and oriented x3 with appropriate mental status. DIAGNOSTIC DATA: CBC showed WBC count of 7.3, hemoglobin of 7.7, platelets of 67. Renal function panel showed sodium 133, potassium 3.9, chloride 101, CO2 of 22, BUN 31, creatinine 1.64, glucose 116, calcium 8.2, phosphorus 3.2, and albumin 3.2. ASSESSMENT: 1. Acute kidney injury: Due to hemodynamic factors related to intravascular contraction as well as use of NSAIDs. 2. Chronic kidney disease, stage 3/4. 3. Acute blood loss anemia. 4. Hypotension, requiring pressors and fluid resuscitation, improved. 5. Intestinal obstruction, status post resection of omental mass and colostomy. 6. Gastric cancer with metastasis. 7. Cachexia of cancer. 8. Protein-calorie malnutrition, moderate. 9. Chronic bilateral leg edema. 10. Physical deconditioning/functional quadriparesis. PLAN: 1. We will continue to avoid nephrotoxic agents including NSAIDs and SAMM jeferson. 2. [place] oral intake recommended. 3. Due to possibility of recurrence of intestinal obstruction, surgery consult/re-evaluation is recommended. 4. We will continue to monitor electrolytes and replete as indicated. 5. Blood transfusion as per primary attending. Job ID: [id number]
[2019-06-26 05:23] LABS: Mean Corpuscular HGB CONC 32.3 g/dL (32.0-36.0); Mean Corpuscular Hemoglobin 34.6 pg (27.0-31.0); Mean Platelet Volume 8.1 fL (7.4-10.4); Platelet Count 96 thou/uL (130-400); RBC Distribution Width 14.6 % (11.5-14.5); Red Blood Cell (RBC) Count 2.61 mill/uL (4.70-6.10); White Blood Cell (WBC) Count 12.7 thou/uL (4.8-10.8)
[2019-06-26 05:43] LABS: Albumin 3.1 g/dL (3.4-4.8); Anion Gap 13 mmol/L (10-20); BUN (Urea Nitrogen) 33 mg/dL (8.4-25.7); BUN/Creatinine Ratio 23.24; Calc. Creatinine Clearance 54 mL/min (70-130); Calcium 8.5 mg/dL (7.8-10.44); Carbon Dioxide 25 mmol/L (23-31); Chloride 101 mmol/L (98-107); Estimated GFR-MDRD 48; Glucose 103 mg/dL (83-110); Phosphorus 3.9 mg/dL (2.3-4.7); Potassium 4.2 mmol/L (3.5-5.1); Sodium 135 mmol/L (136-145)
--- NOTE | 2019-06-26 09:41 | PRG ---
DATE OF SERVICE: 06/26/2019 SUBJECTIVE: This morning, he is awake and responsive. Abdomen is distended. OBJECTIVE: VITAL SIGNS: Saturations 99% on 2 L, pulse 114, and blood pressure 130/80. GENERAL: Denies difficulty breathing. He feels abdomen is distended. CHEST: Decreased breath sounds. No wheezing. CARDIAC: Normal S1 and S2. No gallops. ABDOMEN: No masses. ASSESSMENT: Cardiac arrhythmias, abdominal carcinomatosis, respiratory failure, severe deconditioning, and advanced age. PLAN: Transferred to telemetry. Continue PT and supportive care. We will follow while in the icu Job ID: [id number] MTDD
[2019-06-26] MEDS: Flecainide 50 MG TAB PO SCH ×2 (09:54→20:36)
[2019-06-26] MEDS: cefTRIAXone\\ROCEPHIN 2 GM in Sodium Chloride 0.9% 100 ML IVPB SCH (09:54)
[2019-06-26] MEDS ORDERED: Flecainide 50 MG TAB PO SCH (10:00)
--- NOTE | 2019-06-26 10:05 | PRG ---
DATE OF SERVICE: 06/26/2019 SUBJECTIVE: Mr. Mendieta is still feeling bloated. He is burping at times. He is having gas in his bag. OBJECTIVE: His pulse is 107, blood pressure is 102/77. On exam, his wounds are healing well. His back has air, but no stool. ASSESSMENT: Postoperative diverting colostomy biopsy. PLAN: Continue full liquids until more bowel function and less bloating. Okay to transfer to floor from my standpoint. Job ID: [id number]
--- NOTE | 2019-06-26 14:03 | PRG ---
DATE OF SERVICE: 06/26/2019 SERVICE: Nephrology. SUBJECTIVE: A 79-year-old male with metastatic gastric cancer, seen in followup for treatment of acute kidney injury. The patient admitted with fever and chills, found to have pneumonia, later developed intestinal obstruction for which he is status post exploratory laparotomy and colostomy. Still complaining of abdominal bloating, distention, and easy fullness. Oral intake is poor. Denied nausea or vomiting however. OBJECTIVE: VITAL SIGNS: Temperature 98.6, pulse 87, respiratory rate 17, SpO2 of 100% on 2 L nasal cannula, blood pressure is 96/68. GENERAL: Chronically ill-looking elderly, in no obvious distress. Afebrile. HEENT: Normocephalic, atraumatic. Oral mucosa is moist. NECK: Supple with no JVD. CARDIOVASCULAR: Irregular rhythm and rate with normal heart sounds 1 and 2. RESPIRATORY: Fair air entry bilaterally with few transmitted breath sounds, but no obvious rhonchi or crackles. GI: Mildly distended. Bowel sound is normoactive. Colostomy and ventral surgical scar noted. UROGENITAL: Scrotal and penile swelling with Hammer catheter intact in place noted. EXTREMITIES: Mild bilateral leg edema noted. SITE SAFETY COORDINATOR: Conscious, alert, oriented x3 with appropriate mental status. Cranial nerves 2 through 12 are grossly fine. DIAGNOSTIC DATA: CBC showed WBC count of 12.7, hemoglobin of 9.0, platelet of 96. Renal function panel showed sodium 135, potassium 4.2, chloride 101, CO2 of 25, BUN 33, creatinine 1.42, glucose 103, calcium 8.5, phosphorus 3.9, albumin 3.1. ASSESSMENT: 1. Acute kidney injury: Due to hemodynamic factors related to hypotension, volume contraction, and use of NSAIDs. With IV fluid and discontinuation of NSAIDs, creatinine is trending downwards. It is 1.42 today from peak of 2.02. However, it is not yet back to baseline. Baseline creatinine ranges from 1.2 to 1.3. 2. Chronic kidney disease stage 3. 3. Metastatic gastric cancer. 4. Bilateral leg edema: Multifactorial from hypoalbuminemia to venous insufficiency, most likely due to metastatic disease with obstructive lymphedema. 5. Cachexia of malignancy. 6. Protein-calorie malnutrition. 7. Anemia. 8. Atrial fibrillation/flutter. PLAN: 1. Continue supportive care. 2. Avoid nephrotoxic agents. 3. We will add as the patient reports cramps with milk shake. 4. Abdominal distention. Management as per General Surgery. We will check renal function test in the morning. Palliative care is on this case. Overall, prognosis does not look good given metastatic gastric cancer complicated by intestinal obstruction. The patient currently have abdominal distention, which may suggest recurrence of intestinal obstruction despite resection of omental mass and colostomy. Job ID: [id number]
--- NOTE | 2019-06-26 15:33 | PDOC.HOSPP ---
- Subjective Encounter Date: 06/26/19 Encounter Time: 13:00 Subjective: is on liq diet had ascitic flow out of colostomy orifice, around 2lts roughly, its connected to collecting bag now - Objective Vital Signs & Weight: Vital Signs (12 hours) Temp Pulse Pulse BP Pulse Ox Pulse Ox 06/26/19 14:22 97 111/82 98 06/26/19 12:00 98.6 F 06/26/19 08:02 115 H 99 06/26/19 08:00 98.4 F 97 06/26/19 04:00 98.7 F Weight Admit Weight 186 lb 4.65 oz Weight 196 lb 10.437 oz Most Recent Monitor Data Heart Rate from ECG 87 NIBP 96/68 NIBP BP-Mean 77 Respiration from ECG 17 SpO2 100 I&O: 06/25/19 06/26/19 06/27/19 06:59 06:59 06:59 Intake Total 2629 960 180 Output Total 836 298 9074 Balance 1709 80 -2075 Result Diagrams: 06/26/19 05:00 06/26/19 05:00 Hospitalist ROS - Medication Medications: Active Medications Generic Name Dose Route Start Last Admin Trade Name Freq PRN Reason Stop Dose Admin Acetaminophen 1,000 mg 06/21/19 20:18 06/23/19 09:33 Tylenol PO 1,000 mg Q6H PRN Administration Moderate to Severe Pain (6-10) Albuterol/Ipratropium 3 ml 06/22/19 10:30 06/26/19 08:02 Duoneb NEB 3 ml [id number] LINDA Administration Pantoprazole Sodium 40 mg 06/24/19 09:00 06/26/19 09:53 Protonix PO 40 mg DAILY LINDA Administration - Exam General Appearance: awake alert, ill appearing Eye: PERRL, anicteric sclera ENT: no oropharyngeal lesions, dry oral mucosa Neck: supple, no JVD Heart: RRR, no murmur Respiratory: no wheezes, no ronchi Gastrointestinal: soft, normal bowel sounds, distended Gastrointestinal - other findings: colostomy+ Extremities: no cyanosis, 1+ LE edema Neurological: cranial nerve grossly intact, no focal deficits Psychiatric: A&O x 3 Hosp A/P (1) Gastric cancer Status: Acute (2) Hydronephrosis Code(s): N13.30 - UNSPECIFIED HYDRONEPHROSIS Status: Acute Qualifiers: Hydronephrosis type: unspecified Qualified Code(s): N13.30 - Unspecified hydronephrosis (3) Acute on chronic anemia Code(s): D64.9 - ANEMIA, UNSPECIFIED Status: Acute (4) Generalized weakness Code(s): R53.1 - WEAKNESS Status: Acute (5) Physical deconditioning Code(s): R53.81 - OTHER MALAISE Status: Acute (6) Right lower lobe pneumonia Code(s): J18.1 - LOBAR PNEUMONIA, UNSPECIFIED ORGANISM Status: Resolved (7) Thrombocytopenia Code(s): D69.6 - THROMBOCYTOPENIA, UNSPECIFIED Status: Acute (8) Atrial flutter Code(s): I48.92 - UNSPECIFIED ATRIAL FLUTTER Status: Chronic Qualifiers: Atrial flutter type: unspecified Qualified Code(s): I48.92 - Unspecified atrial flutter (9) CKD (chronic kidney disease) Code(s): N18.9 - CHRONIC KIDNEY DISEASE, UNSPECIFIED Status: Chronic Qualifiers: Chronic kidney disease stage: stage 3 (moderate) Qualified Code(s): N18.3 - Chronic kidney disease, stage 3 (moderate) (10) HTN (hypertension) Code(s): I10 - ESSENTIAL (PRIMARY) HYPERTENSION Status: Chronic Qualifiers: Hypertension type: essential hypertension Qualified Code(s): I10 - Essential (primary) hypertension - Plan is on flecainide bid, toprol xl, protonix, nebs on liq diet had ascitic fluid come out of colostomy orifice and is now connected to collecting bag prognosis guarded has severe deconditioning, oob to chair and mobilize with PT as tolerated had 3.5 lts ascitic fluid removed with surgery onc progress notes reviewed, is for 2nd line chemo if his functional status improves in not they suggest hospice, has poorly diff adenoca with P.carcinomatosis. may tx to onc floor if ok with EP
--- NOTE | 2019-06-26 15:40 | PDOC.EP ---
- Subjective Date: 06/26/19 Time: 08:00 Interval History: follow up for atrial arrhythmia management. had AFib RVR over weekend and started on PO flecainide. Continues to have some rhythm irregularity and also abd distention. Denies heart racing, palpitations, chest pain, passing out, or stroke like symptoms. - Review of Systems Constitutional: reports: malaise, weakness. denies: chills, fever, sweats, other Respiratory: denies: cough, pleuritic pain, shortness of breath, sputum, wheezing Cardiology: denies: chest pain, heart racing, light headedness, palpitations, passing out Gastrointestinal: reports: abdominal pain (distention), nausea - Objective Allergies/Adverse Reactions: Allergies Allergy/AdvReac Type Severity Reaction Status Date / Time No Known Allergies Allergy Verified 05/19/19 02:03 Current Medications Acetaminophen (Tylenol) 1,000 mg PO Q6H PRN PRN Reason: Moderate to Severe Pain (6-10) Last Admin: 06/23/19 09:33 Dose: 1,000 mg Albuterol/Ipratropium (Duoneb) 3 ml NEB [id number] LINDA Last Admin: 06/26/19 08:02 Dose: 3 ml Flecainide Acetate (Tambocor) 50 mg PO Q12HR LINDA Metoprolol Succinate (Toprol Xl) 25 mg PO DAILY LINDA Pantoprazole Sodium (Protonix) 40 mg PO DAILY [facility] Last Admin: 06/26/19 09:53 Dose: 40 mg Sodium Chloride (Flush - Normal Saline) 10 ml IVF Q12HR PRN PRN Reason: Saline Flush Sodium Chloride (Flush - Normal Saline) 10 ml IVF PRN PRN PRN Reason: Saline Flush Tramadol HCl (Ultram) 50 mg PO Q4H PRN PRN Reason: Mild Pain (1-3) Vital Signs & Weight: Vital Signs Temp Pulse Pulse BP Pulse Ox Pulse Ox 06/26/19 14:22 97 111/82 98 06/26/19 12:00 98.6 F 06/26/19 08:02 115 H 99 06/26/19 08:00 98.4 F 97 06/26/19 04:00 98.7 F Admit Weight 186 lb 4.65 oz Weight 196 lb 10.437 oz I/O: I/O 06/25/19 06/26/19 06/27/19 06:59 06:59 06:59 Intake Total 2622 960 180 Output Total 106 233 3031 Balance 5488 26 -7618 - Quality Measures Condition: Atrial Fibrillation/Flutter (hx or current) - Medication Contraindications No Anticoagulant reason: Anticoagulant not tolerated - Physical Exam General: alert & oriented x3, appears well, no apparent distress, speech clear, affect appropriate HEENT: mucus membranes moist, normocephaly Neck: supple neck, midline trachea, no JVD/HJR, no lymphadenopathy Cardiology: irregularly irregular, tachycardia Lungs: clear to auscultation, normal breath sounds, no wheeze, rales, rhonchi Neurology: cranial nerve 2-12 intact, grossly intact, no lateralizing findings Abdomen: tender, distended, bowel diversion Skin: groin sites stable - Labs Result Diagrams: 06/26/19 05:00 06/26/19 05:00 - EKG Interpretation EKG shows: Sinus rhythm (PACs, occasional PAT) - Assessment/Plan Assessment/Plan: 1. Atrial flutter - s/p CTI right atrial flutter ablation. - stopped flecainide. plan to resume if atrial fibrillation is seen - rhythm stable overnight 2. Indication of anticoagulation - cannot take due to prior severe GI bleeding while on eliquis related to gastric neoplasm 3. Gastric neoplasm -per oncology Stable post ablation. Unable to take OAC/ASA due to prior bleed and not cleared by GI to our knowledge. Went into AFib with RVR over the weekend and was started on PO flecainide. No CTI dependent flutter has been seen since ablation. Continues to have PAT runs with frequent PACs. There is concern voiced about possible re-obstruction which makes me question how well PO medications are being absorbed, which could explain why flecainide has not been more effective despite the higher dose. Will recheck tomorrow. If rhythm variations persist or repeat surgery is considered, we may need to transition him to IV amiodarone.
--- NOTE | 2019-06-26 18:27 | PDOC.CPN ---
- Subjective Date: 06/26/19 Time: 18:27 Interval history: He is feeling better today. No chest pain. HR in the 90-100's. Some distention. - Review of Systems General: denies: fever/chills, weight/appetite/sleep changes, night sweats, fatigue Respiratory: denies: cough, congestion, shortness of breath, exercise intolerance Cardiovascular: denies: chest pain, palpitation, edema, paroxysmal nocturnal dyspnea, orthopnea Gastrointestinal: denies: nausea, vomiting, diarrhea, constipation, abd pain, GI bleeding Musculoskeletal: reports: pain. denies: tenderness, stiffness, swelling, arthritis/arthralgias Neurological: denies: numbness, syncope, seizure, weakness - Objective Allergies/Adverse Reactions: Allergies Allergy/AdvReac Type Severity Reaction Status Date / Time No Known Allergies Allergy Verified 05/19/19 02:03 Visit Medications: Current Medications Acetaminophen (Tylenol) 1,000 mg PO Q6H PRN PRN Reason: Moderate to Severe Pain (6-10) Last Admin: 06/23/19 09:33 Dose: 1,000 mg Albuterol/Ipratropium (Duoneb) 3 ml NEB [id number] LINDA Last Admin: 06/26/19 15:41 Dose: 3 ml Flecainide Acetate (Tambocor) 50 mg PO Q12HR [facility] Metoprolol Succinate (Toprol Xl) 25 mg PO DAILY [facility] Pantoprazole Sodium (Protonix) 40 mg PO DAILY [facility] Last Admin: 06/26/19 09:53 Dose: 40 mg Sodium Chloride (Flush - Normal Saline) 10 ml IVF Q12HR PRN PRN Reason: Saline Flush Sodium Chloride (Flush - Normal Saline) 10 ml IVF PRN PRN PRN Reason: Saline Flush Tramadol HCl (Ultram) 50 mg PO Q4H PRN PRN Reason: Mild Pain (1-3) Vital Signs & Weight: Vital Signs Temp Pulse Pulse Resp BP Pulse Ox Pulse Ox 06/26/19 15:41 91 17 99 06/26/19 14:22 97 111/82 98 06/26/19 12:00 98.6 F 06/26/19 08:02 115 H 99 06/26/19 08:00 98.4 F 97 Admit Weight 186 lb 4.65 oz Weight 196 lb 10.437 oz - Medication Contraindications No Anticoagulant reason: Anticoagulant not tolerated - Physical Exam General: alert & oriented x3 HEENT: mucus membranes moist Neck: supple neck Cardiac: regular rate and rhythm Lungs: decreased breath sounds Neuro: grossly intact Abdomen: active bowel sounds Extremities: no edema Skin: clear Musculoskeletal: no pain - Labs Result Diagrams: 06/26/19 05:00 06/26/19 05:00 - Telemetry Sinus rhythms and dysrhythmias: sinus rhythm - Assessment/Plan Assessment/Plan: 1. Atrial fibrilation/Atrial flutter. 2. S/P Flutter ablation 3. Metastatic gastric Ca 4. Left colon obstruction, s/p Exp lap with omental implant and colostomy. 5. Anemia 6. Left hydronephrosis 7. Thrombocytopenia PLAN: - Back in sinus, Hold flecainide for now. May need IV amiodarone. - No anticoagulation due to bleeding issues in the past from metastatic disease.
--- NOTE | 2019-06-27 08:53 | PRG ---
DATE OF SERVICE: 06/27/2019 SUBJECTIVE: A 79-year-old gentleman, status post lap, carcinomatosis. His respiratory failure is much improved. OBJECTIVE: VITAL SIGNS: Temperature 98, pulse 98, respirations 16, saturations 90%, blood pressure 101/70. CHEST: Decreased breath sounds. No wheezing. CARDIAC: Normal S1 and S2. No gallops. ABDOMEN: No masses. IMPRESSION: Status post lap, supraventricular tachycardia, carcinoma. PLAN: Continue PT and supportive care. Eventually, transfer to room. Job ID: [id number]
[2019-06-27] MEDS ORDERED: Albumin 25% 25 GM/100 ML BOT IVPB SCH (09:42)
[2019-06-27 09:43] LABS: Anion Gap 13 mmol/L (10-20); BUN (Urea Nitrogen) 38 mg/dL (8.4-25.7); Calc. Creatinine Clearance 46 mL/min (70-130); Calcium 7.9 mg/dL (7.8-10.44); Carbon Dioxide 23 mmol/L (23-31); Chloride 99 mmol/L (98-107); Estimated GFR-MDRD 39; Glucose 82 mg/dL (83-110); Potassium 4.4 mmol/L (3.5-5.1); Sodium 131 mmol/L (136-145)
[2019-06-27] MEDS ORDERED: Albumin 25% 200 ML ONE (09:45)
[2019-06-27] MEDS ORDERED: Sodium Chloride 0.9% 1,000 ML IV SCH (10:15)
--- NOTE | 2019-06-27 10:18 | PDOC.MOPN ---
Interval History: no complaints, awake and conversing. - Vital Signs Vital Signs: Vital Signs (12 hours) Temp Pulse Resp Pulse Ox 06/27/19 08:49 99 06/27/19 08:47 125 H 20 99 06/27/19 08:00 97.9 F 94 L 06/27/19 04:00 98.4 F 06/27/19 02:42 98 16 95 06/27/19 00:00 98.4 F 06/26/19 22:18 95 16 94 L Weight Admit Weight 186 lb 4.65 oz Weight 203 lb 0.732 oz Most Recent Monitor Data Heart Rate from ECG 108 NIBP 92/68 NIBP BP-Mean 76 Respiration from ECG 26 SpO2 96 - Physical Exam General: Alert HEENT: Atraumatic, PERRLA, EOMI, Mucous membr. moist/pink Lungs: Clear to auscultation Cardiovascular: Other (afib/fultter) Abdomen: Other (colostomy to drainage bag) Extremities: No clubbing, No cyanosis, No edema, Normal pulses, No tenderness/ swelling Neurological: Normal speech - Labs Result Diagrams: 06/26/19 05:00 06/27/19 09:00 Lab results: Laboratory Results - last 24 hr 06/27/19 09:00: Sodium 131 L, Potassium 4.4, Chloride 99, Carbon Dioxide 23, Anion Gap 13, BUN 38 H, Creatinine 1.71 H, Estimated GFR (MDRD) 39, Glucose 82 L , Calcium 7.9 Status: lab reviewed by me A/P - Problem (1) Constipation Current Visit: Yes Code(s): K59.00 - CONSTIPATION, UNSPECIFIED Status: Acute (2) Gastric cancer Current Visit: Yes Status: Acute - Plan Plan: Patient hypotensive at this time. Getting albumin bolus He understanding seriousness of condition. unlikely to get any further chemo. Consider hospice
--- NOTE | 2019-06-27 10:50 | PRG ---
DATE OF SERVICE: 06/27/2019 SERVICE: Nephrology. SUBJECTIVE: A 79-year-old male with metastatic gastric cancer, seen in followup for acute kidney injury. The patient had profuse drainage from the colostomy, which was felt to be serosanguineous peritoneal fluid. Also had poor oral intake yesterday. Abdominal distention and discomfort have improved with passage of some red stool from the ostomy. No nausea or vomiting. Reported some abdominal cramps on mild oral intake earlier today. OBJECTIVE: VITAL SIGNS: Temperature 97.9, pulse 125, respiratory rate 20, SpO2 of 99% on 2 L nasal cannula, blood pressure is 92/68. GENERAL: Chronically ill-looking elderly male, in no obvious distress. HEENT: Normocephalic, atraumatic. Oral mucosa is dry. CARDIOVASCULAR: Irregular rhythm and rate with normal heart sounds 1 and 2. RESPIRATORY: Fair air entry bilaterally with some transmitted breath sounds. GI: Full, soft, and nontender. Bowel sound is hypoactive. Midline surgical wound as well as right upper quadrant colostomy with bag filled with poop. UROGENITAL: Hammer catheter is in place. Penile edema noted as well. EXTREMITIES: Mild bilateral leg edema noted. REQUIREMENTS MANAGER: Conscious and alert and oriented x3 with appropriate mental status. DIAGNOSTIC DATA: BMP showed sodium 131, potassium 4.4, chloride 99, CO2 of 23, BUN 38, creatinine 1.71, glucose 82, calcium 7.1. Note that yesterday, sodium was 135, potassium 4.2, chloride 101, CO2 of 25, BUN 33, creatinine 1.42. ASSESSMENT: 1. Acute kidney injury: Recurrent, due to hemodynamic factors related to volume depletion as well as hypoperfusion. Contribution from NSAID use also is noted. Initial MARGARET has improved. Current MARGARET with creatinine going up from 1.42 yesterday to 1.71 is purely due to volume contraction. 2. Hyponatremia: Acute. Sodium went down from 135 yesterday to 131. This is due to volume contraction with appropriate ADH secretion. 3. Hypotension: Due to volume contraction. 4. Paroxysmal atrial tachycardia. 5. Intestinal obstruction, status post exploratory laparotomy with colostomy. 6. Moderate protein-calorie malnutrition. 7. Metastatic gastric cancer. PLAN: 1. We will treat the patient with albumin 50 g as well as NS 1 L bolus for hypotension and tachycardia associated with acute kidney injury. 2. We will monitor vitals closely. 3. May needs IV fluid if oral intake remains poor. 4. We will also start the patient on MiraLAX given that stool is hard. Further treatment as per primary attending. 5. We will recheck renal function test in the morning. Job ID: [id number]
[2019-06-27] MEDS: Flecainide 50 MG TAB PO SCH ×2 (12:18→20:13)
--- NOTE | 2019-06-27 13:11 | PDOC.PALCO ---
Palliative Care Consult - Consult Details Requesting Physician: Edwige MEJIA Reason for Consult: goals of care, advance directives assistance, assistance with communication prognosis/disease Family Members Present: None at time of assessment - Pertinent HPI 79 year old male who prior to admission was living independently at home. On day of admission records indicate he had a sudden onset of chills, and became febrile in a short period of time. He later reported he had productive cough three days prior to the febrile episode. They arrived at the emergency room for evaluation. In history patient reported weight loss over the past few months and had not had a BM x one week. Had been undergoing treatment fo rmalignant gastric ulcer. Mr Anam was initially admitted for fever, anemia, atrial flutter, PE versis pnumonia. During hospital course patient has had continue decline related to multiple morbidities and oncology feels unlikely that chemo is an option. - Pertinent PMH HTN, A flutter, Gastric cancer, GERD - Social History Smoking Status: Unknown if ever smoked Alcohol Use: none Drug Use History: none Living Situation: - Medications MAR Reviewed: Yes - Allergies Allergies/Adverse Reactions: Allergies Allergy/AdvReac Type Severity Reaction Status Date / Time No Known Allergies Allergy Verified 05/19/19 02:03 - Subjective Sleeping, arousable, but returned to sleep state. - ROS Constitutional: weakness Eyes: other (wears glasses, negative for visual disturbance) ENT: other (negative for congestion, difficulity swallowing) Respiratory: other (negative for shortness of breath) Musculoskeletal: limited mobility Neurological: other (negative for dizziness) Psychological: depression (as per ) - Objective Vital Signs: Vital Signs - Most Recent Temp Pulse Resp BP Pulse Ox 98.0 F 90 16 111/82 97 06/27/19 11:00 06/27/19 12:10 06/27/19 12:10 06/26/19 14:22 06/27/19 12:10 Palliative Performance Scale: 40 - Physical Exam Constitutional: ill appearing HEENT: EOMI, sclera anicteric Respiratory: unlabored breathing, cough Cardiovascular: no rub, RRR (colostomy) Gastrointestinal: positive bowel sounds Musculoskeletal: pulses present, edema present Neurology: moves all 4 limbs, no focal deficits Skin: cap refill <2 seconds, fragile - Problem List (1) Palliative care encounter Code(s): Z51.5 - ENCOUNTER FOR PALLIATIVE CARE Current Visit: Yes Status: Acute (2) Gastric cancer Current Visit: Yes Status: Acute (3) Generalized weakness Code(s): R53.1 - WEAKNESS Current Visit: No Status: Acute (4) Physical deconditioning Code(s): R53.81 - OTHER MALAISE Current Visit: No Status: Acute (5) Gastric cancer Current Visit: No Status: Chronic (6) HTN (hypertension) Code(s): I10 - ESSENTIAL (PRIMARY) HYPERTENSION Current Visit: No Status: Chronic Qualifiers: Hypertension type: essential hypertension Qualified Code(s): I10 - Essential (primary) hypertension - Plan/Recommendations Plan: Palliative Care following patient, discussing goals of care related to limited options to manage cancer and multiple comorbidities. Transitioned patient to resuscitation measures that are cardiac only. Palliative Care will continue to discuss goals of care with Mr Mendieta that are inline with realistic outcomes for disease trajectory and his wishes. Please also refer to Palliative Care RN noted under note section. [50] minutes spent on this encounter with >50% of the time in counseling and coordination of care. Thank you for this very appropriate consult.
--- NOTE | 2019-06-27 13:12 | PDOC.HOSPP ---
- Subjective Encounter Date: 06/27/19 Encounter Time: 11:00 Subjective: this morning pt had low BP and tachycardia, but pt was asymptomatic, he had more output through colostomy - Objective Vital Signs & Weight: Vital Signs (12 hours) Temp Pulse Resp Pulse Ox 06/27/19 12:10 90 16 97 06/27/19 11:00 98.0 F 06/27/19 08:49 99 06/27/19 08:47 125 H 20 99 06/27/19 08:00 97.9 F 94 L 06/27/19 04:00 98.4 F 06/27/19 02:42 98 16 95 Weight Admit Weight 186 lb 4.65 oz Weight 203 lb 0.732 oz Most Recent Monitor Data Heart Rate from ECG 92 NIBP 113/72 NIBP BP-Mean 85 Respiration from ECG 17 SpO2 98 I&O: 06/26/19 06/27/19 06/28/19 06:59 06:59 06:59 Intake Total 091 108 0529 Output Total 880 2815 60 Balance 80 -2515 1100 Result Diagrams: 06/26/19 05:00 06/27/19 09:00 Radiology Reviewed by me: Yes EKG Reviewed by me: Yes Hospitalist ROS - Review of Systems Constitutional: reports: weakness. denies: fever, chills, sweats, malaise, other Respiratory: reports: cough. denies: dry, shortness of breath, hemoptysis, SOB with excertion, pleuritic pain, sputum, wheezing, other Cardiovascular: denies: chest pain, palpitations, orthopnea, paroxysmal noc. dyspnea, edema, light headedness, other Gastrointestinal: denies: nausea, vomiting, abdominal pain, diarrhea, constipation, melena, hematochezia, other Genitourinary: denies: dysuria, frequency, incontinence, hematuria, retention, other Musculoskeletal: denies: neck pain, shoulder pain, arm pain, back pain, hand pain, leg pain, foot pain, other - Medication Medications: Active Medications Generic Name Dose Route Start Last Admin Trade Name Freq PRN Reason Stop Dose Admin Acetaminophen 1,000 mg 06/21/19 20:18 06/23/19 09:33 Tylenol PO 1,000 mg Q6H PRN Administration Moderate to Severe Pain (6-10) Albuterol/Ipratropium 3 ml 06/22/19 10:30 06/27/19 12:10 Duoneb NEB 3 ml [id number] LINDA Administration Flecainide Acetate 50 mg 06/26/19 21:00 06/27/19 12:18 Tambocor PO Not Given Q12HR LINDA Metoprolol Succinate 25 mg 06/27/19 09:00 06/27/19 09:25 Toprol Xl PO Not Given DAILY LINDA Pantoprazole Sodium 40 mg 06/24/19 09:00 06/27/19 09:55 Protonix PO 40 mg DAILY LINDA Administration - Exam General Appearance: NAD, ill appearing Eye: PERRL, anicteric sclera ENT: normocephalic atraumatic, no oropharyngeal lesions Neck: supple, symmetric, no JVD Heart: RRR, no murmur, no gallops, no rubs Heart - other findings: tachycardia Respiratory: no wheezes, no rales Gastrointestinal: soft Gastrointestinal - other findings: distended, colostomy+ Extremities: no cyanosis, no clubbing, 2+ LE edema Skin: normal turgor Neurological: no focal deficits Musculoskeletal: normal tone, diffuse muscle atrophy Psychiatric: normal affect, normal behavior Hosp A/P (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 - DISSEMINATED MALIGNANT NEOPLASM, UNSPECIFIED Status: Acute (2) Generalized weakness Code(s): R53.1 - WEAKNESS Status: Acute (3) Physical deconditioning Code(s): R53.81 - OTHER MALAISE Status: Acute (4) Thrombocytopenia Code(s): D69.6 - THROMBOCYTOPENIA, UNSPECIFIED Status: Acute (5) Atrial flutter Code(s): I48.92 - UNSPECIFIED ATRIAL FLUTTER Status: Chronic Qualifiers: Atrial flutter type: unspecified Qualified Code(s): I48.92 - Unspecified atrial flutter (6) Gastric cancer Status: Chronic (7) HTN (hypertension) Code(s): I10 - ESSENTIAL (PRIMARY) HYPERTENSION Status: Chronic Qualifiers: Hypertension type: essential hypertension Qualified Code(s): I10 - Essential (primary) hypertension (8) Macrocytic anemia Code(s): D53.9 - NUTRITIONAL ANEMIA, UNSPECIFIED Status: Chronic - Plan old records reviewed/req 06/27/19 for his low BP, albumin given medication reviewed and continue to provide symptomatic care and supportive care palliative care on case surgery following cardiology following, continue tambocore for now prognosis is poor
--- NOTE | 2019-06-27 14:45 | PDOC.EP ---
- Subjective Date: 06/27/19 Time: 09:00 Interval History: follow up for atrial arrhythmia management. had AFib RVR over weekend and started on PO flecainide. Continues to have some rhythm irregularity and tachycardia. Denies heart racing, palpitations, chest pain, passing out, or stroke like symptoms. + dizziness - Objective Allergies/Adverse Reactions: Allergies Allergy/AdvReac Type Severity Reaction Status Date / Time No Known Allergies Allergy Verified 05/19/19 02:03 Current Medications Acetaminophen (Tylenol) 1,000 mg PO Q6H PRN PRN Reason: Moderate to Severe Pain (6-10) Last Admin: 06/23/19 09:33 Dose: 1,000 mg Albuterol/Ipratropium (Duoneb) 3 ml NEB [id number] Last Admin: 06/27/19 12:10 Dose: 3 ml Flecainide Acetate (Tambocor) 50 mg PO Q12HR [facility] Last Admin: 06/27/19 12:18 Dose: Not Given Metoprolol Succinate (Toprol Xl) 25 mg PO DAILY [facility] Last Admin: 06/27/19 09:25 Dose: Not Given Pantoprazole Sodium (Protonix) 40 mg PO DAILY [facility] Last Admin: 06/27/19 09:55 Dose: 40 mg Polyethylene Glycol (Miralax) 17 gm PO DAILY [facility] Sodium Chloride (Flush - Normal Saline) 10 ml IVF Q12HR PRN PRN Reason: Saline Flush Sodium Chloride (Flush - Normal Saline) 10 ml IVF PRN PRN PRN Reason: Saline Flush Tramadol HCl (Ultram) 50 mg PO Q4H PRN PRN Reason: Mild Pain (1-3) Vital Signs & Weight: Vital Signs Temp Pulse Resp Pulse Ox 06/27/19 12:10 90 16 97 06/27/19 11:00 98.0 F 06/27/19 08:49 99 06/27/19 08:47 125 H 20 99 06/27/19 08:00 97.9 F 94 L 06/27/19 04:00 98.4 F 06/27/19 02:42 98 16 95 Admit Weight 186 lb 4.65 oz Weight 203 lb 0.732 oz I/O: I/O 06/26/19 06/27/19 06/28/19 06:59 06:59 06:59 Intake Total 574 864 6213 Output Total 880 2815 80 Balance 80 -8636 4834 - Quality Measures Condition: Atrial Fibrillation/Flutter (hx or current) - Medication Contraindications No Anticoagulant reason: Anticoagulant not tolerated - Physical Exam General: alert & oriented x3, no apparent distress, affect appropriate HEENT: mucus membranes moist, EOMI, pallor, PERRL. negative: jaundice Neck: supple neck, midline trachea, no JVD/HJR Cardiology: regular rate (occasional tachycardia) Lungs: clear to auscultation, no wheeze, rales, rhonchi Neurology: cranial nerve 2-12 intact, grossly intact - Labs Result Diagrams: 06/26/19 05:00 06/27/19 09:00 - EKG Interpretation EKG Method: Telemetry EKG shows: Sinus rhythm (PACs, PAT) - Assessment/Plan Assessment/Plan: 1. Atrial flutter - s/p CTI right atrial flutter ablation. - stopped flecainide. plan to resume if atrial fibrillation is seen - rhythm stable overnight 2. Indication of anticoagulation - cannot take due to prior severe GI bleeding while on eliquis related to gastric neoplasm 3. Gastric neoplasm -per oncology No recurrent CTI dependent flutter s/p ablation. Unable to take OAC/ASA due to prior bleed and not cleared by GI to our knowledge. Went into AFib with RVR over the weekend and was started on PO flecainide. Continues to have PAT runs with frequent PACs. Colostomy starting to show output. Continue flecainide. If converts to A Fib and sustains, will transition him to IV amiodarone.
--- NOTE | 2019-06-27 15:27 | PDOC.GSPN ---
Surgery Progress Note: Subj - Subjective Narrative: Feels slightly improved after draining ascites yesterday around ostomy Surgery Progress Note: Obj - Vital signs Vital signs: Vital Signs - Most Recent Temp Pulse Resp BP Pulse Ox 98.0 F 90 16 111/82 97 06/27/19 11:00 06/27/19 12:10 06/27/19 12:10 06/26/19 14:22 06/27/19 12:10 - Physical Exam General: no distress Wound: healing well, ostomy/colostomy (air/stool) Surgery Progress Note: Results - Labs Result Diagrams: 06/26/19 05:00 06/27/19 09:00 Lab results: Laboratory Results - last 24 hr 06/27/19 09:00 Sodium 131 L Potassium 4.4 Chloride 99 Carbon Dioxide 23 Anion Gap 13 BUN 38 H Creatinine 1.71 H Estimated GFR (MDRD) 39 Glucose 82 L Calcium 7.9 Surgery Progress Note: A/P - Problem (1) Carcinomatosis Current Visit: Yes Code(s): C80.0 - DISSEMINATED MALIGNANT NEOPLASM, UNSPECIFIED Status: Acute - Plan Plan: Advance diet as kimber He is likely to continue to drain ascites around the colostomy
[2019-06-27] MEDS ORDERED: BIOTENE MOUTH SPRAY 44.3 ML MM PRN (16:24)
--- NOTE | 2019-06-27 17:06 | PDOC.CPN ---
- Subjective Date: 06/27/19 Time: 17:05 Interval history: He feels better after draining ascitis from ostomy. He remains in sinus. - Review of Systems General: denies: fever/chills, weight/appetite/sleep changes, night sweats, fatigue Respiratory: reports: exercise intolerance. denies: cough, congestion, shortness of breath Cardiovascular: reports: edema. denies: chest pain, palpitation, paroxysmal nocturnal dyspnea, orthopnea Gastrointestinal: reports: constipation, abd pain. denies: nausea, vomiting, diarrhea, GI bleeding Musculoskeletal: denies: pain, tenderness, stiffness, swelling, arthritis/ arthralgias Neurological: reports: weakness. denies: numbness, syncope, seizure - Objective Allergies/Adverse Reactions: Allergies Allergy/AdvReac Type Severity Reaction Status Date / Time No Known Allergies Allergy Verified 05/19/19 02:03 Visit Medications: Current Medications Acetaminophen (Tylenol) 1,000 mg PO Q6H PRN PRN Reason: Moderate to Severe Pain (6-10) Last Admin: 06/23/19 09:33 Dose: 1,000 mg Albuterol/Ipratropium (Duoneb) 3 ml NEB [id number] [facility] Last Admin: 06/27/19 15:29 Dose: 3 ml Flecainide Acetate (Tambocor) 50 mg PO Q12HR [facility] Last Admin: 06/27/19 12:18 Dose: Not Given Metoprolol Succinate (Toprol Xl) 25 mg PO DAILY [facility] Last Admin: 06/27/19 09:25 Dose: Not Given Miscellaneous Medication (Biotene Moisturizing Mouth) 0 ml MM PRN PRN PRN Reason: Dry Mouth Pantoprazole Sodium (Protonix) 40 mg PO DAILY [facility] Last Admin: 06/27/19 09:55 Dose: 40 mg Polyethylene Glycol (Miralax) 17 gm PO DAILY [facility] Sodium Chloride (Flush - Normal Saline) 10 ml IVF Q12HR PRN PRN Reason: Saline Flush Sodium Chloride (Flush - Normal Saline) 10 ml IVF PRN PRN PRN Reason: Saline Flush Tramadol HCl (Ultram) 50 mg PO Q4H PRN PRN Reason: Mild Pain (1-3) Vital Signs & Weight: Vital Signs Temp Pulse Resp Pulse Ox 06/27/19 16:00 97.7 F 06/27/19 15:29 87 16 99 06/27/19 12:10 90 16 97 06/27/19 11:00 98.0 F 06/27/19 08:49 99 06/27/19 08:47 125 H 20 99 06/27/19 08:00 97.9 F 94 L Admit Weight 186 lb 4.65 oz Weight 203 lb 0.732 oz - Medication Contraindications No Anticoagulant reason: Anticoagulant not tolerated - Physical Exam General: alert & oriented x3 HEENT: mucus membranes moist Neck: supple neck Cardiac: regular rate and rhythm, no murmur Lungs: normal breath sounds Neuro: grossly intact Abdomen: active bowel sounds Extremities: 2+ LE edema Skin: clear Musculoskeletal: no pain - Labs Result Diagrams: 06/26/19 05:00 06/27/19 09:00 - Telemetry Sinus rhythms and dysrhythmias: sinus rhythm - Assessment/Plan Assessment/Plan: 1. Atrial fibrillation/Atrial flutter. 2. S/P Flutter ablation 3. Metastatic gastric Ca 4. Left colon obstruction, s/p Exp lap with omental implant and colostomy. 5. Anemia 6. Left hydronephrosis 7. Thrombocytopenia PLAN: - Back in sinus, Hold flecainide for now. May need IV amiodarone. - No anticoagulation due to bleeding issues in the past from metastatic disease. - Severely ill and would not be unexpected.
--- NOTE | 2019-06-27 17:44 | EKG ---
Test Reason : Blood Pressure : / mmHG Vent. Rate : 096 BPM Atrial Rate : 096 BPM P-R Int : 000 ms QRS Dur : 098 ms QT Int : 352 ms P-R-T Axes : 000 -11 -06 degrees QTc Int : 444 ms Sinus rhythm with 1st degree A-V block Inferior infarct , age undetermined Abnormal ECG When compared with ECG of 20-JUN-2019 13:34, (Unconfirmed) Sinus rhythm has replaced Ectopic atrial rhythm Inferior infarct is now Present Confirmed by DR. Michaela CARMONA ([id number]) on 06/27/2019 5:43:46 PM Referred By: [facility] Confirmed By:DR. Michaela CARMONA
[2019-06-28 06:23] LABS: Hemoglobin 8.1 g/dL (14.0-18.0); Mean Corpuscular HGB CONC 32.2 g/dL (32.0-36.0); Mean Corpuscular Hemoglobin 34.1 pg (27.0-31.0); Platelet Count 89 thou/uL (130-400); RBC Distribution Width 14.3 % (11.5-14.5); Red Blood Cell (RBC) Count 2.38 mill/uL (4.70-6.10); White Blood Cell (WBC) Count 17.5 thou/uL (4.8-10.8)
[2019-06-28 06:40] LABS: Albumin 2.8 g/dL (3.4-4.8); Anion Gap 14 mmol/L (10-20); BUN (Urea Nitrogen) 43 mg/dL (8.4-25.7); Calc. Creatinine Clearance 46 mL/min (70-130); Carbon Dioxide 22 mmol/L (23-31); Chloride 100 mmol/L (98-107); Estimated GFR-MDRD 39; Glucose 95 mg/dL (83-110); Phosphorus 3.8 mg/dL (2.3-4.7); Potassium 4.1 mmol/L (3.5-5.1); Sodium 132 mmol/L (136-145)
[2019-06-28] MEDS: Flecainide 50 MG TAB PO SCH (08:13)
[2019-06-28] MEDS: Polyethylene Glycol 3350 17 GM Packet PO SCH (08:14)
--- NOTE | 2019-06-28 08:43 | PRG ---
DATE OF SERVICE: 06/28/2019 SUBJECTIVE: This morning, he is awake, alert, responsive, less pain. OBJECTIVE: VITAL SIGNS: Temperature 97, pulse 92, respirations 18, saturations are 97% on 2 L, and blood pressure 112/71. CHEST: No wheezing or crackles. CARDIAC: Normal S1 and S2. No gallops. ABDOMEN: Soft. LABORATORY DATA: Creatinine is 1.72. White count 17,000. ASSESSMENT: 1. Leptomeningeal carcinomatosis. 2. Respiratory failure. 3. Severe deconditioning. 4. Supraventricular tachycardia. 5. Flutter. PLAN: Continue PT, supportive care. Pulmonary will follow while in the MICU. Job ID: [id number]
--- NOTE | 2019-06-28 14:54 | PDOC.EP ---
- Subjective Date: 06/28/19 Time: 08:00 Interval History: Patient resting in bed. + dizziness. Refused medications this AM per nurse. - heart racing, palpitations, chest pain, passing out. Significant ostomy output overnight. - Objective Allergies/Adverse Reactions: Allergies Allergy/AdvReac Type Severity Reaction Status Date / Time No Known Allergies Allergy Verified 05/19/19 02:03 Current Medications Acetaminophen (Tylenol) 1,000 mg PO Q6H PRN PRN Reason: Moderate to Severe Pain (6-10) Last Admin: 06/23/19 09:33 Dose: 1,000 mg Albuterol/Ipratropium (Duoneb) 3 ml NEB [id number] [facility] Last Admin: 06/28/19 14:40 Dose: 3 ml Flecainide Acetate (Tambocor) 50 mg PO Q12HR [facility] Last Admin: 06/28/19 08:13 Dose: Not Given Metoprolol Succinate (Toprol Xl) 25 mg PO DAILY [facility] Last Admin: 06/28/19 08:13 Dose: Not Given Miscellaneous Medication (Biotene Moisturizing Mouth) 0 ml MM PRN PRN PRN Reason: Dry Mouth Last Admin: 06/27/19 17:15 Dose: 1 applic Pantoprazole Sodium (Protonix) 40 mg PO DAILY [facility] Last Admin: 06/28/19 08:13 Dose: Not Given Polyethylene Glycol (Miralax) 17 gm PO DAILY [facility] Last Admin: 06/28/19 08:14 Dose: Not Given Sodium Chloride (Flush - Normal Saline) 10 ml IVF Q12HR PRN PRN Reason: Saline Flush Sodium Chloride (Flush - Normal Saline) 10 ml IVF PRN PRN PRN Reason: Saline Flush Tramadol HCl (Ultram) 50 mg PO Q4H PRN PRN Reason: Mild Pain (1-3) Vital Signs & Weight: Vital Signs Temp Pulse Pulse Pulse Pulse Resp BP 06/28/19 14:40 139 H 22 H 06/28/19 11:24 98.2 F 06/28/19 11:12 114 H 18 06/28/19 09:31 112 H 112 H 106 H 115/78 06/28/19 07:36 06/28/19 07:34 97.8 F 06/28/19 07:24 06/28/19 07:22 92 18 06/28/19 03:38 97.9 F BP BP Pulse Ox Pulse Ox Pulse Ox Pulse Ox 06/28/19 14:40 96 06/28/19 11:24 06/28/19 11:12 96 06/28/19 09:31 95/68 100/66 98 95 96 06/28/19 07:36 97 06/28/19 07:34 06/28/19 07:24 99 06/28/19 07:22 98 06/28/19 03:38 Admit Weight 186 lb 4.65 oz Weight 204 lb 1.6 oz I/O: I/O 06/27/19 06/28/19 06/29/19 06:59 06:59 06:59 Intake Total 300 1620 Output Total 9508 0374 465 [facility] -5355 -2209 -600 - Quality Measures Condition: Atrial Fibrillation/Flutter (hx or current) - Medication Contraindications No Anticoagulant reason: Anticoagulant not tolerated - Physical Exam General: alert & oriented x3, appears well, no apparent distress, speech clear, affect appropriate HEENT: mucus membranes moist, normocephaly Neck: supple neck, midline trachea, no JVD/HJR, no bruit Cardiology: regular rhythm, tachycardia Lungs: clear to auscultation, normal breath sounds, no wheeze, rales, rhonchi Neurology: cranial nerve 2-12 intact, grossly intact, no lateralizing findings Skin: groin sites stable - Labs Result Diagrams: 06/28/19 06:10 06/28/19 06:10 - EKG Interpretation EKG shows: Sinus rhythm, Sinus tachycardia (PAT runs) - Assessment/Plan Assessment/Plan: 1. Atrial flutter - s/p CTI right atrial flutter ablation. - stopped flecainide. plan to resume if atrial fibrillation is seen - rhythm stable overnight 2. Indication of anticoagulation - cannot take due to prior severe GI bleeding while on eliquis related to gastric neoplasm 3. Gastric neoplasm -per oncology No recurrent CTI dependent flutter s/p ablation. Unable to take OAC/ASA due to prior bleed and not cleared by GI to our knowledge. Went into AFib with RVR over the weekend and was started on PO flecainide. Continues to have PAT runs with frequent PACs. Refused flecainide and toprol this AM and HR shows increased PAT runs/PAC activity as a result. Discussed with patient. Continue flecainide. If converts to A Fib and sustains, will transition him to IV amiodarone.
--- NOTE | 2019-06-28 14:55 | PDOC.HOSPP ---
- Subjective Encounter Date: 06/28/19 Encounter Time: 07:30 Subjective: Patient seen and examined. No new complaints. No overnight events - Objective Vital Signs & Weight: Vital Signs (12 hours) Temp Pulse Pulse Pulse Pulse Resp BP 06/28/19 14:40 139 H 22 H 06/28/19 11:24 98.2 F 06/28/19 11:12 114 H 18 06/28/19 09:31 112 H 112 H 106 H 115/78 06/28/19 07:36 06/28/19 07:34 97.8 F 06/28/19 07:24 06/28/19 07:22 92 18 06/28/19 03:38 97.9 F BP BP Pulse Ox Pulse Ox Pulse Ox Pulse Ox 06/28/19 14:40 96 06/28/19 11:24 06/28/19 11:12 96 06/28/19 09:31 95/68 100/66 98 95 96 06/28/19 07:36 97 06/28/19 07:34 06/28/19 07:24 99 06/28/19 07:22 98 06/28/19 03:38 Weight Admit Weight 186 lb 4.65 oz Weight 204 lb 1.6 oz Most Recent Monitor Data Heart Rate from ECG 119 NIBP 92/74 NIBP BP-Mean 80 Respiration from ECG 20 SpO2 97 I&O: 06/27/19 06/28/19 06/29/19 06:59 06:59 06:59 Intake Total 300 1620 Output Total 2818 3365 600 Balance -2515 -1745 -600 Result Diagrams: 06/28/19 06:10 06/28/19 06:10 Hospitalist ROS - Review of Systems ENT: denies: ear pain, ear discharge, nose pain, nose discharge, nose congestion , mouth pain, mouth swelling, throat pain, throat swelling, other Respiratory: denies: cough, dry, shortness of breath, hemoptysis, SOB with excertion, pleuritic pain, sputum, wheezing, other Cardiovascular: denies: chest pain, palpitations, orthopnea, paroxysmal noc. dyspnea, edema, light headedness, other Gastrointestinal: denies: nausea, vomiting, abdominal pain, diarrhea, constipation, melena, hematochezia, other Genitourinary: denies: dysuria, frequency, incontinence, hematuria, retention, other Musculoskeletal: denies: neck pain, shoulder pain, arm pain, back pain, hand pain, leg pain, foot pain, other - Medication Medications: Active Medications Generic Name Dose Route Start Last Admin Trade Name Freq PRN Reason Stop Dose Admin Acetaminophen 1,000 mg 06/21/19 20:18 06/23/19 09:33 Tylenol PO 1,000 mg Q6H PRN Administration Moderate to Severe Pain (6-10) Albuterol/Ipratropium 3 ml 06/22/19 10:30 06/28/19 14:40 Duoneb NEB 3 ml [id number] LINDA Administration Flecainide Acetate 50 mg 06/26/19 21:00 06/28/19 08:13 Tambocor PO Not Given Q12HR [facility] Metoprolol Succinate 25 mg 06/27/19 09:00 06/28/19 08:13 Toprol Xl PO Not Given DAILY [facility] Miscellaneous Medication 0 ml 06/27/19 16:24 06/27/19 17:15 Biotene Moisturizing Mouth MM 1 applic PRN PRN Administration Dry Mouth Pantoprazole Sodium 40 mg 06/24/19 09:00 06/28/19 08:13 Protonix PO Not Given DAILY [facility] Polyethylene Glycol 17 gm 06/28/19 09:00 06/28/19 08:14 Miralax PO Not Given DAILY [facility] - Exam General Appearance: NAD, awake alert Eye: PERRL, anicteric sclera ENT: normocephalic atraumatic, no oropharyngeal lesions Neck: supple, symmetric, no JVD, no thyromegaly Heart: RRR, no murmur, no gallops, no rubs Respiratory: CTAB, no wheezes, no rales, no ronchi Gastrointestinal: soft, non-tender, non-distended, normal bowel sounds Extremities: no cyanosis, no clubbing, no edema Skin: normal turgor, no lesions Neurological: no focal deficits Musculoskeletal: normal tone, normal strength Psychiatric: normal affect, normal behavior Hosp A/P (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 - DISSEMINATED MALIGNANT NEOPLASM, UNSPECIFIED Status: Acute (2) Generalized weakness Code(s): R53.1 - WEAKNESS Status: Acute (3) Physical deconditioning Code(s): R53.81 - OTHER MALAISE Status: Acute (4) Thrombocytopenia Code(s): D69.6 - THROMBOCYTOPENIA, UNSPECIFIED Status: Acute (5) Atrial flutter Code(s): I48.92 - UNSPECIFIED ATRIAL FLUTTER Status: Chronic Qualifiers: Qualified Code(s): I48.92 - Unspecified atrial flutter (6) Gastric cancer Status: Chronic (7) HTN (hypertension) Code(s): I10 - ESSENTIAL (PRIMARY) HYPERTENSION Status: Chronic Qualifiers: Qualified Code(s): I10 - Essential (primary) hypertension (8) Macrocytic anemia Code(s): D53.9 - NUTRITIONAL ANEMIA, UNSPECIFIED Status: Chronic - Plan old records reviewed/req 06/27/19 for his low BP, albumin given medication reviewed and continue to provide symptomatic care and supportive care palliative care on case surgery following cardiology following, continue tambocore for now prognosis is poor 06/28/19 continue current treatment continue tambocor for now supportive care
--- NOTE | 2019-06-28 16:56 | PRG ---
DATE OF SERVICE: 06/28/2019 SERVICE: Nephrology. SUBJECTIVE: A 79-year-old male with known history of metastatic gastric cancer, seen in followup for acute on chronic kidney disease. In the last two days, the patient has had increased drainage around the colostomy initially from peritoneal fluid of more than 2 L and then followed by high-output colostomy. The patient is negative in the last 2 days in intake and output. Reports feeling better. Oral intake is beginning to improve. No nausea, no vomiting or fever. Admitted to some cough. OBJECTIVE: VITAL SIGNS: Temperature 97.8, pulse 102, respiratory rate 16, SpO2 of 97% on 2 L nasal cannula, blood pressure is 108/67. GENERAL: Chronically ill-looking elderly in no obvious distress. Afebrile. HEENT: Normocephalic, atraumatic. Oral mucosa is moist. CARDIOVASCULAR: Irregular rhythm and rate. Tachycardic. RESPIRATORY: Fair air entry bilaterally with some transmitted breath sounds. GI: Left upper quadrant colostomy as well as median surgical incision noted. Bowel sound is normoactive. EXTREMITIES: Moderate bilateral leg edema noted. 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 DIAGNOSTIC DATA: CBC showed WBC count of 17.5, hemoglobin of 8.1, platelet of 89. Renal function panel showed sodium 132, potassium 4.1, chloride 100, CO2 of 22, BUN 43, creatinine 1.72, glucose 95, calcium 8.0, phosphorus 3.8, albumin 2.8. ASSESSMENT: 1. Acute kidney injury: Due to hemodynamic factors related to volume depletion from high-output colostomy as well as leakage of serous fluid around the ostomy. The patient is in negative balance in the last 2 days. Creatinine has improved from a peak of 2.02 to a rhina of 1.42 before going up following increased GI losses. 2. Hyponatremia: Due to volume contraction with appropriate ADH secretion. 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 4. Metastatic gastric cancer. 5. Acute on chronic anemia due to acute on chronic gastrointestinal blood losses. 6. Chronic bilateral leg edema due to hypoalbuminemia, venous insufficiency related to metastatic cancer. 7. Moderate to severe protein-calorie malnutrition. 8. Cachexia of malignancy. PLAN: 1. We will expand intravascular space with albumin. Given leg edema, we will avoid crystalloids. 2. [place] oral intake advised. 3. We will recheck renal function in the morning. Further treatment to follow depending on hospital course. Palliative Care is following patient. The patient's prognosis seems poor or at least guarded. The patient may be well served with hospice as the gastric cancer is metastatic. We will however continue to follow patient while still in the hospital. Job ID: [id number]
[2019-06-28] MEDS: Albumin 25% 25 GM/100 ML BOT IVPB SCH ×2 (17:44→23:49)
--- NOTE | 2019-06-28 19:08 | PDOC.CPN ---
- Subjective Date: 06/28/19 Time: 19:05 Interval history: He is back in afib RVR. He refused all his PO medications this morning. - Review of Systems General: reports: weight/appetite/sleep changes. denies: fever/chills, night sweats, fatigue Respiratory: reports: shortness of breath. denies: cough, congestion, exercise intolerance Cardiovascular: reports: chest pain. denies: palpitation, edema, paroxysmal nocturnal dyspnea, orthopnea Gastrointestinal: reports: nausea, vomiting. denies: diarrhea, constipation, abd pain, GI bleeding Musculoskeletal: reports: pain. denies: tenderness, stiffness, swelling, arthritis/arthralgias Neurological: reports: weakness. denies: numbness, syncope, seizure - Objective Allergies/Adverse Reactions: Allergies Allergy/AdvReac Type Severity Reaction Status Date / Time No Known Allergies Allergy Verified 05/19/19 02:03 Visit Medications: Current Medications Acetaminophen (Tylenol) 1,000 mg PO Q6H PRN PRN Reason: Moderate to Severe Pain (6-10) Last Admin: 06/23/19 09:33 Dose: 1,000 mg Albumin Human (Albumin 25%) 25 gm IVPB 0500,1100,1700,2300 [facility] Stop: 06/29/19 11:01 Last Admin: 06/28/19 17:44 Dose: 25 gm Albuterol/Ipratropium (Duoneb) 3 ml NEB [id number] [facility] Last Admin: 06/28/19 18:52 Dose: 3 ml Amiodarone HCl 450 mg/ (Dextrose/Water) 259 mls @ 0 mls/hr IVPB INF [facility]; Protocol Metoprolol Succinate (Toprol Xl) 25 mg PO DAILY [facility] Last Admin: 06/28/19 08:13 Dose: Not Given Miscellaneous Medication (Biotene Moisturizing Mouth) 0 ml MM PRN PRN PRN Reason: Dry Mouth Last Admin: 06/27/19 17:15 Dose: 1 applic Pantoprazole Sodium (Protonix) 40 mg PO DAILY [facility] Last Admin: 06/28/19 08:13 Dose: Not Given Polyethylene Glycol (Miralax) 17 gm PO DAILY [facility] Last Admin: 06/28/19 08:14 Dose: Not Given Sodium Chloride (Flush - Normal Saline) 10 ml IVF Q12HR PRN PRN Reason: Saline Flush Sodium Chloride (Flush - Normal Saline) 10 ml IVF PRN PRN PRN Reason: Saline Flush Tramadol HCl (Ultram) 50 mg PO Q4H PRN PRN Reason: Mild Pain (1-3) Vital Signs & Weight: Vital Signs Temp Pulse Pulse Pulse Pulse Resp BP 06/28/19 18:54 06/28/19 18:52 06/28/19 15:36 98.4 F 06/28/19 14:40 139 H 22 H 06/28/19 11:24 98.2 F 06/28/19 11:12 114 H 18 06/28/19 09:31 112 H 112 H 106 H 115/78 06/28/19 07:36 06/28/19 07:34 97.8 F 06/28/19 07:24 06/28/19 07:22 92 18 BP BP Pulse Ox Pulse Ox Pulse Ox Pulse Ox 06/28/19 18:54 94 L 06/28/19 18:52 93 L 06/28/19 15:36 06/28/19 14:40 96 06/28/19 11:24 06/28/19 11:12 96 06/28/19 09:31 95/68 100/66 98 95 96 06/28/19 07:36 97 06/28/19 07:34 06/28/19 07:24 99 06/28/19 07:22 98 Admit Weight 186 lb 4.65 oz Weight 204 lb 1.6 oz - Medication Contraindications No Anticoagulant reason: Anticoagulant not tolerated - Physical Exam General: cachectic HEENT: normocephaly Neck: supple neck Cardiac: irregularly regular Lungs: clear to auscultation Neuro: no lateralizing findings Abdomen: active bowel sounds Extremities: no edema Skin: clear Musculoskeletal: normal range of motion - Labs Result Diagrams: 06/28/19 06:10 06/28/19 06:10 - Telemetry Supraventricular conduction: atrial fibrillation - Assessment/Plan Assessment/Plan: 1. Atrial fibrillation/Atrial flutter. 2. S/P Flutter ablation 3. Metastatic gastric Ca 4. Left colon obstruction, s/p Exp lap with omental implant and colostomy. 5. Anemia 6. Left hydronephrosis 7. Thrombocytopenia PLAN: - Back in afib RVR, will start amiodarone drip. - He is not wanting any ore medications. I asked him if he wished for us to just keep him comfortable and let bnature take its course, he states he will talk with his about this.
[2019-06-28] MEDS: Amiodarone 450 MG in Dextrose 5% in Water 250 ML IVPB SCH (19:21)
[2019-06-29] MEDS: Amiodarone 450 MG in Dextrose 5% in Water 250 ML IVPB SCH ×2 (04:36→19:50)
[2019-06-29] MEDS: Albumin 25% 25 GM/100 ML BOT IVPB SCH ×3 (05:52→22:14)
--- NOTE | 2019-06-29 09:11 | PRG ---
DATE OF SERVICE: 06/29/2019 SUBJECTIVE: Mr. Mendieta is better. He is still weak, but no shortness of breath. OBJECTIVE: VITAL SIGNS: Temperature 97, O2 saturation 95%, blood pressure 160/71, respiratory rate 18. CHEST: Decreased breath sounds. No wheezing. CARDIAC: Normal S1 and S2. No gallops. ABDOMEN: No masses. ASSESSMENT: Abdominal carcinomatosis, atrial flutter, severe deconditioning, respiratory failure. PLAN: Pulmonary maier, continue aggressive PT, supportive care. We will follow while in the MICU. Job ID: [id number]
--- NOTE | 2019-06-29 09:45 | PDOC.HOSPP ---
- Subjective Encounter Date: 06/29/19 Encounter Time: 09:30 Subjective: Patient seen and examined. No new complaints. No overnight events - Objective Vital Signs & Weight: Vital Signs (12 hours) Temp Pulse Resp Pulse Ox 06/29/19 08:00 95 06/29/19 07:20 96.8 F L 06/29/19 07:00 97 06/29/19 06:59 90 18 06/29/19 04:00 98.2 F 06/29/19 03:12 96 06/29/19 00:00 98.0 F 06/28/19 22:37 100 20 94 L Weight Admit Weight 186 lb 4.65 oz Weight 203 lb 1.6 oz Most Recent Monitor Data Heart Rate from ECG 93 NIBP 116/71 NIBP BP-Mean 86 Respiration from ECG 17 SpO2 96 I&O: 06/28/19 06/29/19 06/30/19 06:59 06:59 06:59 Intake Total 1620 1160 Output Total 3365 1400 Balance -1745 -240 Result Diagrams: 06/28/19 06:10 06/28/19 06:10 Hospitalist ROS - Review of Systems Constitutional: reports: weakness, malaise. denies: fever, chills, sweats, other ENT: denies: ear pain, ear discharge, nose pain, nose discharge, nose congestion , mouth pain, mouth swelling, throat pain, throat swelling, other Respiratory: denies: cough, dry, shortness of breath, hemoptysis, SOB with excertion, pleuritic pain, sputum, wheezing, other Cardiovascular: denies: chest pain, palpitations, orthopnea, paroxysmal noc. dyspnea, edema, light headedness, other Gastrointestinal: denies: nausea, vomiting, abdominal pain, diarrhea, constipation, melena, hematochezia, other Genitourinary: denies: dysuria, frequency, incontinence, hematuria, retention, other Musculoskeletal: denies: neck pain, shoulder pain, arm pain, back pain, hand pain, leg pain, foot pain, other - Medication Medications: Active Medications Generic Name Dose Route Start Last Admin Trade Name Freq PRN Reason Stop Dose Admin Acetaminophen 1,000 mg 06/21/19 20:18 06/23/19 09:33 Tylenol PO 1,000 mg Q6H PRN Administration Moderate to Severe Pain (6-10) Albumin Human 25 gm 06/28/19 17:00 06/29/19 05:52 Albumin 25% IVPB 06/29/19 11:01 25 gm 0500,1100,1700,2300 [facility] Administration Albuterol/Ipratropium 3 ml 06/22/19 10:30 06/29/19 06:59 Duoneb NEB 3 ml [id number] [facility] Administration Amiodarone HCl 450 mg/ 259 mls @ 0 mls/hr 06/28/19 17:00 06/29/19 04:36 Dextrose/Water IVPB 259 mls INF [facility] Administration Protocol Per Protocol Metoprolol Succinate 25 mg 06/27/19 09:00 06/28/19 08:13 Toprol Xl PO Not Given DAILY [facility] Miscellaneous Medication 0 ml 06/27/19 16:24 06/27/19 17:15 Biotene Moisturizing Mouth MM 1 applic PRN PRN Administration Dry Mouth Pantoprazole Sodium 40 mg 06/24/19 09:00 06/28/19 08:13 Protonix PO Not Given DAILY [facility] Polyethylene Glycol 17 gm 06/28/19 09:00 06/28/19 08:14 Miralax PO Not Given DAILY [facility] Sodium Chloride 10 ml 06/17/19 01:53 06/28/19 19:27 Flush - Normal Saline IVF 10 ml Q12HR PRN Administration Saline Flush Sodium Chloride 10 ml 06/17/19 01:53 06/29/19 05:52 Flush - Normal Saline IVF 10 ml PRN PRN Administration Saline Flush - Exam General Appearance: NAD, awake alert Eye: PERRL, anicteric sclera ENT: normocephalic atraumatic, no oropharyngeal lesions Neck: supple, symmetric, no JVD Heart: RRR, no murmur, no gallops, no rubs Respiratory: CTAB, no wheezes, no rales, no ronchi Gastrointestinal: soft, non-tender, non-distended, normal bowel sounds Gastrointestinal - other findings: colostomy+ Extremities: no cyanosis, no clubbing Skin: normal turgor, no lesions Neurological: no focal deficits Musculoskeletal: normal tone, normal strength Psychiatric: normal affect, normal behavior Hosp A/P (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 - DISSEMINATED MALIGNANT NEOPLASM, UNSPECIFIED Status: Acute (2) Generalized weakness Code(s): R53.1 - WEAKNESS Status: Acute (3) Physical deconditioning Code(s): R53.81 - OTHER MALAISE Status: Acute (4) Thrombocytopenia Code(s): D69.6 - THROMBOCYTOPENIA, UNSPECIFIED Status: Acute (5) Atrial flutter Code(s): I48.92 - UNSPECIFIED ATRIAL FLUTTER Status: Chronic Qualifiers: Atrial flutter type: unspecified Qualified Code(s): I48.92 - Unspecified atrial flutter (6) Gastric cancer Status: Chronic (7) HTN (hypertension) Code(s): I10 - ESSENTIAL (PRIMARY) HYPERTENSION Status: Chronic Qualifiers: Hypertension type: essential hypertension Qualified Code(s): I10 - Essential (primary) hypertension (8) Macrocytic anemia Code(s): D53.9 - NUTRITIONAL ANEMIA, UNSPECIFIED Status: Chronic - Plan old records reviewed/req 06/27/19 for his low BP, albumin given medication reviewed and continue to provide symptomatic care and supportive care palliative care on case surgery following cardiology following, continue tambocore for now prognosis is poor 06/28/19 continue current treatment continue tambocor for now supportive care 06/29/19 continue albumin medication reviewed, continue to provide symptomatic care and supportive care discharge planning
[2019-06-29 09:49] LABS: Anion Gap 15 mmol/L (10-20); BUN (Urea Nitrogen) 47 mg/dL (8.4-25.7); Calc. Creatinine Clearance 40 mL/min (70-130); Carbon Dioxide 20 mmol/L (23-31); Chloride 98 mmol/L (98-107); Estimated GFR-MDRD 33; Glucose 94 mg/dL (83-110); Potassium 4.3 mmol/L (3.5-5.1); Sodium 129 mmol/L (136-145)
[2019-06-29] MEDS: Polyethylene Glycol 3350 17 GM Packet PO SCH (09:52)
--- NOTE | 2019-06-29 10:42 | PDOC.EP ---
- Subjective Date: 06/29/19 Time: 09:00 Interval History: Went into AF RVR last night. Patient discouraged and refusing oral medications. - Review of Systems Constitutional: reports: weakness. denies: chills, fever, sweats Respiratory: denies: cough, shortness of breath Cardiology: reports: heart racing, light headedness, palpitations. denies: chest pain, edema Gastrointestinal: reports: abdominal pain. denies: constipation - Objective Allergies/Adverse Reactions: Allergies Allergy/AdvReac Type Severity Reaction Status Date / Time No Known Allergies Allergy Verified 05/19/19 02:03 Current Medications Acetaminophen (Tylenol) 1,000 mg PO Q6H PRN PRN Reason: Moderate to Severe Pain (6-10) Last Admin: 06/23/19 09:33 Dose: 1,000 mg Albumin Human (Albumin 25%) 25 gm IVPB 0500,1100,1700,2300 [facility] Stop: 06/29/19 11:01 Last Admin: 06/29/19 05:52 Dose: 25 gm Albuterol/Ipratropium (Duoneb) 3 ml NEB [id number] [facility] Last Admin: 06/29/19 10:38 Dose: 3 ml Amiodarone HCl 450 mg/ (Dextrose/Water) 259 mls @ 0 mls/hr IVPB INF [facility]; Protocol Last Admin: 06/29/19 04:36 Dose: 259 mls Metoprolol Succinate (Toprol Xl) 25 mg PO DAILY [facility] Last Admin: 06/29/19 09:52 Dose: 25 mg Miscellaneous Medication (Biotene Moisturizing Mouth) 0 ml MM PRN PRN PRN Reason: Dry Mouth Last Admin: 06/27/19 17:15 Dose: 1 applic Pantoprazole Sodium (Protonix) 40 mg PO DAILY [facility] Last Admin: 06/29/19 09:52 Dose: 40 mg Polyethylene Glycol (Miralax) 17 gm PO DAILY [facility] Last Admin: 06/29/19 09:52 Dose: 17 gm Sodium Chloride (Flush - Normal Saline) 10 ml IVF Q12HR PRN PRN Reason: Saline Flush Last Admin: 06/28/19 19:27 Dose: 10 ml Sodium Chloride (Flush - Normal Saline) 10 ml IVF PRN PRN PRN Reason: Saline Flush Last Admin: 06/29/19 05:52 Dose: 10 ml Tramadol HCl (Ultram) 50 mg PO Q4H PRN PRN Reason: Mild Pain (1-3) Vital Signs & Weight: Vital Signs Temp Pulse Resp Pulse Ox 06/29/19 10:38 85 19 06/29/19 08:00 95 06/29/19 07:20 96.8 F L 06/29/19 07:00 97 06/29/19 06:59 90 18 06/29/19 04:00 98.2 F 06/29/19 03:12 96 06/29/19 00:00 98.0 F Admit Weight 186 lb 4.65 oz Weight 203 lb 1.6 oz I/O: I/O 06/28/19 06/29/19 06/30/19 06:59 06:59 06:59 Intake Total 1620 1160 Output Total 3365 1400 Balance -3477 -240 - Quality Measures Condition: Atrial Fibrillation/Flutter (hx or current) - Medication Contraindications No Anticoagulant reason: Anticoagulant not tolerated - Physical Exam General: alert & oriented x3, speech clear HEENT: mucus membranes moist, normocephaly. negative: jaundice Neck: supple neck, midline trachea, no thromegaly Cardiology: regular rate and rhythm Lungs: clear to auscultation, no wheeze, rales, rhonchi Neurology: cranial nerve 2-12 intact, grossly intact, no lateralizing findings - Labs Result Diagrams: 06/28/19 06:10 06/29/19 09:22 - EKG Interpretation EKG Method: Telemetry EKG shows: Sinus rhythm - Assessment/Plan Assessment/Plan: 1. Atrial flutter - s/p CTI right atrial flutter ablation. - stopped flecainide. plan to resume if atrial fibrillation is seen - rhythm stable overnight 2. Indication of anticoagulation - cannot take due to prior severe GI bleeding while on eliquis related to gastric neoplasm 3. Gastric neoplasm -per oncology Went into A fib last night after refusing PO meds. Starting on IV Amiodarone and is in SR now. He is considering his options and wishes for treatment moving forward. Not an ablative candidate as he cannot tolerate OAC with ongoing acute anemia. Suppression of AF with amiodarone vs flecainide remains his only rhythm treatment option at this point. EP signing off.
--- NOTE | 2019-06-29 14:48 | PDOC.CPN ---
- Subjective Date: 06/29/19 Time: 14:42 Interval history: He is feeling much better since he has been in afib. - Review of Systems General: reports: fatigue. denies: fever/chills, weight/appetite/sleep changes , night sweats Respiratory: reports: shortness of breath, exercise intolerance. denies: cough , congestion Cardiovascular: reports: edema. denies: chest pain, palpitation, paroxysmal nocturnal dyspnea, orthopnea Gastrointestinal: reports: constipation. denies: nausea, vomiting, diarrhea, abd pain, GI bleeding Musculoskeletal: reports: pain. denies: tenderness, stiffness, swelling, arthritis/arthralgias Neurological: reports: weakness. denies: numbness, syncope, seizure - Objective Allergies/Adverse Reactions: Allergies Allergy/AdvReac Type Severity Reaction Status Date / Time No Known Allergies Allergy Verified 05/19/19 02:03 Visit Medications: Current Medications Acetaminophen (Tylenol) 1,000 mg PO Q6H PRN PRN Reason: Moderate to Severe Pain (6-10) Last Admin: 06/23/19 09:33 Dose: 1,000 mg Albuterol/Ipratropium (Duoneb) 3 ml NEB [id number] [facility] Last Admin: 06/29/19 14:29 Dose: 3 ml Amiodarone HCl 450 mg/ (Dextrose/Water) 259 mls @ 0 mls/hr IVPB INF [facility]; Protocol Last Admin: 06/29/19 04:36 Dose: 259 mls Metoprolol Succinate (Toprol Xl) 25 mg PO DAILY [facility] Last Admin: 06/29/19 09:52 Dose: 25 mg Miscellaneous Medication (Biotene Moisturizing Mouth) 0 ml MM PRN PRN PRN Reason: Dry Mouth Last Admin: 06/27/19 17:15 Dose: 1 applic Pantoprazole Sodium (Protonix) 40 mg PO DAILY [facility] Last Admin: 06/29/19 09:52 Dose: 40 mg Polyethylene Glycol (Miralax) 17 gm PO DAILY [facility] Last Admin: 06/29/19 09:52 Dose: 17 gm Sodium Chloride (Flush - Normal Saline) 10 ml IVF Q12HR PRN PRN Reason: Saline Flush Last Admin: 06/28/19 19:27 Dose: 10 ml Sodium Chloride (Flush - Normal Saline) 10 ml IVF PRN PRN PRN Reason: Saline Flush Last Admin: 06/29/19 05:52 Dose: 10 ml Tramadol HCl (Ultram) 50 mg PO Q4H PRN PRN Reason: Mild Pain (1-3) Vital Signs & Weight: Vital Signs Temp Pulse Resp Pulse Ox 06/29/19 14:29 83 23 H 06/29/19 12:00 97.2 F L 06/29/19 10:38 85 19 06/29/19 08:00 95 06/29/19 07:20 96.8 F L 06/29/19 07:00 97 06/29/19 06:59 90 18 06/29/19 04:00 98.2 F 06/29/19 03:12 96 Admit Weight 186 lb 4.65 oz Weight 203 lb 1.6 oz - Medication Contraindications No Anticoagulant reason: Anticoagulant not tolerated - Physical Exam General: alert & oriented x3 HEENT: mucus membranes moist Neck: supple neck Cardiac: regular rate and rhythm Lungs: normal breath sounds Neuro: grossly intact Abdomen: active bowel sounds Extremities: 1+ LE edema Skin: clear Musculoskeletal: no pain - Labs Result Diagrams: 06/28/19 06:10 06/29/19 09:22 - Telemetry Sinus rhythms and dysrhythmias: sinus rhythm - Assessment/Plan Assessment/Plan: 1. Atrial fibrillation/Atrial flutter. 2. S/P Flutter ablation 3. Metastatic gastric Ca 4. Left colon obstruction, s/p Exp lap with omental implant and colostomy. 5. Anemia 6. Left hydronephrosis 7. Thrombocytopenia PLAN: - Continue amiodarone drip. Will load with 400 mg BID starting tomorrow. - He is more optimistic today as he feels better. He tells me his children are here this weekend and he will talk to them to see how to move forward. - Will follow.
--- NOTE | 2019-06-29 16:32 | PRG ---
DATE OF SERVICE: 06/29/2019 Mr. Mendieta is doing well today. He had atrial fibrillation with RVR last night that is resolved. He feels better today. He has not been out of bed any. I had a long discussion with Palliative Care present about the next step and that involves him being more active. His options are to go home with hospice, essentially bed-bound because of lack of energy or going to rehab. However, the question is how much rehabable potential does he have, so the next few days, we need to push to Physical Therapy to see just that. Ultimately, the decision would be his, if he just wants to go home with the hospice arranged soon. Job ID: [id number]
[2019-06-29] MEDS: Amiodarone 200 MG TAB PO SCH (20:50)
--- NOTE | 2019-06-29 22:38 | PRG ---
DATE OF SERVICE: 06/29/2019 SERVICE: Nephrology. SUBJECTIVE: A 79-year-old male with metastatic gastric cancer associated with intestinal obstruction, status post exploratory laparotomy and resection of omental mass as well as colostomy. Nephrology is following the patient for acute kidney injury. The patient continued to be in negative fluid balance. Oral intake remained very poor with increased output from the ostomy as well as periostomy drainage of peritoneal fluid. No fever or vomiting. Paroxysmal atrial fibrillation with RVR last night, back in sinus. OBJECTIVE: VITAL SIGNS: Temperature 96.8, pulse 93, respiratory rate 22, SpO2 of 95, blood pressure is 120/75. GENERAL: Chronically ill-looking elderly male, in no obvious distress. Fatigued, but afebrile. HEENT: Normocephalic, atraumatic. CARDIOVASCULAR: Regular rhythm with frequent ectopics. RESPIRATORY: Fair air entry bilaterally with transmitted breath sounds. Air entry decreased at both bases posteriorly. GI: Full, left upper quadrant colostomy with serosanguinous fluid in the bag. Midline surgical incision noted. UROGENITAL: Scrotal swelling and Hammer catheter noted. EXTREMITIES: [id number] bilateral leg edema noted. [employer]: Conscious, alert, oriented x3 with appropriate mental status. DIAGNOSTIC DATA: BMP showed sodium 129, potassium 4.3, chloride 98, CO2 of 20, BUN 47, creatinine 1.98, glucose 94, and calcium 8.0. ASSESSMENT: 1. Acute kidney injury: Due to hemodynamic factors related to volume depletion from poor oral intake and increased GI losses leading to volume contraction. The patient has been negative in fluid balance in the last few days. Creatinine is still trending up progressively after getting to a rhina of 1.42. 2. Hyponatremia: Due to volume contraction with appropriate ADH secretion. 3. Metabolic acidosis. 4. Marked bilateral leg edema: Due to venous insufficiency related to metastatic cancer as well as hypoalbuminemia. 5. Volume depletion: The patient is intravascularly contracted despite bilateral leg edema. BUN continued to trend up as well as creatinine. 6. Jgxyr-[id number] anemia. 7. Cachexia of malignancy. 8. Protein-calorie malnutrition. PLAN: We will continue albumin therapy as the patient is not a candidate for crystalloid as this will immediately infiltrate and cause further worsening of edema. [place] oral intake advised. Again, prognosis overall remains poor, given that the patient has metastatic gastric cancer and oral intake is abysmal. The patient is considering hospice option. In the intervening time, we will continue supportive care. We will get repeat renal function tests as well as CBC in the morning. I had a discussion about prognosis today with this patient and he will discuss further with . Job ID: [id number]
[2019-06-30] MEDS: Albumin 25% 25 GM/100 ML BOT IVPB SCH (04:16)
[2019-06-30 04:59] LABS: Hemoglobin 7.3 g/dL (14.0-18.0); Mean Corpuscular HGB CONC 31.8 g/dL (32.0-36.0); Mean Corpuscular Hemoglobin 33.4 pg (27.0-31.0); Mean Platelet Volume 8.6 fL (7.4-10.4); Platelet Count 118 thou/uL (130-400); RBC Distribution Width 14.2 % (11.5-14.5); Red Blood Cell (RBC) Count 2.18 mill/uL (4.70-6.10); White Blood Cell (WBC) Count 17.5 thou/uL (4.8-10.8)
[2019-06-30 05:02] LABS: Albumin 3.1 g/dL (3.4-4.8); Anion Gap 14 mmol/L (10-20); BUN (Urea Nitrogen) 50 mg/dL (8.4-25.7); BUN/Creatinine Ratio 27.17; Calc. Creatinine Clearance 43 mL/min (70-130); Carbon Dioxide 22 mmol/L (23-31); Chloride 97 mmol/L (98-107); Estimated GFR-MDRD 36; Glucose 85 mg/dL (83-110); Phosphorus 3.6 mg/dL (2.3-4.7); Potassium 3.9 mmol/L (3.5-5.1); Sodium 129 mmol/L (136-145)
[2019-06-30] MEDS: Amiodarone 200 MG TAB PO SCH ×2 (11:04→20:51)
[2019-06-30] MEDS: Polyethylene Glycol 3350 17 GM Packet PO SCH (11:05)
--- NOTE | 2019-06-30 11:40 | PDOC.CPN ---
- Subjective Date: 06/30/19 Time: 11:00 - Review of Systems General: reports: fatigue Respiratory: reports: cough, shortness of breath Cardiovascular: reports: chest pain, palpitation, edema Gastrointestinal: reports: abd pain Musculoskeletal: reports: swelling (Pt. wants to eat scrabbled eggs) - Objective Allergies/Adverse Reactions: Allergies Allergy/AdvReac Type Severity Reaction Status Date / Time No Known Allergies Allergy Verified 05/19/19 02:03 Visit Medications: Current Medications Acetaminophen (Tylenol) 1,000 mg PO Q6H PRN PRN Reason: Moderate to Severe Pain (6-10) Last Admin: 06/23/19 09:33 Dose: 1,000 mg Albuterol/Ipratropium (Duoneb) 3 ml NEB [id number] [facility] Last Admin: 06/30/19 11:22 Dose: 3 ml Amiodarone HCl (Cordarone) 200 mg PO BID [facility] Last Admin: 06/30/19 11:04 Dose: 200 mg Amiodarone HCl 450 mg/ (Dextrose/Water) 259 mls @ 0 mls/hr IVPB INF [facility]; Protocol Stop: 06/30/19 12:00 Last Admin: 06/29/19 19:50 Dose: 259 mls Metoprolol Succinate (Toprol Xl) 25 mg PO DAILY [facility] Last Admin: 06/30/19 11:04 Dose: 25 mg Miscellaneous Medication (Biotene Moisturizing Mouth) 0 ml MM PRN PRN PRN Reason: Dry Mouth Last Admin: 06/27/19 17:15 Dose: 1 applic Pantoprazole Sodium (Protonix) 40 mg PO DAILY [facility] Last Admin: 06/30/19 11:05 Dose: 40 mg Polyethylene Glycol (Miralax) 17 gm PO DAILY [facility] Last Admin: 06/30/19 11:05 Dose: Not Given Sodium Chloride (Flush - Normal Saline) 10 ml IVF Q12HR PRN PRN Reason: Saline Flush Last Admin: 06/28/19 19:27 Dose: 10 ml Sodium Chloride (Flush - Normal Saline) 10 ml IVF PRN PRN PRN Reason: Saline Flush Last Admin: 06/29/19 05:52 Dose: 10 ml Tramadol HCl (Ultram) 50 mg PO Q4H PRN PRN Reason: Mild Pain (1-3) Vital Signs & Weight: Vital Signs Temp Pulse Resp Pulse Ox 06/30/19 11:32 97.8 F 06/30/19 11:22 92 19 98 06/30/19 08:31 97 06/30/19 08:30 85 23 H 06/30/19 07:31 97 06/30/19 04:10 97.9 F 06/30/19 03:17 98 Admit Weight 186 lb 4.65 oz Weight 199 lb 9.6 oz - Medication Contraindications No Anticoagulant reason: Anticoagulant not tolerated - Physical Exam General: alert & oriented x3 HEENT: normocephaly Neck: no lymphadenopathy Cardiac: regular rate and rhythm Lungs: clear to auscultation Neuro: grossly intact, weakness Abdomen: decreased bowel sounds, other (tympanic.colostomy bag with material.) Extremities: other: (ankle edema) Musculoskeletal: no pain - Labs Result Diagrams: 06/30/19 04:20 06/30/19 04:20 - Telemetry Sinus rhythms and dysrhythmias: sinus rhythm - Assessment/Plan Assessment/Plan: 1. Atrial fibrillation/Atrial flutter.maintaining NSR after amiodarone. started on po amio. IV d/c'd. 2. S/P Flutter ablation 3. Metastatic gastric Ca 4. Left colon obstruction, s/p Exp lap with omental implant and colostomy. 5. Anemia, depending on decision of code status and further treatment plan/ prognosis, if the hgb. is < 7.0 consider transfusion. 6. Left hydronephrosis 7. Thrombocytopenia PLAN: - Continue amiodarone .
--- NOTE | 2019-06-30 12:17 | PRG ---
DATE OF SERVICE: 06/30/2019 SERVICE: Nephrology. SUBJECTIVE: A 79-year-old male with metastatic gastric cancer, seen in followup for acute kidney injury. Oral intake remained poor. The patient also has generalized weakness. He is contemplating about hospice care. Denied nausea, vomiting, fever, or abdominal pain. OBJECTIVE: VITAL SIGNS: Temperature 97.8, pulse 92, respiratory rate 19, SpO2 of 98 on room air, blood pressure is 105/75. GENERAL: Chronically ill-looking, elderly male, in no distress. Afebrile, anicteric, acyanotic. HEENT: Normocephalic and atraumatic. Oral mucosa is moist. CARDIOVASCULAR: Regular rhythm and rate with normal heart sounds 1 and 2. RESPIRATORY: Fair air entry bilateral, decreased at both bases posteriorly. Work of breathing is not increased. GI: Obese, soft, with no tenderness. Left upper quadrant colostomy with some stool in the colostomy bag noted. Median surgical incision noted. EXTREMITIES: Moderate bilateral leg edema noted. NETWORK DEVELOPMENT COORDINATOR: Conscious and alert and oriented x3 with appropriate mental status. Cranial nerves 2 through 12 are grossly intact. DIAGNOSTIC DATA: CBC showed WBC count of 17.5, hemoglobin of 7.3, platelets of 118. Renal function panel showed sodium of 129, potassium 3.9, chloride 97, CO2 of 22, BUN 50, creatinine 1.84, glucose 85, calcium 8.0, phosphorus 3.6, albumin 3.1. ASSESSMENT: 1. Acute kidney injury: Due to prerenal etiology, related to volume depletion and intravascular contraction. The patient's oral intake is very very poor. He also had increased output from colostomy as well as pericolostomy from leakage of peritoneal fluid. The patient has been negative in the last few days. He also has bilateral leg edema due to extravasation. Despite volume resuscitation and intravascular expansion with colloid as well as crystalloid, the patient is still in negative balance. 2. Chronic kidney disease, stage 3/4. 3. Hyponatremia: Due to volume contraction with appropriate ADH secretion. 4. Hypoalbuminemia. 5. Moderate to severe protein-calorie malnutrition. Cachexia of malignancy. 6. Metastatic gastric cancer. 7. Chronic bilateral leg edema. 8. Paroxysmal atrial fibrillation. 9. Acute on chronic anemia from gastrointestinal bleeding. PLAN: The patient was advised to increase oral intake as much as possible. Treatment with IV fluids is not sustainable as once we discontinue, his creatinine will trend up. The patient at this time is contemplating comfort care as well as hospice care. He is waiting for his spouse to come in, so that they could have further discussion. We will defer further aggressive measures at this time, vis-a-vis IV fluid therapy and albumin therapy since this is not providing any sustained improvement, given that the major problem here is metastatic cancer, which is not amenable to treatment. We will monitor see what decision the patient makes. Palliative Care also is following the patient. Call for any clarification or question. Job ID: [id number]
--- NOTE | 2019-06-30 12:34 | PDOC.HOSPP ---
- Subjective Encounter Date: 06/30/19 Encounter Time: 10:30 Subjective: Patient seen and examined. No new complaints. No overnight events - Objective Vital Signs & Weight: Vital Signs (12 hours) Temp Pulse Resp Pulse Ox 06/30/19 11:32 97.8 F 06/30/19 11:22 92 19 98 06/30/19 08:31 97 06/30/19 08:30 85 23 H 06/30/19 07:31 97 06/30/19 04:10 97.9 F 06/30/19 03:17 98 Weight Admit Weight 186 lb 4.65 oz Weight 199 lb 9.6 oz Most Recent Monitor Data Heart Rate from ECG 88 NIBP 105/75 NIBP BP-Mean 85 Respiration from ECG 23 SpO2 99 I&O: 06/29/19 06/30/19 07/01/19 06:59 06:59 06:59 Intake Total 1160 1486 Output Total 1400 3300 Balance -240 -1814 Result Diagrams: 06/30/19 04:20 06/30/19 04:20 Radiology Reviewed by me: Yes EKG Reviewed by me: Yes Hospitalist ROS - Review of Systems ENT: denies: ear pain, ear discharge, nose pain, nose discharge, nose congestion , mouth pain, mouth swelling, throat pain, throat swelling, other Respiratory: denies: cough, dry, shortness of breath, hemoptysis, SOB with excertion, pleuritic pain, sputum, wheezing, other Cardiovascular: denies: chest pain, palpitations, orthopnea, paroxysmal noc. dyspnea, edema, light headedness, other Gastrointestinal: denies: nausea, vomiting, abdominal pain, diarrhea, constipation, melena, hematochezia, other - Medication Medications: Active Medications Generic Name Dose Route Start Last Admin Trade Name Freq PRN Reason Stop Dose Admin Acetaminophen 1,000 mg 06/21/19 20:18 06/23/19 09:33 Tylenol PO 1,000 mg Q6H PRN Administration Moderate to Severe Pain (6-10) Albuterol/Ipratropium 3 ml 06/22/19 10:30 06/30/19 11:22 Duoneb NEB 3 ml [id number] LINDA Administration Amiodarone HCl 200 mg 06/29/19 21:00 06/30/19 11:04 Cordarone PO 200 mg BID LINDA Administration Metoprolol Succinate 25 mg 06/27/19 09:00 06/30/19 11:04 Toprol Xl PO 25 mg DAILY LINDA Administration Miscellaneous Medication 0 ml 06/27/19 16:24 06/27/19 17:15 Biotene Moisturizing Mouth MM 1 applic PRN PRN Administration Dry Mouth Pantoprazole Sodium 40 mg 06/24/19 09:00 06/30/19 11:05 Protonix PO 40 mg DAILY LINDA Administration Polyethylene Glycol 17 gm 06/28/19 09:00 06/30/19 11:05 Miralax PO Not Given DAILY LINDA Sodium Chloride 10 ml 06/17/19 01:53 06/28/19 19:27 Flush - Normal Saline IVF 10 ml Q12HR PRN Administration Saline Flush Sodium Chloride 10 ml 06/17/19 01:53 06/29/19 05:52 Flush - Normal Saline IVF 10 ml PRN PRN Administration Saline Flush - Exam General Appearance: NAD, awake alert Eye: PERRL, anicteric sclera ENT: normocephalic atraumatic, no oropharyngeal lesions Neck: supple, symmetric, no JVD Heart: no murmur, no gallops, irregular Respiratory: CTAB, no wheezes, no rales Gastrointestinal: soft, non-tender Gastrointestinal - other findings: colostomy+ Extremities: no clubbing Skin: normal turgor, no lesions Neurological: no focal deficits Musculoskeletal: normal tone, normal strength Psychiatric: normal affect, normal behavior Hosp A/P (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 - DISSEMINATED MALIGNANT NEOPLASM, UNSPECIFIED Status: Acute (2) Generalized weakness Code(s): R53.1 - WEAKNESS Status: Acute (3) Physical deconditioning Code(s): R53.81 - OTHER MALAISE Status: Acute (4) Thrombocytopenia Code(s): D69.6 - THROMBOCYTOPENIA, UNSPECIFIED Status: Acute (5) Atrial flutter Code(s): I48.92 - UNSPECIFIED ATRIAL FLUTTER Status: Chronic Qualifiers: Atrial flutter type: unspecified Qualified Code(s): I48.92 - Unspecified atrial flutter (6) Gastric cancer Status: Chronic (7) HTN (hypertension) Code(s): I10 - ESSENTIAL (PRIMARY) HYPERTENSION Status: Chronic Qualifiers: Hypertension type: essential hypertension Qualified Code(s): I10 - Essential (primary) hypertension (8) Macrocytic anemia Code(s): D53.9 - NUTRITIONAL ANEMIA, UNSPECIFIED Status: Chronic - Plan old records reviewed/req, plan discussed w/ family, criminal justice social worker 06/27/19 for his low BP, albumin given medication reviewed and continue to provide symptomatic care and supportive care palliative care on case surgery following cardiology following, continue tambocore for now prognosis is poor 06/28/19 continue current treatment continue tambocor for now supportive care 06/29/19 continue albumin medication reviewed, continue to provide symptomatic care and supportive care discharge planning 06/30/19 I have discussed with pt about goal of care and his prognosis at this time main concern is his risk of readmission and his tolerance without ongoing medication support today advance diet and see how he dose
--- NOTE | 2019-06-30 15:45 | PRG ---
DATE OF SERVICE: 06/30/2019 SUBJECTIVE: Charlie Mendieta was evaluated today. He is actually an interesting gentleman. 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 He actually had one of his students come up to him recently and tell him that both his father and his grandfather told him, sang. He had talked both the grandfather and the father. OBJECTIVE: VITAL SIGNS: His heart rate is in the 90s, blood pressure 120/80, and respiratory rates in the 20s. GENERAL: He appears comfortable. LUNGS: Remarkable for coarse equal breath sounds. HEART: Regular rhythm. ABDOMEN: Soft. LABORATORY DATA: White count 17.5, hemoglobin 7.3, and platelets 118. Sodium 129, potassium 3.9, chloride 97, bicarb 22, BUN 50, and creatinine 1.84. IMPRESSION: 1. Abdominal carcinomatosis. 2. Atrial flutter. 3. Deconditioning. 4. Respiratory muscle insufficiency. PLAN: Overall, he appears to be stable and in reasonable spirits at this time. Job ID: [id number]
[2019-07-01] MEDS: Morphine 2 MG/ML SYRINGE SLOW IVP PRN ×2 (01:38→21:44)
[2019-07-01 08:05] LABS: Hemoglobin 8.3 g/dL (14.0-18.0); Mean Corpuscular HGB CONC 31.7 g/dL (32.0-36.0); Mean Corpuscular Hemoglobin 33.9 pg (27.0-31.0); Mean Platelet Volume 8.1 fL (7.4-10.4); Platelet Count 160 thou/uL (130-400); Red Blood Cell (RBC) Count 2.44 mill/uL (4.70-6.10); White Blood Cell (WBC) Count 22.2 thou/uL (4.8-10.8)
[2019-07-01 08:14] LABS: Albumin 2.9 g/dL (3.4-4.8); Anion Gap 14 mmol/L (10-20); BUN (Urea Nitrogen) 48 mg/dL (8.4-25.7); BUN/Creatinine Ratio 28.92; Calc. Creatinine Clearance 46 mL/min (70-130); Carbon Dioxide 21 mmol/L (23-31); Chloride 97 mmol/L (98-107); Estimated GFR-MDRD 40; Glucose 78 mg/dL (83-110); Phosphorus 3.4 mg/dL (2.3-4.7); Potassium 4.1 mmol/L (3.5-5.1); Sodium 128 mmol/L (136-145)
[2019-07-01] MEDS: Amiodarone 200 MG TAB PO SCH ×2 (08:57→21:44)
[2019-07-01] MEDS: Polyethylene Glycol 3350 17 GM Packet PO SCH (08:58)
--- NOTE | 2019-07-01 11:56 | PRG ---
DATE OF SERVICE: 07/01/2019 SERVICE: Nephrology. SUBJECTIVE: A 79-year-old male with metastatic gastric cancer, seen in followup for acute kidney injury. The patient reports feeling better today. Denied nausea or vomiting. Oral intake is improving, but remains suboptimal. No fever, nausea, vomiting, or chest pain. OBJECTIVE: VITAL SIGNS: Temperature 97.6, pulse 101, respiratory rate 21, SpO2 of 95% on room air, and blood pressure is 98/67. GENERAL: Chronically ill-looking elderly male, in no distress. Afebrile. Anicteric. Acyanotic. HEENT: Normocephalic, atraumatic. CARDIOVASCULAR: Regular rhythm and rate, but tachycardic. Normal heart sounds 1 and 2. RESPIRATORY: Fair air entry bilateral. Decreased at both bases, but no obvious crackle or rhonchi or use of accessory muscles. GASTROINTESTINAL: Enlarged. Nontender with hypoactive bowel sounds. Left upper quadrant colostomy noted. UROGENITAL: Hammer catheter is in place, draining some urine. EXTREMITIES: [id number] bilateral leg edema noted. CENTRAL NERVOUS SYSTEM: Conscious and alert, oriented x3 with appropriate mental status. Cranial nerves II through XII are grossly intact. DIAGNOSTIC DATA: CBC showed WBC count of 22, hemoglobin of 8.3, and platelets of 160. Renal function panel showed sodium 128, potassium 4.1, chloride 97, CO2 of 21, BUN 48, creatinine 1.61, glucose 78, calcium 8.0, phosphorus 3.4, and albumin 2.8. ASSESSMENT: 1. Acute kidney injury: Recurrent. Due to prerenal etiology related to volume depletion as well as hypotension. Renal function has improved with creatinine trending down to a rhina of 1.4 before trending up. Oral intake has improved, but remains suboptimal with improvement in BUN and creatinine. Creatinine today is 1.66, down from 1.84 yesterday. 2. Hyponatremia: Due to volume contraction with appropriate antidiuretic hormone secretion as well as poor solute intake. 3. Acute on chronic anemia. 4. Chronic debility. 5. Protein-calorie malnutrition. 6. Metastatic gastric cancer with peritoneal carcinomatosis. 7. Bilateral leg edema. 8. Hypoalbuminemia. PLAN: Continue oral intake as tolerated. [place] oral intake advised. Supportive care to continue. Nephrology will sign off at this time as there is no further intervention plan. More so, the patient is contemplating comfort through hospice care. Job ID: [id number]
--- NOTE | 2019-07-01 12:54 | PDOC.HOSPP ---
- Subjective Encounter Date: 07/01/19 Encounter Time: 10:15 Subjective: Patient seen and examined. No new complaints. No overnight events - Objective Vital Signs & Weight: Vital Signs (12 hours) Temp Pulse Resp Pulse Ox 07/01/19 11:49 106 H 21 H 07/01/19 11:09 97.6 F 07/01/19 08:03 101 H 22 H 07/01/19 07:41 97.9 F 07/01/19 07:39 98 07/01/19 04:00 97.8 F 07/01/19 01:23 97 16 97 Weight Admit Weight 186 lb 4.65 oz Weight 194 lb 11.2 oz Most Recent Monitor Data Heart Rate from ECG 95 NIBP 110/74 NIBP BP-Mean 86 Respiration from ECG 22 SpO2 100 I&O: 06/30/19 07/01/19 07/02/19 06:59 06:59 06:59 Intake Total 1486 1000 Output Total 3300 2450 Balance -1814 -1450 Result Diagrams: 07/01/19 07:49 07/01/19 07:49 Hospitalist ROS - Review of Systems Constitutional: reports: weakness, malaise. denies: fever, chills, sweats, other ENT: denies: ear pain, ear discharge, nose pain, nose discharge, nose congestion , mouth pain, mouth swelling, throat pain, throat swelling, other Respiratory: denies: cough, dry, shortness of breath, hemoptysis, SOB with excertion, pleuritic pain, sputum, wheezing, other Cardiovascular: denies: chest pain, palpitations, orthopnea, paroxysmal noc. dyspnea, edema, light headedness, other Gastrointestinal: reports: abdominal pain. denies: nausea, vomiting, diarrhea, constipation, melena, hematochezia, other Genitourinary: denies: dysuria, frequency, incontinence, hematuria, retention, other - Medication Medications: Active Medications Generic Name Dose Route Start Last Admin Trade Name Freq PRN Reason Stop Dose Admin Acetaminophen 1,000 mg 06/21/19 20:18 06/23/19 09:33 Tylenol PO 1,000 mg Q6H PRN Administration Moderate to Severe Pain (6-10) Albuterol/Ipratropium 3 ml 06/22/19 10:30 07/01/19 11:49 Duoneb NEB 3 ml [id number] LINDA Administration Amiodarone HCl 200 mg 06/29/19 21:00 07/01/19 08:57 Cordarone PO 200 mg BID LINDA Administration Metoprolol Succinate 25 mg 06/27/19 09:00 07/01/19 08:57 Toprol Xl PO 25 mg DAILY LINDA Administration Miscellaneous Medication 0 ml 06/27/19 16:24 06/27/19 17:15 Biotene Moisturizing Mouth MM 1 applic PRN PRN Administration Dry Mouth Morphine Sulfate 2 mg 07/01/19 01:30 07/01/19 01:38 Morphine SLOW IVP 2 mg Q4H PRN Administration Breakthrough Pain Pantoprazole Sodium 40 mg 06/24/19 09:00 07/01/19 08:57 Protonix PO 40 mg DAILY LINDA Administration Polyethylene Glycol 17 gm 06/28/19 09:00 07/01/19 08:58 Miralax PO Not Given DAILY LINDA Sodium Chloride 10 ml 06/17/19 01:53 06/28/19 19:27 Flush - Normal Saline IVF 10 ml Q12HR PRN Administration Saline Flush Sodium Chloride 10 ml 06/17/19 01:53 06/29/19 05:52 Flush - Normal Saline IVF 10 ml PRN PRN Administration Saline Flush - Exam General Appearance: NAD, awake alert Eye: PERRL, anicteric sclera ENT: normocephalic atraumatic, no oropharyngeal lesions Neck: supple, symmetric, no JVD Heart: no murmur, no gallops, irregular Respiratory: CTAB, no wheezes, no rales, no ronchi Gastrointestinal: soft Gastrointestinal - other findings: colostomy+, ascites+ Extremities: no cyanosis, no edema Skin: normal turgor, no lesions Neurological: no focal deficits Musculoskeletal: normal tone, normal strength Psychiatric: normal affect, normal behavior Hosp A/P (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 - DISSEMINATED MALIGNANT NEOPLASM, UNSPECIFIED Status: Acute (2) Generalized weakness Code(s): R53.1 - WEAKNESS Status: Acute (3) Physical deconditioning Code(s): R53.81 - OTHER MALAISE Status: Acute (4) Thrombocytopenia Code(s): D69.6 - THROMBOCYTOPENIA, UNSPECIFIED Status: Acute (5) Atrial flutter Code(s): I48.92 - UNSPECIFIED ATRIAL FLUTTER Status: Chronic Qualifiers: Atrial flutter type: unspecified Qualified Code(s): I48.92 - Unspecified atrial flutter (6) Gastric cancer Status: Chronic (7) HTN (hypertension) Code(s): I10 - ESSENTIAL (PRIMARY) HYPERTENSION Status: Chronic Qualifiers: Hypertension type: essential hypertension Qualified Code(s): I10 - Essential (primary) hypertension (8) Macrocytic anemia Code(s): D53.9 - NUTRITIONAL ANEMIA, UNSPECIFIED Status: Chronic - Plan old records reviewed/req 06/27/19 for his low BP, albumin given medication reviewed and continue to provide symptomatic care and supportive care palliative care on case surgery following cardiology following, continue tambocore for now prognosis is poor 06/28/19 continue current treatment continue tambocor for now supportive care 06/29/19 continue albumin medication reviewed, continue to provide symptomatic care and supportive care discharge planning 06/30/19 I have discussed with pt about goal of care and his prognosis at this time main concern is his risk of readmission and his tolerance without ongoing medication support today advance diet and see how he dose 07/01/19 continue supportive care palliative care following and dispo with hospice when finalized prognosis is very poor
--- NOTE | 2019-07-01 13:49 | PRG ---
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 He says he almost fainted when I tried to sit him up yesterday, so he is not interested in getting out of bed. His son was here and I offered to get him a wheelchair, so he could go sit outside, but he is not interested in that. Hospice is apparently coming to the house tomorrow. OBJECTIVE: VITAL SIGNS: He is afebrile, heart rate 106, respiratory rate 21, blood pressure 110/74. LUNGS: Unchanged. HEART: Unchanged. ABDOMEN: Unchanged. LABORATORY DATA: White count 22, hemoglobin 8.3, platelets 160. Sodium 128, potassium 4.1, chloride 97, bicarb 29, BUN 48. Creatinine 1.66 which is down from 1.98 two days ago. IMPRESSION: 1. Abdominal carcinomatosis. 2. Chronic kidney disease. PLAN: Continue supportive care and then home with hospice once everything is set up. Job ID: [id number]
[2019-07-01 15:22] VITALS: BP 99/70
[2019-07-02 05:46] LABS: Hemoglobin 8.1 g/dL (14.0-18.0); Mean Corpuscular HGB CONC 30.8 g/dL (32.0-36.0); Mean Corpuscular Hemoglobin 32.5 pg (27.0-31.0); Mean Platelet Volume 8.1 fL (7.4-10.4); Platelet Count 197 thou/uL (130-400); RBC Distribution Width 14.2 % (11.5-14.5); Red Blood Cell (RBC) Count 2.49 mill/uL (4.70-6.10); White Blood Cell (WBC) Count 32.6 thou/uL (4.8-10.8)
[2019-07-02 05:56] LABS: Albumin 2.8 g/dL (3.4-4.8); Anion Gap 16 mmol/L (10-20); BUN (Urea Nitrogen) 54 mg/dL (8.4-25.7); BUN/Creatinine Ratio 30.51; Calc. Creatinine Clearance 42 mL/min (70-130); Carbon Dioxide 21 mmol/L (23-31); Chloride 96 mmol/L (98-107); Estimated GFR-MDRD 37; Glucose 83 mg/dL (83-110); Phosphorus 3.8 mg/dL (2.3-4.7); Potassium 4.5 mmol/L (3.5-5.1); Sodium 128 mmol/L (136-145)
--- NOTE | 2019-07-02 09:30 | PRG ---
DATE OF SERVICE: 07/02/2019 SUBJECTIVE: Charlie Mendieta is a 79-year-old gentleman. OBJECTIVE: VITAL SIGNS: Pulse 97, temperature 99,6 o2 sat 94% room air, and blood pressure 91/59. GENERAL: He is awake, responsive, and weak. CHEST: Bilateral rhonchi. CARDIAC: Normal S1 and S2. No gallops. ABDOMEN: Soft. LABORATORY DATA: White count 32,00, and platelet count 197. Creatinine 1.7 and sodium 128. ASSESSMENT AND PLAN: Abdominal carcinomatosis, leukocytosis, respiratory failure, and severe deconditioning. He is to go home with hospice care, comfort care. We will follow while he is in the hospital. Job ID: [id number] MTDD
--- NOTE | 2019-07-02 09:30 | PRG ---
DATE OF SERVICE: 07/02/2019 SUBJECTIVE: Mr. Mendieta feels weak and fatigued. His mouth is very dry. There are arrangements being made to try to go home with hospice. OBJECTIVE: VITAL SIGNS: His blood pressure is 95/70, pulse 96, it is sinus on the monitor. LUNGS: Clear. CARDIAC: Normal S1, normal S2. ABDOMEN: Soft and nontender. ASSESSMENT: 1. Paroxysmal atrial fibrillation, now in sinus rhythm. 2. Gastric cancer. 3. Anemia, probably iron deficient. The patient wishes comfort care. PLAN: 1. We will check an iron level and ferritin level. If it is low, we will give him a dose of intravenous iron. 2. Arrangements are being made for home hospice. Job ID: [id number]
[2019-07-02] MEDS: Amiodarone 200 MG TAB PO SCH (09:44)
[2019-07-02] MEDS: Polyethylene Glycol 3350 17 GM Packet PO SCH (09:44)
[2019-07-02 11:43] VITALS: TEMP 97.4
[2019-07-02 12:20] VITALS: BMI 23.4
--- NOTE | 2019-07-02 13:25 | DIS ---
DATE OF ADMISSION: 06/17/2019 DATE OF DISCHARGE: 07/02/2019 PRIMARY CARE PHYSICIAN: [facility] Call admission. DISCHARGE DISPOSITION: Home with home hospice. PRIMARY DISCHARGE DIAGNOSES: 1. Pneumonia, treated in the hospital. 2. Small bowel obstruction due to carcinomatosis. 3. Metastatic gastric cancer. 4. Acute on chronic kidney failure. 5. Hyponatremia. 6. Acute on chronic anemia. 7. Severe protein-calorie malnutrition. 8. Chronic debility. 9. Paroxysmal atrial fibrillation with rapid ventricular response. SECONDARY DISCHARGE DIAGNOSES: Metastatic gastric cancer, physical deconditioning, and paroxysmal atrial fibrillation. PRIMARY PROCEDURE/OPERATION: Ablation was performed by Dr. Reyes. Exploratory laparotomy and resection of large omental implant were performed by Dr. Ryan. RADIOLOGICAL INVESTIGATION: Abdominal x-ray/abdomen and pelvis CT scan showed worsening bibasilar lung changes suggestive of pneumonia, moderate ascites, moderate right-sided colonic distention, left-sided hydronephrosis, and ascites. SIGNIFICANT LABORATORY DATA: WBC 32.6, hemoglobin 8.1, and platelet 197. Sodium 128, creatinine 1.77, calcium 8.0, and phosphorus 3.8. Albumin 2.8. Ferritin 575. Urinalysis is suggestive of UTI. Urine culture was negative. Respiratory culture was negative. DISCHARGE MEDICATIONS: 1. Multivitamin one tablet daily. 2. Tylenol 1 g q.6 hourly p.r.n. 3. Amiodarone 200 mg twice daily. 4. Toprol-XL 25 mg daily. 5. Protonix 40 mg daily. CONTRAINDICATION: The patient is not a candidate for chronic anticoagulation due to gastric ulcer. CODE STATUS: Chemical code only. DISCHARGE PLAN: Posthospital, the patient is discharged to home with home hospice. Subsequently, the patient will follow up with Oncology, primary care physician, and General Surgery as instructed. HOSPITAL COURSE: This is a 79-year-old male, who was admitted by Dr. Baldwin. Please see her H and P for further detail. On admission, the patient had abdomen and pelvis CT scan, which showed colonic distention, hydronephrosis, and bibasilar consolidation. The patient was treated with antibiotic therapy and the patient has finished complete course of therapy while in hospital. While in hospital, his hospital course was complicated with abdominal distention and he was found with abdominal obstruction from carcinomatosis, required exploratory laparotomy and omental implant was removed. Subsequently, the patient had prolonged postoperative ileus and the patient's condition was also deteriorated and he had code green because of AFib with RVR with hypotension, required transfer to ICU. Electrophysiology was consulted and they did ablation procedure, but that was unsuccessful, and subsequently, the patient was started on flecainide. The patient was not tolerating flecainide and that is why subsequently amiodarone was initiated, and with that, the patient converted to sinus rhythm. He was not a candidate for chronic anticoagulation therapy. The patient was also found with hydronephrosis and that is why Urology was following. The patient's long-term prognosis was very poor. Oncology was also following and they recommended to continue to provide palliative care, and with all sustainability consultant's recommendation, the patient was evaluated by Palliative Care, and subsequently, the patient agreed to go to home with home hospice. The patient's prognosis is extremely poor. He has significant physical debility as well as malnutrition from his chronic illness. Nephrology and Pulmonology were also following while in hospital. This patient is at high risk for recurrent admission. I have seen and examined the patient at bedside today. PHYSICAL EXAMINATION: VITAL SIGNS: Currently, temperature 97.4, pulse 97 and regular, blood pressure 102/70, and weight 192 pounds. GENERAL: The patient is currently alert, awake, chronically ill looking. HEENT: Head, normocephalic and atraumatic. Eyes; pale conjunctivae, no icterus. NECK: Supple. No JVD. No meningeal signs of irritation. LUNGS: Reduced air entry at bases. No wheeze. No rhonchi. CARDIAC: S1 and S2 appears regular, without any murmur. No gallop. No rub. ABDOMEN: Colostomy in place, ascites noted, vague discomfort noted, but no peritoneal sign. EXTREMITIES: Trace lower extremity edema. NEUROLOGIC: Nonfocal examination. All necessary equipment required for this particular patient at home has been arranged with help of hospice team. The patient is medically stable for discharge today. Job ID: [id number]
--- NOTE | 2019-07-02 14:12 | PRG ---
DATE OF SERVICE: SUBJECTIVE: Mr. Mendieta is status post June 21 laparotomy/colostomy. His colostomy has been working well initially, but he has become depressed and will not eat apparently. Hospice has been arranged, being transferred to home for hospice care. This will occur today. His wound is well healed. I will ask the nurses to remove his arpan. OBJECTIVE: LUNGS: Clear to auscultation. CARDIAC: Rhythm rate and rhythm without murmur or gallop. ABDOMEN: Soft and distended. Mild tympany. PATHOLOGY: Carcinomatosis. ASSESSMENT/PLAN: Carcinomatosis, deteriorating condition. PLAN: Agree with discharge hospice and palliative care. Of note, this morning, he did not remember who I was. Job ID: [id number]
--- NOTE | 2019-07-03 09:31 | EKG ---
Test Reason : Blood Pressure : / mmHG Vent. Rate : 115 BPM Atrial Rate : 115 BPM P-R Int : 000 ms QRS Dur : 104 ms QT Int : 374 ms P-R-T Axes : 160 -11 -26 degrees QTc Int : 517 ms Unusual P axis, possible ectopic atrial tachycardia Nonspecific T wave abnormality Abnormal ECG When compared with ECG of 22-JUN-2019 12:46, (Unconfirmed) Ectopic atrial rhythm has replaced Sinus rhythm Nonspecific T wave abnormality, worse in Lateral leads Confirmed by LIZBETH SARAH (2) on 07/03/2019 9:30:54 AM Referred By: LUCAS Confirmed By:LIZBETH SARAH
--- NOTE | 2019-07-03 09:42 | EKG ---
Test Reason : Blood Pressure : / mmHG Vent. Rate : 111 BPM Atrial Rate : 111 BPM P-R Int : 218 ms QRS Dur : 096 ms QT Int : 318 ms P-R-T Axes : 028 -07 -05 degrees QTc Int : 432 ms Sinus tachycardia with 1st degree A-V block Low voltage QRS Nonspecific T wave abnormality Abnormal ECG When compared with ECG of 26-JUN-2019 09:14, (Unconfirmed) Sinus rhythm has replaced Ectopic atrial rhythm Confirmed by LIZBETH SARAH (2) on 07/03/2019 9:42:16 AM Referred By: LUCAS Confirmed By:LIZBETH SARAH
--- NOTE | 2019-07-03 10:28 | EKG ---
Test Reason : AFIB Blood Pressure : / mmHG Vent. Rate : 139 BPM Atrial Rate : 140 BPM P-R Int : 000 ms QRS Dur : 108 ms QT Int : 320 ms P-R-T Axes : 000 -14 042 degrees QTc Int : 486 ms Atrial fibrillation with rapid ventricular response Low voltage QRS Abnormal ECG When compared with ECG of 27-JUN-2019 08:19, (Unconfirmed) Atrial fibrillation has replaced Sinus rhythm Nonspecific T wave abnormality no longer evident in Lateral leads Confirmed by LIZBETH SARAH (2) on 07/03/2019 10:27:46 AM Referred By: NATE Confirmed By:LIZBETH SARAH
== END 2019-07-02 14:06 | disposition hospice, home (50) | DRG 329 ==
LOC: T4-B 00:26 → 2NO 06-20 13:16 → CCU 06-21 23:21 → IMCU/EMU 06-27 19:49
PROVIDERS: ADMIT Internal Medicine; ATTEND Internal Medicine
PROC: 02583ZZ Destruction of Conduction Mechanism, Percutaneous Approach (ICD-10-PCS; 2019-06-20)
PROC: 4A023FZ Measurement of Cardiac Rhythm, Percutaneous Approach (ICD-10-PCS; 2019-06-20)
PROC: 4A0234Z Measurement of Cardiac Electrical Activity, Percutaneous Approach (ICD-10-PCS; 2019-06-20)
PROC: 02K83ZZ Map Conduction Mechanism, Percutaneous Approach (ICD-10-PCS; 2019-06-20)
PROC: 0D1L0Z4 Bypass Transverse Colon to Cutaneous, Open Approach (ICD-10-PCS; principal; 2019-06-21)
PROC: 0DBU0ZZ Excision of Omentum, Open Approach (ICD-10-PCS; 2019-06-21)
PROC: 30233N1 Transfusion of Nonautologous Red Blood Cells into Peripheral Vein, Percutaneous Approach (ICD-10-PCS; 2019-06-22)
PROC: 3E033XZ Introduction of Vasopressor into Peripheral Vein, Percutaneous Approach (ICD-10-PCS; 2019-06-22)
DX: C78.6 Secondary malignant neoplasm of retroperitoneum and peritoneum (principal); J18.9 Pneumonia, unspecified organism; E43 Unspecified severe protein-calorie malnutrition; Z51.5 Encounter for palliative care; J96.01 Acute respiratory failure with hypoxia; J96.02 Acute respiratory failure with hypercapnia; R53.2 Functional quadriplegia; C16.9 Malignant neoplasm of stomach, unspecified; N17.9 Acute kidney failure, unspecified; I48.4 Atypical atrial flutter; N13.30 Unspecified hydronephrosis; R18.0 Malignant ascites; R64 Cachexia; I47.1 Supraventricular tachycardia; E87.1 Hypo-osmolality and hyponatremia; D62 Acute posthemorrhagic anemia; E87.2 Acidosis; Z96.642 Presence of left artificial hip joint; N18.9 Chronic kidney disease, unspecified; K21.9 Gastro-esophageal reflux disease without esophagitis; D63.1 Anemia in chronic kidney disease; I11.0 Hypertensive heart disease with heart failure; N18.3 Chronic kidney disease, stage 3 (moderate); D69.6 Thrombocytopenia, unspecified; I48.0 Paroxysmal atrial fibrillation; I49.3 Ventricular premature depolarization; I49.1 Atrial premature depolarization; Z68.23 Body mass index [BMI] 23.0-23.9, adult; Z88.8 Allergy status to other drugs, medicaments and biological substances; Z87.891 Personal history of nicotine dependence; Z79.899 Other long term (current) drug therapy
CPT/HCPCS: 36415; 36416; 36430; 71045; 74018; 74022; 74176; 74270; 76942; 78708; 80048; 80053; 80069; 80202; 81001; 82570; 82728; 82805; 83605; 83690; 83735; 83880; 84100; 84145; 84156; 84300; 84540; 85025; 85027; 86850; 86870; 86900; 86901; 86922; 87070; 87086; 87205; 88307; 93005; 93010; 93306; 93613; 93621; 93623; 93653; 94002; 94003; 94640; A4641; A9562; C1730; C1732; C1769; C9113; J0171; J0282; J0696; J1100; J1170; J1265; J1644; J1650; J1720; J1885; J1940; J2001; J2250; J2270; J2310; J2370; J2405; J2704; J2795; J3010; J3370; J3490; J7050; J7070; J7620; P9016; P9045; P9047; Q9963; S0020; S0028